=== PATIENT | male | born 1955 | race Caucasian/White ===

== ENCOUNTER 2020-12-17 09:50 | Outpatient (CLI) | payer OTHER, SELFPAY ==
--- NOTE | 2020-12-17 10:00 | CT_ITS ---
WS: [id number] LDCT LUNG CANCER SCREENING TECHNIQUE: Noncontrast CT of the chest with coronal and sagittal reformatted images. CLINICAL INFORMATION: lung screening COMPARISON: CT chest 8 DLP: 57.75 mGy.cm DIvol: 1.[address] scans at [facility] use at least one of these dose optimization techniques: automat ed exposure control; mA and/or kV adjustment per patient size (includes targeted exams where dose is matched to clinical indication); or iterative reconstruction. FINDINGS: Advanced chronic emphysematous changes. Calcified granulomatous disease. Bilateral perihilar and lowe r lobe bronchiectasis. Nodular fibrotic infiltrates within the lingula and left lower lobe similar to 2018 with subsegmental atelectasis.. Enlarged central pulmonary arteries can be seen with pulmonary arterial hypertension. Aortic calcification. No mediastinal or hilar lymphadenopathy. Chronic appeari ng anterior wedging in the lower thoracic spine. Mild thoracic kyphosis. CT/CT lung screening [id number] IMPRESSION: LUNG-RADS: 2-Benign Appearance or Behavior FOLLOW UP: 12 Month: Continue annual screening with LDCT
== END 2020-12-17 09:51 | disposition home or self-care (01) ==
PROVIDERS: Visit Provider Internal Medicine Pulmonary Disease
DX: Z12.2 Encounter for screening for malignant neoplasm of respiratory organs (principal); Z87.891 Personal history of nicotine dependence
CPT/HCPCS: 71271

== ENCOUNTER 2021-01-20 12:53 | Outpatient (CLI) | payer OTHER, SELFPAY ==
--- NOTE | 2021-01-20 13:00 | XR_ITS ---
WS: [id number] HAND LEFT TECHNIQUE: 3 views of the left hand CLINICAL INFORMATION: rule out inflammatory arthritis,STIFFNESS JOINT OF BOTH HAND COMPARISON: None. FINDINGS: Normal metacarpals. Normal MCP joint. Metacarpal heads are normal in appearance. Moderate PIP and DIP joint space narrowing. No evidence of acute fracture or dislocation. Degenerative arthritis first CM C and STT. Hypertrophic spurring at the DRUJ. Radiocarpal joint: Normal. Carpal bones: Normal. XR/XR hand LT min 3V* [id number] IMPRESSION: No significant erosive changes.
--- NOTE | 2021-01-20 13:30 | XR_ITS ---
WS: [id number] HAND RIGHT TECHNIQUE: 3 views of the right hand CLINICAL INFORMATION: rule out inflammatory arthritis,STIFFNESS JOINT OF BOTH HAND COMPARISON: None. FINDINGS: Normal metacarpals. Normal MCP joint. Metacarpal heads are normal in appearance. Advanced narrowing o f the second and third DIP joints with hypertrophic spurring. No evidence of acute fracture or disloc ation. No significant erosive changes. Chronic well-corticated ulna styloid avulsion. Radiocarpal joint: Moderate narrowing Carpal bones: Normal. XR/XR hand RT min 3V* [id number] IMPRESSION: 1. Advanced narrowing of the second and third DIP joints with hypertrophic spu rring. 2. Moderate narrowing of the radiocarpal joint. 3. No significant erosive changes.
== END 2021-01-20 12:54 | disposition home or self-care (01) ==
PROVIDERS: Visit Provider Internal Medicine Pulmonary Disease
DX: M25.641 Stiffness of right hand, not elsewhere classified; M25.642 Stiffness of left hand, not elsewhere classified
CPT/HCPCS: 73130

== ENCOUNTER 2021-02-12 10:47 | Outpatient (CLI) | payer OTHER, SELFPAY ==
--- NOTE | 2021-02-12 11:00 | XR_ITS ---
WS: [id number] XR lumbar spine 2-3V* [id number] REASON FOR EXAM: VERTEBROGENIC LOW BACK FINDINGS: Mild rotatory scoliosis convex left. No significant compression deformity or other focal vertebral body abnormality. Moderate narrowing of the L4-L5 disc space with moderately severe narrowing of the L5-S1 disc space. Moderately severe degenerative changes in the facet joints at L4-L5 and L5-S1. No spondylolysis identified. No significant spondylolisthesis. XR/XR lumbar spine 2-3V* [id number] IMPRESSION: Degenerative spondylosis most significant at L4-L5 and L5-S1.
--- NOTE | 2021-02-12 11:02 | XR_ITS ---
WS: [email or web address] XR thoracic spine 3V* [id number] REASON FOR EXAM: PAIN IN TSPINE FINDINGS: Normal alignment of the thoracic spine. No significant vertebral body abnormality. Mild narrowing of the intervertebral disc spaces in the mid and lower thoracic spine with small anter ior osteophytes. XR/XR thoracic spine 3V* [id number] IMPRESSION: Minimal change of degenerative spondylosis in the thoracic spine. No acute abno rmality.
== END 2021-02-12 10:48 | disposition home or self-care (01) ==
LOC: RAD 10:51
PROVIDERS: Visit Provider Anesthesiology Pain Medicine
DX: M54.6 Pain in thoracic spine (principal); M47.816 Spondylosis without myelopathy or radiculopathy, lumbar region; M47.817 Spondylosis without myelopathy or radiculopathy, lumbosacral region
CPT/HCPCS: 72072; 72100

== ENCOUNTER 2021-04-23 11:38 | Outpatient (CLI) | payer OTHER, SELFPAY ==
--- NOTE | 2021-04-23 11:48 | XR_ITS ---
WS: [id number] Exam: XR chest 2V* [id number] Date/Time of Exam: 04/23/2021 11:50 AM Reason For Exam: RIB FRACTURE - S/P TRAUMA Comparison 09/30/2017. There are chronic pulmonary changes of the fibrosis and scarring in both lower lung zones. The appear ance is stable. The lungs are markedly hyperinflated. Advanced changes of the emphysema seen in the u pper lung zones with hyperlucency. Heart size is top limits normal. Mediastinal contour is within nor mal limits. Bony structures appear to be intact. No pneumothorax. Prominent main pulmonary arteries. XR/XR chest 2V* [id number] IMPRESSION: 1. Extensive chronic changes of fibrosis and scarring in both lower lung zones. 2. Pulmonary hyperinflation and advanced emphysematous changes particularly in the upper lung zones. 3. No acute rib fracture or pneumothorax. 4. Prominent main pulmonary arteries which may indicate pulmonary hypertension.
== END 2021-04-23 11:39 | disposition home or self-care (01) ==
LOC: RAD 11:41
PROVIDERS: Visit Provider Internal Medicine Pulmonary Disease
DX: S22.39XA Fracture of one rib, unspecified side, initial encounter for closed fracture (principal); X58.XXXA Exposure to other specified factors, initial encounter
CPT/HCPCS: 71046

== ENCOUNTER → 2021-10-20 09:04 | Outpatient (BNVA) | payer OTHER, SELFPAY | PROVIDERS: Visit Provider Internal Medicine Pulmonary Disease | DX: R06.09 Other forms of dyspnea (principal); J44.9 Chronic obstructive pulmonary disease, unspecified; G47.33 Obstructive sleep apnea (adult) (pediatric); M25.641 Stiffness of right hand, not elsewhere classified; M25.642 Stiffness of left hand, not elsewhere classified; Z87.891 Personal history of nicotine dependence; J22 Unspecified acute lower respiratory infection; G82.20 Paraplegia, unspecified; Z99.3 Dependence on wheelchair; Z99.81 Dependence on supplemental oxygen | CPT/HCPCS: 99214 ==

== ENCOUNTER 2021-12-18 08:02 | Outpatient (CLI) | payer OTHER, SELFPAY ==
--- NOTE | 2021-12-18 08:24 | CT_ITS ---
WS: [email or web address] LDCT LUNG CANCER SCREENING TECHNIQUE: Noncontrast CT of the chest with coronal and sagittal reformatted images. CLINICAL INFORMATION: lung screening COMPARISON: CT December 17, 2020. DLP: 83.67 mGy.cm DIvol: Mean CTDIvol: 1.60 (mGy) All CT scans at [facility] use at least one of these dose optimization techniques: automat ed exposure control; mA and/or kV adjustment per patient size (includes targeted exams where dose is matched to clinical indication); or iterative reconstruction. FINDINGS: Aortic and coronary calcification. Small esophageal hiatal hernia. Advanced chronic emphysematous yenny nges. Calcified granulomatous disease. Bilateral perihilar and lower lobe bronchiectasis unchanged fr om previous. Nodular fibrotic infiltrates within the lingula and left lower lobe improved compared to 2020 with subsegmental atelectasis Enlarged central pulmonary arteries can be seen with pulmonary arterial hypertension unchanged. No me diastinal or hilar lymphadenopathy. Chronic appearing anterior wedging in the lower thoracic spine T1 1 is stable. Mild thoracic kyphosis. CT/CT lung screening [id number] IMPRESSION: LUNG-RADS: 2-Benign Appearance or Behavior FOLLOW UP: 12 Month: Continue annual screening with LDCT
== END 2021-12-18 08:03 | disposition home or self-care (01) ==
LOC: RAD 08:03
PROVIDERS: Visit Provider Internal Medicine Pulmonary Disease
DX: Z12.2 Encounter for screening for malignant neoplasm of respiratory organs (principal); Z87.891 Personal history of nicotine dependence
CPT/HCPCS: 71271

== ENCOUNTER → 2022-04-22 10:21 | Outpatient (BNVA) | payer OTHER, SELFPAY | PROVIDERS: Visit Provider Internal Medicine Pulmonary Disease | DX: R06.09 Other forms of dyspnea (principal); Z87.891 Personal history of nicotine dependence; R07.9 Chest pain, unspecified; J44.9 Chronic obstructive pulmonary disease, unspecified; M25.641 Stiffness of right hand, not elsewhere classified; M25.642 Stiffness of left hand, not elsewhere classified; G47.33 Obstructive sleep apnea (adult) (pediatric); Z99.81 Dependence on supplemental oxygen; Z77.22 Contact with and (suspected) exposure to environmental tobacco smoke (acute) (chronic) | CPT/HCPCS: 99214 ==

== ENCOUNTER 2022-09-11 07:34 | Outpatient (CLI) | payer OTHER, SELFPAY ==
--- NOTE | 2022-09-11 07:42 | ECG_ITS ---
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 Interpretive Statements NAME OF STUDY: LEXISCAN SESTAMIBI STRESS TEST INDICATION: Dyspnea on exertion PROCEDURE: At the baseline, the blood pressure was 117/54 mmHg with a heart rate of 50 bpm. The electrocardiogram showed sinus bradycardia, left axis deviation. Possible old anteroseptal infarct. Deep T wave inversion in lead II, III, aVF, V5 and V6. The Lexiscan was infused over a period of 20 seconds. A total of 0.4 milligrams of Lexiscan was infused. The stress phase was continued for a total of 5 minutes. Heart rate at the end of the stress phase was 60 bpm with a blood pressure 127/58 mm Hg. The EKG at the peak infusion revealed no significant ST-T wave changes. Sestamibi was injected 20 seconds after the Lexiscan infusion. Blood pressure at the end of the recovery phase was 107/64 mmHg with a heart rate of 66 beats per minute. CONCLUSION: 1. Non diagnostic EKG changes with the LexiScan infusion [address]-T wave changes. 2. No LexiScan induced chest pain or cardiac arrhythmia. 3. Normal blood pressure and heart rate response. 4. Sestamibi/sestamibi perfusion scan pending; see separate report. Electronically Signed On 09-20-2022 13:28:39 CDT by Asia Saha M.D. [id number]
--- NOTE | 2022-09-11 07:43 | NMCV_ITS ---
NM dillon perf SPECT r/s* [id number] Suraj Sandy Age: 67 Gender: M : 1955 Exam Date: 09/11/2022 08:00 Ordering Phys: Michael Chavez MD Technologist: MINDI Don Exam Location: [facility] Indications: SHORTNESS OF BREATH, CHEST PAIN STRESS TEST Please see separate stress test report in [facility] for full findings IMAGE PROTOCOL Rest/Stress 1 Lexiscan Day Radiopharmaceutical Dose (mCi) Administration Site Administered by Rest: Tc-99m 11.0 IV Jim Larry, ORACLE WMS CONSULTANT Sestamibi Stress:Tc-99m 30.2 IV Jim Larry, ORACLE WMS CONSULTANT Sestamibi Rest: 11-Sep-2022 60 Discovery 630 Stress: 11-Sep-2022 30 Discovery 630 0.4mg Lexiscan. Images obtained in supine and prone position. SPECT RESULTS Technical Quality: Excellent Raw Data Analysis: Normal Image Corrections: No attenuation or motion correction applied Summed Stress Score: 10 Summed Rest Score: 8 Summed Difference Score: 5 PERFUSION FINDINGS Medium sized perfusion abnormality of moderate severity of mid inferior, mid inferoseptal and apical septal long on rest images with reversibility noted in mid to apical inferior and basal to mid inferolateral , apical septal and apical lateral long on stress images. There is improved tracer uptake in prone stress images. FUNCTIONAL RESULTS (calculated via Gated SPECT) Stress Image LV EF (%): 65 Stress EDV (mL):125 TID: 0.81 Stress ESV (mL):44 FUNCTIONAL FINDINGS: The left ventricle is normal in size. Transient Ischemia Dilatation of 0.81. The left ventricular ejection fraction is normal with a value of 65%. There is normal left ventricular wall thickening. Normal end diastolic and end systolic volumes. IMPRESSIONS 1. Medium sized partially reversible perfusion abnormality of moderate severity of mid to apical inferior, basal to mid inferolateral , apical septal, apical anterior and apical lateral long. There is improved tracer uptake in prone stress images. 2. This may represent old myocardial infarction with moderate per-infarct ischemia in right coronary artery and left anterior descending artery territory. However, specifity of this finding is low given findings on prone images. 3. Overall left ventricular systolic function is normal without regional wall motion abnormalities, LVEF=65%. 4. EKG portion of the study will be reported separately. Asia Saha MD (Electronically Signed) Final Date: 18 September 2022 20:15 S
[2022-09-11 08:01] VITALS: BMI 18.6
[2022-09-11] MEDS: regadenoson 0.4 Mg/5 ml Syringe IVP (09:14)
[2022-09-11 09:35] VITALS: BP 127/58; PULSE 72
== END 2022-09-11 07:35 | disposition home or self-care (01) ==
PROVIDERS: Visit Provider Internal Medicine Pulmonary Disease
DX: R06.09 Other forms of dyspnea (principal); R07.9 Chest pain, unspecified; R94.39 Abnormal result of other cardiovascular function study
CPT/HCPCS: 36415; 78452; 93017; 96374; A9500; J2785

== ENCOUNTER → 2022-12-21 13:07 | Outpatient (BNVA) | payer OTHER, SELFPAY | PROVIDERS: Visit Provider Internal Medicine Pulmonary Disease | DX: J44.9 Chronic obstructive pulmonary disease, unspecified (principal); M25.641 Stiffness of right hand, not elsewhere classified; M25.642 Stiffness of left hand, not elsewhere classified; Z87.891 Personal history of nicotine dependence; G47.33 Obstructive sleep apnea (adult) (pediatric); Z12.2 Encounter for screening for malignant neoplasm of respiratory organs; Z99.81 Dependence on supplemental oxygen; Z99.89 Dependence on other enabling machines and devices; Z77.22 Contact with and (suspected) exposure to environmental tobacco smoke (acute) (chronic) | CPT/HCPCS: 71046; 99214 ==

== ENCOUNTER 2023-01-05 12:19 | Outpatient (CLI) | payer OTHER, SELFPAY ==
--- NOTE | 2023-01-05 12:23 | CT_ITS ---
WS: [id number] LDCT LUNG CANCER SCREENING HISTORY: Cancer Screening TECHNIQUE: Axial imaging performed from the apices to 1 cm below the costophrenic angles. Coronal and sagittal reformats are submitted with axial MIP series. All CT scans at [facility] use at least one of these dose optimization techniques: automated exposure control; mA and/or kV adjustment per patient size (includes targeted exams where dose is matched to clinical indication); or iterativ e reconstruction. DLP: 49.31 mGy.cm DIvol: Mean CTDIvol: 0.80 (mGy) COMPARISON: 12/18/2021 Diagnostic quality: Satisfactory Lungs: Marked pulmonary hyperexpansion with bullous disease in the upper lung meredith. Crowding of the lung markings in the lower lung meredith. Partial atelectasis superior segment LEFT lower lobe. There is mild bronchiectasis in the lower lung meredith. No mass or interval change. No pulmonary nodules are identified within the fibrosis and atelectasis. Heart: Normal size heart with no pericardial effusion.. Other findings: Moderate atherosclerosis aorta. Pulmonary arteries large. No adenopathy. No adrenal m ass. Mild anterior wedging of T11 is stable. IMPRESSION: CT/CT lung screening [id number] LUNG-RADS: 2-Benign Appearance or Behavior FOLLOW UP: 12 Month: Continue annual screening with LDCT OTHER FINDINGS (S MODIFIER): None.
== END 2023-01-05 12:20 | disposition home or self-care (01) ==
LOC: RAD 12:20
PROVIDERS: Visit Provider Internal Medicine Pulmonary Disease
DX: Z12.2 Encounter for screening for malignant neoplasm of respiratory organs (principal); Z87.891 Personal history of nicotine dependence
CPT/HCPCS: 71271

== ENCOUNTER → 2023-06-21 09:34 | Outpatient (BNVA) | payer OTHER, SELFPAY | PROVIDERS: Visit Provider Internal Medicine Pulmonary Disease | DX: J44.9 Chronic obstructive pulmonary disease, unspecified (principal); M25.641 Stiffness of right hand, not elsewhere classified; M25.642 Stiffness of left hand, not elsewhere classified; Z87.891 Personal history of nicotine dependence; R06.00 Dyspnea, unspecified; G47.33 Obstructive sleep apnea (adult) (pediatric) | CPT/HCPCS: 99214 ==

== ENCOUNTER → 2023-09-16 08:23 | Outpatient (BNVA) | payer OTHER, SELFPAY | DX: G56.03 Carpal tunnel syndrome, bilateral upper limbs (principal); G56.20 Lesion of ulnar nerve, unspecified upper limb | CPT/HCPCS: 95910 ==

== ENCOUNTER → 2023-09-27 11:21 | Outpatient (BNVA) | payer OTHER, SELFPAY | PROVIDERS: Visit Provider Internal Medicine Cardiovascular Disease | DX: R06.02 Shortness of breath (principal); R07.9 Chest pain, unspecified | CPT/HCPCS: 93005; 99205 ==

== ENCOUNTER 2023-11-03 08:54 | Outpatient (CLI) | payer OTHER, SELFPAY ==
--- NOTE | 2023-11-03 09:15 | USCV_ITS ---
Du Suraj Age: 68 Gender: M : 1955 Exam Date: 11/03/2023 09:23 Ordering Phys: Justus Abdul MD ([email or web address]) Technologist: Exam Location: [facility] [place] Indication: cp BP: 125 / 75 HR: 231 Rhythm: Sinus Technical Quality: Adequate MEASUREMENTS (Male / Female) Normal Values 2D ECHO LV Diastolic Diameter PLAX 4.0 cm 4.2 - 5.9 / 3.9 - 5.3 cm IVS Diastolic Thickness 1.7 cm 0.6 - 1.0 / 0.6 - 0.9 cm IVS Systolic Thickness 1.8 cm LVPW Diastolic Thickness 1.1 cm 0.6 - 1.0 / 0.6 - 0.9 cm LVPW Systolic Thickness 2.0 cm LVOT Diameter 2.0 cm LV Ejection Fraction 2D Teich 52.7 % LA Diameter 3.4 cm Aorta at Sinotubular Diameter 2.9 cm M-MODE LA Ao Ratio MM 1.1 AV Cusp Separation MM 2.4 cm DOPPLER AV Peak Velocity 113.0 cm/s TR Peak Velocity 252.0 cm/s TR Peak Gradient 25.4 mmHg TV Peak E Velocity 65.0 cm/s Right Atrial Pressure 3.0 mmHg Pulmonary Artery Systolic Pressu 28.4 mmHg PV Peak Velocity 94.3 cm/s FINDINGS Left Ventricle Normal LV size with borderline low ejection fraction of 50 to 55%.abnormal septal motion consistent with conduction abnormality. Right Ventricle The right ventricle is normal in size and function. Right Atrium The right atrium is normal in size. Left Atrium The left atrium is normal in size. Mitral Valve No gross abnormalities noted Aortic Valve Trace aortic valve regurgitation. Tricuspid Valve Trace to mild tricuspid valve regurgitation. Pulmonic Valve No gross abnormality noted Pericardium No pericardial effusion. Aorta Normal aortic annulus size. IVC Inferior vena cava not visualized. CONCLUSIONS Normal LV size with borderline low ejection fraction of 50 to 55%.abnormal septal motion consistent with conduction abnormality. Trace aortic valve regurgitation. Trace to mild tricuspid valve regurgitation. Estimated pulmonary artery peak systolic pressure 28 mmHg There is no pericardial effusion. There are no intracardiac masses. No similar previous studies are available for comparison Dr Justus Abdul MD [facility] (Electronically Signed) Final Date: 04 November 2023 09:03 S
== END 2023-11-03 08:55 | disposition home or self-care (01) ==
PROVIDERS: Visit Provider Internal Medicine Cardiovascular Disease
DX: R93.1 Abnormal findings on diagnostic imaging of heart and coronary circulation (principal); R06.09 Other forms of dyspnea
CPT/HCPCS: 36415; 80048; 83880; 93306

== ENCOUNTER 2024-03-13 18:03 | Inpatient (IN) | payer OTHER, SELFPAY ==
[2024-03-13 18:07] VITALS: BP 137/89; PULSE 89; RESP 18; TEMP 37.1; O2SAT 96
--- NOTE | 2024-03-13 18:17 | ECG_ITS ---
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 Measurements Intervals [place] Rate: 90 P: 113 OK: 168 QRS: -88 QRSD: 116 T: 90 QT: 342 QTc: 420 Interpretive Statements SINUS RHYTHM PATTERN CONSISTENT WITH PULMONARY DISEASE LEFT ANTERIOR FASCICULAR BLOCK [QRS AXIS <= -45, QR IN I, RS IN II] MODERATE ST DEPRESSION [0.05+ mV ST DEPRESSION] Compared to ECG 09/27/2023 11:24:59 ST (T wave) deviation now present Electronically Signed On 03-14-2024 23:50:46 PAD MACHINE FEEDER by Justus Abdul M.D. [id number]
--- NOTE | 2024-03-13 18:18 | XRR_ITS ---
PROCEDURE INFORMATION: Exam: XR Chest Exam date and time: 03/13/2024 6:32 PM Age: 68 years old Clinical indication: Dyspnea TECHNIQUE: Imaging protocol: Radiologic exam of the chest. Views: 1 view. COMPARISON: CT lung screening [id number] 01/05/2023 1:00 PM FINDINGS: Lungs: Curvilinear atelectasis or scarring in the left lung base. There appears to be increased interstitial lung markings at the lung bases. No consolidation. Pleural spaces: Unremarkable. No pleural effusion. No pneumothorax. Heart/Mediastinum: Cardiomegaly with pulmonary vascular congestion. Bones/joints: Unremarkable. XR/XR chest 1V portable [id number] IMPRESSION: Cardiomegaly with pulmonary vascular congestion. Findings suggestive of interstitial pulmonary edema.
[2024-03-13 18:24] VITALS: BP 135/87; PULSE 84; RESP 16; O2SAT 96
--- NOTE | 2024-03-13 18:39 | ED_ITS ---
HPI - SOB/Dyspnea 2 General: Chief Complaint: Shortness of Breath/Dyspnea Stated Complaint: edema/sob Time Seen by Provider: 03/13/24 18:17 History of Present Illness: HPI Narrative: Patient presents to the ER with complaints of shortness of breath and bilateral lower extremity edema with these been going on for the past 4 to 5 days. EMS reports he was 81% on room air and at their time of arrival. Per patient he usually wears 2 L during the daytime and 4 L at night. Also reports some intermittent chest pain. Does have a history of COPD denies CHF or any diuretics. Related Data Home Medications Medication Instructions Recorded Confirmed loratadine 10 mg tablet (Allergy 10 mg PO DAILY 11/13/20 09/27/23 Relief (loratadine)) trazodone 100 mg tablet 100 mg PO DAILY 11/13/20 09/27/23 ipratropium 20 mcg-albuterol 100 1 puff inhalation Q6H PRN 06/21/23 09/27/23 mcg/actuation mist for inhalation (Combivent Respimat) Previous Rx's Medication Instructions Recorded nebulizer accessories #1 ea 11/13/20 budesonide 160 mcg-glycopyr 9 2 inh inhalation BID #10.7 grams 04/23/21 mcg-formot 4.8 mcg/actuation HFA inhaler (Breztri Aerosphere) ipratropium 0.5 mg-albuterol 3 mg 3 ml inhalation Q6H PRN shortness 04/22/22 (2.5 mg base)/3 mL nebulization of breath or wheezing #180 mL soln Portable Oxygen #1 ea 12/21/22 aspirin 81 mg tablet,delayed 81 mg PO DAILY #30 tabs 09/27/23 release (Adult Low Dose Aspirin) Allergies Allergy/AdvReac Type Severity Reaction Status Date / Time adhesive tape Allergy Unknown Unknown Verified 09/27/23 10:29 meperidine Allergy Unknown Unknown Verified 09/27/23 10:29 Review of Systems 2 General: Reports: 10 or more systems reviewed and unremarkable except in HPI and below PFSH ED 2 PFSH: Family History Mother CAD (coronary artery disease) Father Hypertension Denies family history of Diabetes Social History Smoking and tobacco/nicotine status: former use of tobacco/nicotine Quit status (tobacco/nicotine): has quit using Year quit tobacco: does not remember Former quit date comment: 1ppd x 11 years Second hand smoke exposure: Yes Physical Exam 2 Const: COMMON NORMALS: no acute distress, average body habitus, patient oriented x3, no limitations, healthy appearing, alert and well nourished HENMT: COMMON NORMALS: normocephalic, atraumatic, hearing grossly normal bilaterally, external ears normal, Normal external nose present and moist oral mucous membranes HEAD & SCALP: normocephalic and atraumatic NOSE: Normal external nose present EXTERNAL EAR: Yes external ears normal Neck/C-Spine: COMMON NORMALS: no JVD Chest: COMMONS NORMALS: normal inspection of the chest and normal palpation of entire chest wall Resp: COMMON NORMALS: normal respiratory effort, No retractions and No use of accessory muscles; negative for clear to auscultation bilaterally (Decreased breath sounds bilaterally worse at the bases) AUSCULTATION: not clear to auscultation bilaterally (Decreased breath sounds bilaterally worse at the bases) Cardio: COMMON NORMALS: no JVD, regular rate, regular rhythm, S1 normal heart sound present, S2 normal heart sound present, No gallops present (Cardio), No clicks present (Cardio) and No murmurs present (Cardio) RATE: regular rate RHYTHM: regular rhythm HEART SOUNDS: S1 normal heart sound present and S2 normal heart sound present GI: COMMON NORMALS: Normal to inspection, nondistended, normoactive bowel sounds present, Soft to palpation, non-tender, No hepatosplenomegaly present and no masses PALPATION: Yes Soft to palpation and Yes No hepatosplenomegaly present Extremity: NARRATIVE EXTREMITY EXAM: 2+ pitting edema bilateral lower extremi ties Neuro: COMMON NORMALS: patient oriented x3 SENSORIUM/ORIENTATION: Yes alert Course 2 Vital Signs: Vital signs: Vital Signs Temperature 98.8 F 03/13/24 18:07 Pulse Rate 94 03/13/24 19:31 Respiratory Rate 26 H 03/13/24 19:31 Blood Pressure 138/99 03/13/24 19:31 Pulse Oximetry 95 03/13/24 19:31 Oxygen Delivery Me thod Nasal Cannula 03/13/24 19:31 Oxygen Flow Rate 5 03/13/24 19:31 MDM - SOB/Dyspnea Medical Decision Making Discussed the results with the patient and with Dr. Hager we will place patient observation. Patient appears to be in hypoxic respiratory failure with CHF. We did give the patient 40 of IV Lasix. Patient's BNP was elevated as well as his troponin slightly elevated 37 Medical Records I reviewed the patient's medical records. Lab Data I reviewed the patient's lab results. 03/13/24 18:30 03/13/24 18:30 Labs/Radiology: Radiology Impressions Chest X-Ray 03/13/24 18:18 IMPRESSION: Cardiomegaly with pulmonary vascular congestion. Findings suggestive of interstitial pulmonary edema. Laboratory Results WBC 9.43 10^3/uL (3.29-11.43) 03/13/24 18:30 RBC 5.43 10^6/uL (3.85-5.65) 03/13/24 18:30 Hgb 16.00 g/dL (11.27-16.99) 03/13/24 18:30 Hct 50.7 % (37-53) 03/13/24 18:30 MCV 93.4 fl (82-101) 03/13/24 18:30 MCH 29.5 pg (27-33) 03/13/24 18:30 MCHC 31.6 g/dL (30-55) 03/13/24 18:30 RDW 15.4 % (12.1-15.1) H 03/13/24 18:30 Plt Count 318 10^3/cmm (157-399) 03/13/24 18:30 MPV 10.3 fL (7.4-10.4) 03/13/24 18:30 Neut % (Auto) 79.5 % 03/13/24 18:30 Lymph % (Auto) 9.9 % 03/13/24 18:30 [place] % (Auto) 8.8 % 03/13/24 18:30 Eos % (Auto) 0.8 % 03/13/24 18: Baso % (Auto) 0.8 % 03/13/24 18:30 Neut # (Auto) 7.49 10^3/uL (1.8-7.7) 03/13/24 18:30 Lymph # (Auto) 0.9 10^3/uL (0.8-4.8) 03/13/24 18:30 [place] # (Auto) 0.8 10^3/uL (0.2-0.9) 03/13/24 18:30 Eos # (Auto) 0.1 10^3/uL (0.0-0.8) 03/13/24 18:30 Baso # (Auto) 0.1 10^3/uL (0.0-0.1) 03/13/24 18:30 Nucleated RBC % (auto) 0 % 03/13/24 18: Nucleated RBCs # 0.0 /100WBC 03/13/24 18:30 Specimen Type Arterial 03/13/24 18:37 Sample Site Brachial, left 03/13/24 18:37 ABG pH 7.36 (7.35-7.45) 03/13/24 18:37 ABG pCO2 63.4 mmHg (35-45) H* 03/13/24 18:37 ABG pO2 70.5 mmHg (80.0-100.0) L 03/13/24 18:37 ABG HCO3 35.6 mmol/L (22-26) H 03/13/24 18:37 ABG O2 Saturation 93.9 03/13/24 18:37 ABG Base Excess 7.4 mmol/L (-2.0-2.0) H 03/13/24 18:37 Isaiah Test N/a 03/13/24 18:37 A-a O2 Gradient 0.5 mmHg (5-10) L 03/13/24 18:37 Hematocrit 48.3 % (42-52) 03/13/24 18:37 Hgb O2 Saturation 89.2 % (95-100) L 03/13/24 18:37 Carboxyhemoglobin 4.1 %THgb (0.4-20.1) 03/13/24 18:37 Methemoglobin 0.9 % (0.4-1.5) 03/13/24 18:37 Total Hemoglobin 15.8 g/dL (14-18) 03/13/24 18:37 Sodium 139.0 mmol/L (131-143) 03/13/24 18:37 Potassium 4.2 mmol/L (3.5-5.0) 03/13/24 18:37 Glucose 81.0 mg/dL (70-115) 03/13/24 18:37 Ionized Calcium 1.2 mmol/L (1.1-1.4) 03/13/24 18:37 O2 Delivery Device Nc 03/13/24 18:37 O2 Liters/Min 6.0 % 03/13/24 18:37 Field Organizer ID [email or web address] 03/13/24 18:37 Sodium 141 mmol/L (136-145) 03/13/24 18:30 Potassium 5.1 mmol/L (3.5-5.1) 03/13/24 18:30 Chloride 99 mmol/L (98-107) 03/13/24 18:30 Carbon Dioxide 31 mmol/L (22-29) H 03/13/24 18:30 Anion Gap 16.1 (5-19) 03/13/24 18:30 BUN 20 mg/dL (8-23) 03/13/24 18:30 Creatinine 0.7 mg/dL (0.7-1.2) 03/13/24 18:30 GFR Calculation 111.8 mL/min (90-130) 03/13/24 18:30 Glucose 78 mg/dL (65-115) 03/13/24 18:30 Calculated Osmolality 293 mOsm/kg (285-295) 03/13/24 18:30 Calcium 8.6 mg/dL (8.5-10.5) 03/13/24 18:30 Total Bilirubin 0.5 mg/dL (0.15-1.2) 03/13/24 18:30 AST 26 U/L (0-40) 03/13/24 18:30 ALT 33 U/L (0-41) 03/13/24 18:30 Alkaline Phosphatase 110 U/L (40-130) 03/13/24 18:30 Troponin T Baseline 37 ng/L (0-15) H 03/13/24 18:30 NT-Pro-B Natriuret Pep 5361 pg/mL (0-125) H 03/13/24 18:30 Total Protein 6.2 g/dL (6.6-8.7) L 03/13/24 18:30 Albumin 3.5 g/dL (3.5-5.2) 03/13/24 18:30 Globulin 2.7 g/dL (1.3-4.6) 03/13/24 18:30 Coronavirus (PCR) Negative (Negative) 03/13/24 18:22 Influenza A (PCR) Negative (Negative) 03/13/24 18:22 Influenza Type B (PCR) Negative (Negative) 03/13/24 18:22 RSV (PCR) Negative (Negative) 03/13/24 18:22 All radiology interpretation(s) finalized by discharge Discharge Plan Discharge Patient Disposition: Placed in Observation Clinical Impression: Congestive heart failure, Acute exacerbation of chronic obstructive airways disease Coding Level of Care Code ED Armature And Rotor Winder for Nilesh Martin
[2024-03-13 18:49] LABS: ABG PH Result 7.36 (7.35-7.45); Alveolar-Arterial Oxygen Gradi 0.5 mmHg (5-10); Arterial Blood Gas Hematocrit 48.3 % (42-52); Base Excess ABG 7.4 mmol/L (-2.0-2.0); Blood Gas Operator Identificat AMH; Blood Gas Sample Site Brachial, left; Blood Gas Sample Type Arterial; Carboxyhemoglobin 4.1 %THgb (0.4-20.1); HCO3 ABG 35.6 mmol/L (22-26); HGB O2 Sat 89.2 % (95-100); Ionized Calcium Level - ABG 1.2 mmol/L (1.1-1.4); Methemoglobin 0.9 % (0.4-1.5); Oxygen Device NC; Oxygen Saturation ABG 93.9; PO2 ABG 70.5 mmHg (80.0-100.0); Potassium Level - ABG 4.2 mmol/L (3.5-5.0); Total Hemoglobin 15.8 g/dL (14-18)
[2024-03-13 18:50] LABS: ABG PCO2 63.4 mmHg (35-45)
[2024-03-13 18:51] LABS: Basophils # 0.1 10^3/uL (0.0-0.1); Basophils % 0.8 %; Eosinophils # 0.1 10^3/uL (0.0-0.8); Eosinophils % 0.8 %; Hematocrit 50.7 % (37-53); Lymphocytes # 0.9 10^3/uL (0.8-4.8); Lymphocytes % 9.9 %; Mean Corpuscular HGB Conc 31.6 g/dL (30-55); Mean Corpuscular Hemoglobin 29.5 pg (27-33); Mean Corpuscular Volume 93.4 fl (82-101); Mean Platelet Volume 10.3 fL (7.4-10.4); Monocytes # 0.8 10^3/uL (0.2-0.9); Monocytes % 8.8 %; Neutrophils # 7.49 10^3/uL (1.8-7.7); Neutrophils % 79.5 %; Nucleated Red Blood Cells % 0 %; Platelet Count 318 10^3/cmm (157-399); Red Blood Count 5.43 10^6/uL (3.85-5.65); Red Cell Distribution Width 15.4 % (12.1-15.1); White Blood Count 9.43 10^3/uL (3.29-11.43)
[2024-03-13 19:09] LABS: Alanine Aminotransferase 33 U/L (0-41); Alkaline Phosphatase 110 U/L (40-130); Aspartate Amino Transferase 26 U/L (0-40); Blood Urea Nitrogen 20 mg/dL (8-23); Calcium 8.6 mg/dL (8.5-10.5); Creatinine Clr Calc Pharmacy 86.4183; Glucose 78 mg/dL (65-115); Total Bilirubin 0.5 mg/dL (0.15-1.2)
[2024-03-13 19:13] LABS: Troponin(5th) Baseline 37 ng/L (0-15)
[2024-03-13 19:13] LABS: Covid PCR NEGATIVE (Negative); Influenza A NEGATIVE (Negative); Influenza B NEGATIVE (Negative); Respiratory Syncytial Virus Ce NEGATIVE (Negative)
[2024-03-13 19:31] VITALS: BP 138/99; PULSE 94; RESP 26; O2SAT 95
[2024-03-13 19:35] LABS: Chloride 99 mmol/L (98-107); Osmolality Calculated 293 mOsm/kg (285-295); Potassium 5.1 mmol/L (3.5-5.1); Sodium 141 mmol/L (136-145)
[2024-03-13] MEDS: FUROsemide 10 mg/mL SDV 4mL 40 MG IVP (19:56)
[2024-03-13 19:59] LABS: Albumin Level 3.5 g/dL (3.5-5.2); Anion Gap 16.1 (5-19); Carbon Dioxide 31 mmol/L (22-29); Globulin 2.7 g/dL (1.3-4.6); Glomerular Filtration Rate 111.8 mL/min (90-130); Total Protein 6.2 g/dL (6.6-8.7)
[2024-03-13 20:00] LABS: NT Pro B Type Natriuretic Pept 5361 pg/mL (0-125)
--- NOTE | 2024-03-13 20:18 | ECG_ITS ---
[facility] Date: 2024-03-13 Pat Name: Suraj Sandy Department: Room: Gender: Male Area Development Consultant: : 1955 Requested By: Suraj Escobedo Order Number: [id number] Reading MD: JUAN FRANCISCO PETTY Measurements Intervals [place] Rate: 89 P: 104 TN: 181 QRS: 264 QRSD: 110 T: 86 QT: 341 QTc: 417 Interpretive Statements SINUS RHYTHM WITH OCCASIONAL VENTRICULAR PREMATURE COMPLEXES ARM LEADS REVERSED [INVERTED P AND QRS IN I] Compared to ECG 03/13/2024 18:17:20 Ventricular premature complex(es) now present Left anterior fascicular block no longer present ST (T wave) deviation no longer present Electronically Signed On 03-20-2024 23:30:09 AIR AND WATER TESTER by JUAN FRANCISCO PETTY [id number]
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
[2024-03-13 20:50] LABS: Troponin 5 2HR 40.51 ng/L (0-15); Troponin 5 2HR Delta 3.51 ABS# (0-10)
--- NOTE | 2024-03-13 21:03 | USCV_ITS ---
Sandy Suraj Age: 68 Gender: M : 1955 Exam Date: 03/13/2024 21:25 Ordering Phys: Lavon Hager MD Technologist: ROSY Exam Location: [facility] [place] Indication: Evaluate for new CHF O2-dependent 4L, BLE, SOB BP: 138 / 99 HR: 82 Rhythm: Sinus Technical Quality: Adequate MEASUREMENTS (Male / Female) Normal Values 2D ECHO LV Diastolic Diameter PLAX 4.4 cm 4.2 - 5.9 / 3.9 - 5.3 cm IVS Diastolic Thickness 1.2 cm 0.6 - 1.0 / 0.6 - 0.9 cm IVS Systolic Thickness 1.5 cm LVPW Diastolic Thickness 1.0 cm 0.6 - 1.0 / 0.6 - 0.9 cm LVPW Systolic Thickness 2.0 cm LVOT Diameter 2.2 cm LV Ejection Fraction 2D Teich 60.5 % LV Ejection Fraction MOD 4C 67.4 % LV Ejection Fraction MOD 2C 43.5 % LV Ejection Fraction 2C AL 46.6 % LA Diameter 3.9 cm Aorta at Sinotubular Diameter 4.2 cm IVC Diameter 2.0 cm M-MODE LA Ao Ratio MM 1.0 AV Cusp Separation MM 2.4 cm DOPPLER AV Peak Velocity 119.0 cm/s LVOT Peak Velocity 52.0 cm/s AV Area Cont Eq vti 2.3 cm squared AV Area Cont Eq pk 1.7 cm squared MV Peak Velocity 99.0 cm/s MV Area PHT 4.5 cm squared Mitral E to A Ratio 0.8 TV Peak Velocity 268.3 cm/s TR Peak Velocity 297.0 cm/s TR Peak Gradient 35.3 mmHg PV Peak Velocity 82.0 cm/s FINDINGS Left Ventricle Mild concentric left ventricular hypertrophy. Mild diffuse hypokinesia with an ejection fraction of 44%. Flattening of the interventricular septum during systole Right Ventricle Paradoxical septal motion Dilated right ventricle with diffuse hypokinesia and moderately depressed ejection fraction Right Atrium Mildly dilated Left Atrium Mildly dilated Mitral Valve No gross abnormalities noted Aortic Valve Trace aortic valve regurgitation. Tricuspid Valve Mild tricuspid valve regurgitation. Pulmonic Valve Mild pulmonary valve regurgitation. Pericardium No pericardial effusion. Aorta Normal ascending aorta dimension. IVC The inferior vena cava appears normal. CONCLUSIONS Mild concentric left ventricular hypertrophy. Mild diffuse hypokinesia with an ejection fraction of 44%. Dilated right ventricle with diffuse hypokinesia and moderately depressed ejection fraction Trace aortic valve regurgitation. Mild tricuspid valve regurgitation. Mild pulmonary valve regurgitation. Estimated pulmonary artery peak systolic pressure 38 mmHg. There are some features of There is no pericardial effusion. There are no intracardiac masses. Compared to the study from 11/03/2023, there is drop in the ejection fraction of both right and left ventricle Dr Justus Abdul MD [facility] (Electronically Signed) Final Date: 14 March 2024 23:43 S
[2024-03-13 22:57] VITALS: O2SAT 97
[2024-03-13 23:00] VITALS: BP 109/73; PULSE 85; RESP 17; O2SAT 96
[2024-03-13] MEDS: ipratropium-albuterol 3 mL Neb INHALATION (23:06)
[2024-03-13 23:07] VITALS: PULSE 88
[2024-03-13] MEDS: enoxaparin 40 mg/0.4 mL Syringe SUBCUT (23:17)
[2024-03-13] MEDS: trazodone 100 mg Tablet PO (23:17)
[2024-03-13] MEDS: LORazepam 2 mg/mL INJ 1 mL 0.5 MG IVP (23:17)
[2024-03-13 23:27] LABS: Procalcitonin 0.04 ng/mL (0-0.5)
[2024-03-14] VITALS (14 sets, daily range): BP systolic 92–139; BP diastolic 59–78; PULSE 80–103; RESP 14–25; TEMP 36.7; O2SAT 87–97; BMI 20.7
--- NOTE | 2024-03-14 00:18 | ECG_ITS ---
[facility] Test Date: 2024-03-13 Pat Name: Suraj Sandy Department: Room: EDIP Gender: Male Program Management Intern: : 1955 Requested By: Suraj Escobedo Order Number: [id number] Chanelle MD: JUAN FRANCISCO PETTY Measurements Intervals [place] Rate: 90 P: 113 DC: 168 QRS: -88 QRSD: 116 T: 90 QT: 342 QTc: 420 Interpretive Statements SINUS RHYTHM PATTERN CONSISTENT WITH PULMONARY DISEASE LEFT ANTERIOR FASCICULAR BLOCK [QRS AXIS <= -45, QR IN I, RS IN II] MODERATE ST DEPRESSION [0.05+ mV ST DEPRESSION] Compared to ECG 09/27/2023 11:24:59 ST (T wave) deviation now present Electronically Signed On 03-20-2024 23:30:11 LATEX CASTER by JUAN FRANCISCO PETTY [email or web address]
[2024-03-14 01:08] LABS: Troponin 5 6HR 31.26 ng/L (0-15)
[2024-03-14 01:10] LABS: Troponin 5 6HR Delta -5.74 ng/L (0-12)
[2024-03-14] MEDS: ipratropium-albuterol 3 mL Neb INHALATION ×4 (03:25→21:15)
[2024-03-14 05:07] LABS: Anion Gap 5.9 (5-19); Blood Urea Nitrogen 17 mg/dL (8-23); Calcium 8.5 mg/dL (8.5-10.5); Chloride 99 mmol/L (98-107); Creatinine Clr Calc Pharmacy 86.4183; Glomerular Filtration Rate 111.8 mL/min (90-130); Glucose 79 mg/dL (65-115); Magnesium 1.8 mg/dL (1.7-2.3); Osmolality Calculated 294 mOsm/kg (285-295); Phosphorus 3.3 mg/dL (2.5-4.5); Potassium 4.9 mmol/L (3.5-5.1); Sodium 142 mmol/L (136-145)
[2024-03-14 05:15] LABS: Carbon Dioxide 42 mmol/L (22-29)
[2024-03-14] MEDS: budesonide 0.5 mg/2 mL Neb INHALATION (08:29)
--- NOTE | 2024-03-14 09:18 | PC.CHAP ---
Pastoral Care Encounter/Spiritual Assessment Type of Contact [] Declined guinea pig breeder visit [] Patient/Family/Request visit [] Outpatient visit [] Follow-up visit [] Physician referral [] Code/Alert [] Routine visit [] Staff referral [] Actively dying [x] Patient sleeping [] Family support [] [] Out of room [] Palliative care [] [] Receiving care in room [] Pre-surgical visit [] Trauma [] Long length of stay [] ICU visit [] Other: Relational/Emotional Strength [] Patient feels connected with others/family/visitors/staff [] Distress [] Loneliness/isolation [] Abandonment Spirituality of Patient [] Person of [place] [] Attends Spiritism of their [place] [] Believes in Prayer [] Reads Bible or Taoist materials [] There are Spiritual issues to be addressed Disintegrator Feeder Interventions [] Prayer [] Active listening [] Non-anxious presence [] Spiritual/emotional support [] Crisis/trauma care [] Spiritual counseling [] Bereavement support [] Provided bereavement packet [] Provided Bible/devotional materials [] Provided toy/stuffed animal, coloring book to patient or family member [] Provided Communion [] Anointing/[place] [] Salvation [] Completed spiritual assessment [] Other: Impact on Illness or Injury [] Angry [] Fearful [] Anxious [] Often cries [] Exhaustion [] Unable to work [] Unable to attend rastafarian [] Unable to walk/stand [] Unable to read [] Unable to drive [] Unable to eat/drink [] Unable to sleep [] Unable to be with family [] Patient intubated [] Other: Summary Time spent with patient
[2024-03-14] MEDS: aspirin 81 mg EC Tablet PO (09:26)
[2024-03-14] MEDS: baclofen 10 mg Tablet 20 MG PO ×2 (09:26→14:30)
[2024-03-14] MEDS: potassium chloride ER 20 mEq Tablet PO ×2 (09:27→21:01)
[2024-03-14] MEDS: metOLazone 5 MG Tablet PO ×2 (09:27)
[2024-03-14] MEDS: loratadine 10 mg Tablet PO (09:27)
[2024-03-14] MEDS: FUROsemide 10 mg/mL SDV 4mL 40 MG IVP ×2 (09:27→21:01)
--- NOTE | 2024-03-14 09:27 | CT_ITS ---
WS: [id number] CT CHEST TECHNIQUE: Noncontrast CT of the chest with coronal and sagittal reformatted images. CLINICAL INFORMATION: sob COMPARISON: CT 01/05/23 DLP: 250.[address] scans at [facility] use at least one of these dose optimization techniques: automated e xposure control; mA and/or kV adjustment per patient size (includes targeted exams where dose is matc hed to clinical indication); or iterative reconstruction. FINDINGS: Hyperinflation. Advanced chronic emphysematous changes. Small LEFT pleural effusion. Subtotal consoli dation LEFT lower lobe with air bronchograms. Recommend correlation for pneumonia. Patchy infiltrates in the LEFT lower lobe and lingula. Trace RIGHT pleural fluid with RIGHT basilar atelectasis. Cardiomegaly. Aortic calcification. Normal caliber thoracic aorta. Prominent main pulmonary arteries can be seen with pulmonary arterial hypertension. No mediastinal or hilar lymphadenopathy. No axillar y lymphadenopathy. Tiny esophageal hiatal hernia. Mild thoracic curve. Moderate thoracic kyphosis. CT/CT chest wo con [id number] IMPRESSION: 1. Hyperinflation with chronic emphysematous changes and bulla formation in th e upper lungs. 2. Small LEFT pleural effusion with subtotal consolidation LEFT lower lobe wit h air bronchograms. Recommend correlation for pneumonia. 3. Trace RIGHT pleural fluid with RIGHT basilar atelectasis. 4. A few patchy infiltrates in the LEFT lower lobe and lingula. 5. Enlarged main pulmonary arteries can be seen with pulmonary arterial hypert ension similar to previous. 6. Cardiomegaly.
[2024-03-14 11:54] LABS: C Reactive Protein 18.5 mg/L (0.0-4.9)
[2024-03-14 11:59] LABS: Procalcitonin 0.05 ng/mL (0-0.5)
--- NOTE | 2024-03-14 14:43 | P.PN_ITS ---
Subjective 2 Subjective: Patient was seen this morning, he is alert to person, not place, to time he tells me he lives at home with his , has been experiencing increased shortness of breath, shortness of breath with minimal exertion, increased lower extremity edema, no nausea, no vomiting, no abdominal pain does have a cough, no chest pain, no palpitations Vitals/I&O/Wt Last Vital Signs Temp 98.0 F 03/14/24 08:00 Pulse 100 03/14/24 12:00 Resp 25 H 03/14/24 12:00 BP 130/71 03/14/24 12:00 Pulse Ox 91 03/14/24 12:00 O2 Del Method Room Air 03/14/24 12:00 O2 Flow Rate 4 03/14/24 08:00 03/13/24 03/14/24 03/14/24 22:59 06:59 14:59 Output Total 200 / 200 300 / 500 2650 / 2650 Balance -200 / -200 -300 / -500 -2650 / -2650 Weight last 48 hrs Weight 65.771 kg Weight 65.771 kg Weight 65.771 kg Physical Exam 2 Const: COMMON NORMALS: no acute distress ORIENTATION/CONSCIOUSNESS: Yes awake, Yes oriented to person and Yes oriented to place; not oriented to time Resp: OTHER: Crackles and wheezing in all lung meredith nasal flaring, intercostal retractions, suprasternal retractions tachypnea, mild respiratory failure Cardio: COMMON NORMALS: regular rate, regular rhythm, S1 normal heart sound present and S2 normal heart sound present RATE: regular rate RHYTHM: r egular rhythm HEART SOUNDS: S1 normal heart sound present and S2 normal heart sound present GI: COMMON NORMALS: Normal to inspection, nondistended, normoactive bowel sounds present and non-tender Extremity: NARRATIVE EXTREMITY EXAM: 2+ pitting edema Neuro: SENSORIUM/ORIENTATION: Yes oriented to person, Yes oriented to place and No oriented to time Psych: COMMON NORMALS: mental status grossly normal Urinary Catheter Management: Coude: Cath Placed During This Visit: yes Urinary Catheter Date of Insertion: 03/14/24 Urinary Catheter Time of Insertion: 08:30 Data 03/13/24 18:30 03/14/24 04:39 A&P Assessment and plan (1) Congestive heart failure: Acute CHF exacerbation ? Anasarca, lower extreme edema, crackles on lung meredith ? Monitor I's and O's, fluid restrictions 1200 cc ? Lasix 40 IV twice daily 1 dose of metolazone this morning ? Repeat cardiac echo ? Monitor creatinine, monitor potassium (2) Old [place] (myocardial infarction): Patient reports history of 2 prior MIs, although the details are unclear from patient's reported history Patient had a stress test IMPRESSIONS 1. Medium sized partially reversible perfusion abnormality of moderate severity of mid to apical inferior, basal to mid inferolateral , apical septal, apical anterior and apical lateral long. There is improved tracer uptake in prone stress images. 2. This may represent old myocardial infarction with moderate per-infarct ischemia in right coronary artery and left anterior descending artery territory. However, specifity of this finding is low given findings on prone images. 3. Overall left ventricular systolic function is normal without regional wall motion abnormalities, LVEF=65%. 4. EKG portion of the study will be reported separately. Plan -No active chest pain complaints -Continue aspirin, statin -Serial EKGs, serial troponins, telemetry monitoring (3) Weakness: PT OT (4) Chronic obstructive pulmonary disease: COPD with chronic hypoxic respiratory failure (5) Obstructive sleep apnea: CPAP ordered (6) Pneumonia: CT of his chest shows patchy infiltrates in the left lower lobe and lingula, subtotal consolidation of left lower lobe ? Plan ? Rocephin ? Azithromycin - Monitor respiratory status closely (7) Acute hypoxic respiratory failure: Acute hypoxic respiratory failure, with mild respiratory failure -Likely secondary to CHF exacerbation, pneumonia -Will consider BiPAP patient clinical progress -DuoNeb, budesonide Plan DVT prophylaxis: Heparin Metabolic alkalosis, will consider acetazolamide Fall about a week ago has multiple bruises on his nasal bridge, above the right brow Attestations 2 Medical Necessity Statement*: Patient requires hospitalization for systolic CHF exacerbation requiring IV diuresis, pneumonia requiring IV antibiotics Diagnoses Congestive heart failure I50.9 Old [place] (myocardial infarction) I25.2 Weakness R53.1 Chronic obstructive pulmonary disease J44.9 Obstructive sleep apnea G47.33 Pneumonia J18.9 Acute hypoxic respiratory failure J96.01
[2024-03-14] MEDS: cefTRIAXone 1,000 mg SDV 1000 MG IVP (15:17)
[2024-03-14] MEDS: gabapentin 300 mg Capsule 600 MG PO ×2 (15:20→21:01)
[2024-03-14] MEDS: AZITHROMYCIN ADD-Vantage 500 MG in 0.9% NaCl ADD-Vantage 250 ML 250 MG IV (15:21)
[2024-03-14] MEDS: hydrocortisone 10 mg Tablet PO (16:56)
[2024-03-14] MEDS: atorvastatin 40 mg Tablet PO (21:01)
[2024-03-14] MEDS: trazodone 100 mg Tablet PO (21:01)
[2024-03-14] MEDS: sennosides 8.6 mg Tablet 17.2 MG PO (21:01)
[2024-03-15] VITALS (14 sets, daily range): BP systolic 101–133; BP diastolic 61–79; PULSE 67–120; RESP 14–28; TEMP 36.6–36.7; O2SAT 85–94
[2024-03-15] MEDS: enoxaparin 40 mg/0.4 mL Syringe SUBCUT ×2 (00:12→22:24)
[2024-03-15 03:52] LABS: Basophils # 0.1 10^3/uL (0.0-0.1); Basophils % 0.7 %; Eosinophils # 0.1 10^3/uL (0.0-0.8); Eosinophils % 0.9 %; Hematocrit 50.6 % (37-53); Lymphocytes # 1.7 10^3/uL (0.8-4.8); Lymphocytes % 16.5 %; Mean Corpuscular HGB Conc 31.4 g/dL (30-55); Mean Corpuscular Hemoglobin 29.5 pg (27-33); Mean Corpuscular Volume 93.9 fl (82-101); Monocytes # 1.1 10^3/uL (0.2-0.9); Monocytes % 10.6 %; Neutrophils # 7.19 10^3/uL (1.8-7.7); Neutrophils % 70.8 %; Nucleated Red Blood Cells % 0 %; Platelet Count 289 10^3/cmm (157-399); Red Blood Count 5.39 10^6/uL (3.85-5.65); White Blood Count 10.15 10^3/uL (3.29-11.43)
[2024-03-15] MEDS: ipratropium-albuterol 3 mL Neb INHALATION ×4 (04:10→20:45)
[2024-03-15 04:17] LABS: Alanine Aminotransferase 22 U/L (0-41); Alkaline Phosphatase 92 U/L (40-130); Anion Gap 4.4 (5-19); Aspartate Amino Transferase 18 U/L (0-40); Blood Urea Nitrogen 19 mg/dL (8-23); Calcium 8.9 mg/dL (8.5-10.5); Chloride 94 mmol/L (98-107); Creatinine Clr Calc Pharmacy 86.4183; Globulin 2.3 g/dL (1.3-4.6); Glomerular Filtration Rate 95.8 mL/min (90-130); Glucose 94 mg/dL (65-115); Magnesium 1.9 mg/dL (1.7-2.3); Osmolality Calculated 298 mOsm/kg (285-295); Phosphorus 4.3 mg/dL (2.5-4.5); Potassium 4.4 mmol/L (3.5-5.1); Sodium 143 mmol/L (136-145); Total Bilirubin 0.4 mg/dL (0.15-1.2); Total Protein 5.3 g/dL (6.6-8.7)
[2024-03-15 04:19] LABS: NT Pro B Type Natriuretic Pept 3906 pg/mL (0-125)
[2024-03-15 04:29] LABS: Carbon Dioxide 49 mmol/L (22-29)
--- NOTE | 2024-03-15 07:00 | XR_ITS ---
WS: [id number] XR chest 1V portable [id number] REASON FOR EXAM: sob FINDINGS: Mild tortuosity of the thoracic aorta and significant cardiomegaly. Compared to the previous examination of 03/13/2024, there is now obscuration of the left hemidiaphragm atic contour with blunting of the left costophrenic angle. The course reticular interstitial and groundglass opacities in the right lower and right mid lung fie lds have not improved. Severe changes of central lobar emphysema and bullous disease in the upper lungs. XR/XR chest 1V portable [id number] IMPRESSION: Lung consolidation and pleural effusion have developed in the left lower hemith orax compared to the previous examination.
[2024-03-15] MEDS: sertraline 100 mg Tablet 150 MG PO (08:15)
[2024-03-15] MEDS: aspirin 81 mg EC Tablet PO (08:15)
[2024-03-15] MEDS: FUROsemide 10 mg/mL SDV 4mL 40 MG IVP (08:15)
[2024-03-15] MEDS: potassium chloride ER 20 mEq Tablet PO ×2 (08:15→21:23)
[2024-03-15] MEDS: gabapentin 300 mg Capsule 600 MG PO ×3 (08:15→21:23)
[2024-03-15] MEDS: loratadine 10 mg Tablet PO (08:15)
[2024-03-15] MEDS: hydrocortisone 10 mg Tablet PO ×2 (08:16→17:22)
[2024-03-15] MEDS: budesonide 0.5 mg/2 mL Neb INHALATION ×2 (08:28→20:45)
--- NOTE | 2024-03-15 09:11 | PC.CHAP ---
Pastoral Care Encounter/Spiritual Assessment Type of Contact [] Declined hogshead dumper visit [] Patient/Family/Request visit [] Outpatient visit [] Follow-up visit [] Physician referral [] Code/Alert [] Routine visit [] Staff referral [] Actively dying [x] Patient sleeping [] Family support [] [] Out of room [] Palliative care [] [] Receiving care in room [] Pre-surgical visit [] Trauma [] Long length of stay [] ICU visit [] Other: Relational/Emotional Strength [] Patient feels connected with others/family/visitors/staff [] Distress [] Loneliness/isolation [] Abandonment Spirituality of Patient [] Person of [place] [] Attends Sikh of their [place] [] Believes in Prayer [] Reads Bible or Muslim materials [] There are Spiritual issues to be addressed Manager Estate Interventions [] Prayer [] Active listening [] Non-anxious presence [] Spiritual/emotional support [] Crisis/trauma care [] Spiritual counseling [] Bereavement support [] Provided bereavement packet [] Provided Bible/devotional materials [] Provided toy/stuffed animal, coloring book to patient or family member [] Provided Communion [] Anointing/[place] [] Salvation [] Completed spiritual assessment [] Other: Impact on Illness or Injury [] Angry [] Fearful [] Anxious [] Often cries [] Exhaustion [] Unable to work [] Unable to attend tenriism [] Unable to walk/stand [] Unable to read [] Unable to drive [] Unable to eat/drink [] Unable to sleep [] Unable to be with family [] Patient intubated [] Other: Summary Time spent with patient
[2024-03-15] MEDS: acetaZOLAMIDE 250 mg Tablet PO ×2 (10:20→21:23)
--- NOTE | 2024-03-15 13:33 | P.PN_ITS ---
Subjective 2 Subjective: Patient was seen this morning, he is alert oriented x 3, following all commands does report generalized weakness, no fevers, chills and shortness of breath is improving Vitals/I&O/Wt Last Vital Signs Temp 98.1 F 03/15/24 08:00 Pulse 105 H 03/15/24 13:28 Resp 20 H 03/15/24 13:28 BP 104/61 03/15/24 12:00 Pulse Ox 90 03/15/24 13:28 O2 Del Method Nasal Cannula 03/15/24 13:28 O2 Flow Rate 4 03/15/24 13:28 03/14/24 03/15/24 03/15/24 22:59 06:59 14:59 Intake Total 490 / 490 240 / 240 Output Total 3000 / 5650 2250 / 2250 Balance 490 / -2160 -3000 / -5160 -2009 / Weight last 48 hrs Weight 65.771 kg Weight 65.771 kg Weight 65.771 kg Weight 65.771 kg Physical Exam 2 Const: COMMON NORMALS: no acute distress and patient oriented x3 Resp: COMMON NORMALS: normal respiratory effort, No retractions and No use of accessory muscles AUSCULTATION: crackles Cardio: COMMON NORMALS: regular rate, regular rhythm, S1 normal heart sound present and S2 normal heart sound present RATE: regular rate RHYTHM: r egular rhythm HEART SOUNDS: S1 normal heart sound present and S2 normal heart sound present GI: COMMON NORMALS: Normal to inspection, nondistended, normoactive bowel sounds present and non-tender Extremity: COMMON NORMALS: no pedal edema Neuro: COMMON NORMALS: patient oriented x3 Psych: COMMON NORMALS: mental status grossly normal Urinary Catheter Management: Coude: Cath Placed During This Visit: yes Reason for Continuing Indwelling Catheter: Accurate Measurement of Urinary Output in Critically Ill Patients Urinary Catheter Date of Insertion: 03/14/24 Urinary Catheter Time of Insertion: 08:30 Data 03/15/24 03:35 03/15/24 03:35 A&P Assessment and plan (1) Congestive heart failure: Acute CHF exacerbation, systolic CHF ? Anasarca, lower extreme edema, crackles on lung meredith ? Monitor I's and O's, fluid restrictions 1200 cc ? -7 L so far ? Lasix 40 IV twice daily -Due to metabolic alkalosis from diuresis, start Diamox ? cardiac echo CONCLUSIONS Mild concentric left ventricular hypertrophy. Mild diffuse hypokinesia with an ejection fraction of 44%. Dilated right ventricle with diffuse hypokinesia and moderately depressed ejection fraction Trace aortic valve regurgitation. Mild tricuspid valve regurgitation. Mild pulmonary valve regurgitation. Estimated pulmonary artery peak systolic pressure 38 mmHg. There are some features of There is no pericardial effusion. There are no intracardiac masses. Compared to the study from 11/03/2023, there is drop in the ejection fraction of both right and left ventricle ? Monitor creatinine, monitor potassium (2) Old CT (myocardial infarction): Patient reports history of 2 prior MIs, although the details are unclear from patient's reported history Patient had a stress test IMPRESSIONS 1. Medium sized partially reversible perfusion abnormality of moderate severity of mid to apical inferior, basal to mid inferolateral , apical septal, apical anterior and apical lateral long. There is improved tracer uptake in prone stress images. 2. This may represent old myocardial infarction with moderate per-infarct ischemia in right coronary artery and left anterior descending artery territory. However, specifity of this finding is low given findings on prone images. 3. Overall left ventricular systolic function is normal without regional wall motion abnormalities, LVEF=65%. 4. EKG portion of the study will be reported separately. Plan -No active chest pain complaints -Continue aspirin, statin -Serial EKGs, serial troponins, telemetry monitoring ? Cardiology consulted for consideration of cardiac cath (3) Weakness: PT OT (4) Chronic obstructive pulmonary disease: COPD with chronic hypoxic respiratory failure (5) Obstructive sleep apnea: CPAP ordered (6) Pneumonia: CT of his chest shows patchy infiltrates in the left lower lobe and lingula, subtotal consolidation of left lower lobe ? Plan ? Rocephin ? Azithromycin - Monitor respiratory status closely (7) Acute hypoxic respiratory failure: Acute hypoxic respiratory failure, with mild respiratory failure -Likely secondary to CHF exacerbation, pneumonia -Will consider BiPAP patient clinical progress -DuoNeb, budesonide Plan DVT prophylaxis: Heparin Metabolic alkalosis, will consider acetazolamide Fall about a week ago has multiple bruises on his nasal bridge, above the right brow Plan for today spoke to cardiology, consulted for EF down to 44%, CHF exacerbation, shortness of breath, continue to diurese, Attestations 2 Medical Necessity Statement*: Patient requires hospitalization for acute systolic CHF exacerbation requiring IV diuresis, pneumonia, EF down to 44% Diagnoses Congestive heart failure I50.[address] (myocardial infarction) I25.2 Weakness R53.1 Chronic obstructive pulmonary disease J44.9 Obstructive sleep apnea G47.33 Pneumonia J18.9 Acute hypoxic respiratory failure J96.01
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
[2024-03-15] MEDS: cefTRIAXone 1,000 mg SDV 1000 MG IVP (14:54)
[2024-03-15] MEDS: AZITHROMYCIN ADD-Vantage 500 MG in 0.9% NaCl ADD-Vantage 250 ML 250 MG IV (14:55)
--- NOTE | 2024-03-15 21:11 | ECG_ITS ---
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1955 Requested By: Chapin Henriquez Order Number: [id number] Reading MD: JUAN FRANCISCO PETTY Measurements Intervals [place] Rate: 103 P: 53 VT: 178 QRS: 268 QRSD: 97 T: 71 QT: 326 QTc: 428 Interpretive Statements SINUS TACHYCARDIA WITH OCCASIONAL SUPRAVENTRICULAR PREMATURE COMPLEXES RIGHT AXIS DEVIATION [QRS AXIS > 100] PATTERN CONSISTENT WITH PULMONARY DISEASE INCOMPLETE RIGHT BUNDLE BRANCH BLOCK [90+ ms QRS DURATION, TERMINAL R IN V1/V2, 40+ ms S IN I/aVL/V4/V5/V6] INFERIOR MYOCARDIAL INFARCTION , PROBABLY OLD [40+ ms Q WAVE AND/OR ST/T ABNORMALITY IN II/aVF] Compared to ECG 03/13/2024 19:49:20 Right-axis deviation now present Incomplete right bundle-branch block now present Electronically Signed On 03-17-2024 23:34:05 BRICK CARRIER by JUAN FRANCISCO PETTY [email or web address]
[2024-03-15] MEDS: atorvastatin 40 mg Tablet PO (21:23)
[2024-03-15] MEDS: sennosides 8.6 mg Tablet 17.2 MG PO (21:23)
[2024-03-15] MEDS: trazodone 100 mg Tablet PO (21:24)
--- NOTE | 2024-03-15 21:30 | PC.NURSE ---
Spoke wtih regarding patient with complaints of chest pain after getting OOB to commode. The patient had removed his oxygen and felt SOB and started having 10/10 chest pain. Nursing obtained EKG. The patient was placed back on oxygen and as o2 SAT improved pain started to resolve. looked at EKG which was similar to previous EKG and said it looked like more respiratory related but did order medication for pain prn.
[2024-03-16] VITALS (17 sets, daily range): BP systolic 93–112; BP diastolic 57–67; PULSE 93–115; RESP 12–28; TEMP 36.9–37.1; O2SAT 89–96
[2024-03-16] MEDS: ipratropium-albuterol 3 mL Neb INHALATION ×4 (02:30→20:15)
[2024-03-16 04:53] LABS: Basophils # 0.1 10^3/uL (0.0-0.1); Basophils % 0.6 %; Eosinophils % 0.4 %; Hematocrit 47.4 % (37-53); Lymphocytes # 1.2 10^3/uL (0.8-4.8); Lymphocytes % 11.9 %; Mean Corpuscular Hemoglobin 28.9 pg (27-33); Mean Corpuscular Volume 93.3 fl (82-101); Monocytes % 9.6 %; Neutrophils # 7.74 10^3/uL (1.8-7.7); Neutrophils % 77.1 %; Nucleated Red Blood Cells % 0 %; Platelet Count 288 10^3/cmm (157-399); Red Blood Count 5.08 10^6/uL (3.85-5.65); Red Cell Distribution Width 14.9 % (12.1-15.1); White Blood Count 10.03 10^3/uL (3.29-11.43)
[2024-03-16 05:26] LABS: Alanine Aminotransferase 18 U/L (0-41); Alkaline Phosphatase 83 U/L (40-130); Anion Gap 9.1 (5-19); Aspartate Amino Transferase 14 U/L (0-40); Blood Urea Nitrogen 15 mg/dL (8-23); Calcium 8.7 mg/dL (8.5-10.5); Carbon Dioxide 39 mmol/L (22-29); Chloride 94 mmol/L (98-107); Creatinine Clr Calc Pharmacy 86.4183; Globulin 2.5 g/dL (1.3-4.6); Glomerular Filtration Rate 111.8 mL/min (90-130); Glucose 92 mg/dL (65-115); Magnesium 1.7 mg/dL (1.7-2.3); Osmolality Calculated 286 mOsm/kg (285-295); Potassium 4.1 mmol/L (3.5-5.1); Sodium 138 mmol/L (136-145); Total Bilirubin 0.3 mg/dL (0.15-1.2); Total Protein 5.5 g/dL (6.6-8.7)
[2024-03-16 05:27] LABS: NT Pro B Type Natriuretic Pept 2500 pg/mL (0-125)
[2024-03-16] MEDS: gabapentin 300 mg Capsule 600 MG PO ×3 (08:04→19:22)
[2024-03-16] MEDS: acetaZOLAMIDE 250 mg Tablet PO (08:04)
[2024-03-16] MEDS: potassium chloride ER 20 mEq Tablet PO ×2 (08:04→15:44)
[2024-03-16] MEDS: sertraline 100 mg Tablet 150 MG PO (08:04)
[2024-03-16] MEDS: hydrocortisone 10 mg Tablet PO ×2 (08:04→15:44)
[2024-03-16] MEDS: loratadine 10 mg Tablet PO (08:04)
[2024-03-16] MEDS: aspirin 81 mg EC Tablet PO (08:04)
[2024-03-16] MEDS: budesonide 0.5 mg/2 mL Neb INHALATION ×2 (08:57→20:15)
--- NOTE | 2024-03-16 11:06 | P.PN_ITS ---
<Statement entered by María Mendosa MD - 03/16/24 23:21> Patient was evaluated and cared for in conjunction with an advanced practice practitioner. I personally examined the patient and reviewed the chart and all pertinent data including imaging, telemetry, and laboratory results. I discussed the patient in detail with the advanced practice practitioner. Please see their note for complete H&P testing result and agreed upon plan of care for the patient. Patient appeared to be confused GENERAL: Confused and fatigued HEART: Regular S1 and S2. 1/6 murmur, rub or gallop. LUNGS: Decreased breath sound but no crepitation bilaterally. CENTRAL NERVOUS SYSTEM: Grossly nonfocal. EXTREMITIES: Lower extremities with out edema bilaterally. Confusion with mental status change Acute on chronic respiratory failure now hypercapnia Acute decompensated systolic heart failure Chest pain Moderately depressed left ventricular ejection fraction 45% Will back off on IV Lasix Continue to monitor closely Treatment of hypercapnic respiratory failure by medicine Subjective 2 Subjective: He is feeling much better this morning, over 5 L negative BNP 2500 today (decreased from 3906 yesterday) BUN 15 creatinine 0.7 CBC unremarkable. Plan for left heart cath in 1 to 2 days to further assess cardiomyopathy. No chest pain today. Vitals/I&O/Wt Last Vital Signs Temp 98.4 F 03/16/24 07:49 Pulse 99 03/16/24 08:58 Resp 18 03/16/24 08:58 BP 111/67 03/16/24 07:49 Pulse Ox 89 L 03/16/24 08:58 O2 Del Method Nasal Cannula 03/16/24 08:58 O2 Flow Rate 5 03/16/24 08:58 FiO2 50 03/16/24 02:42 03/15/24 03/16/24 03/16/24 22:59 06:59 14:59 Intake Total 570 / 810 240 / 240 Output Total 1950 / 6600 2400 / 6600 Balance -1380 / -5790 -2400 / -5790 240 / 240 Weight last 48 hrs Weight 145 lb Weight 145 lb Physical Exam 2 Const: COMMON NORMALS: no acute distress and patient oriented x3 GENERAL APPEARANCE: cooperative and comfortable ORIENTATION/CONSCIOUSNESS: Yes awake, Yes oriented to person, Yes oriented to place and Yes oriented to time Chest: COMMONS NORMALS: normal inspection of the chest and normal palpation of entire chest wall CHEST: Yes Symmetrical chest wall rise Resp: COMMON NORMALS: normal respiratory effort, No retractions, No use of accessory muscles and clear to auscultation bilaterally EFFORT & INSPECTION: Yes symmetric chest movement AUSCULTATION: clear to auscultation bilaterally Cardio: COMMON NORMALS: regular rate, regular rhythm, S1 normal heart sound present, S2 normal heart sound present, No gallops present (Cardio), No clicks present (Cardio), No murmurs present (Cardio) and No rub (Cardio) RATE: r egular rate RHYTHM: regular rhythm HEART SOUNDS: S1 normal heart sound present and S2 normal heart sound present PERIPHERAL PULSES: radial pulses present Extremity: COMMON NORMALS: no pedal edema Neuro: COMMON NORMALS: patient oriented x3 and moves all extremities S ENSORIUM/ORIENTATION: Yes oriented to person, Yes oriented to place and Yes oriented to time Urinary Catheter Management: Coude: Cath Placed During This Visit: yes Reason for Continuing Indwelling Catheter: Acute Urinary Retention or Obstruction Urinary Catheter Date of Insertion: 03/14/24 Urinary Catheter Time of Insertion: 08:30 Data 03/16/24 04:31 03/16/24 04:31 A&P Assessment and plan (1) Congestive heart failure: He is over 5 L negative, BNP still elevated. Continue IV diuresis, he may need 1-2 more days before he can safely undergo coronary angiogram to evaluate for ischemic cardiomyopathy. He is on acetazolamide 250 mg twice daily, Lasix currently on hold. Qualifiers: Heart failure type: biventricular Qualified Code(s): I50.82 - Biventricular heart failure (2) Abnormal cardiovascular stress test: (3) Paraplegia: Attestations 2 Medical Necessity Statement*: Needing continued IV diuresis, plan for coronary angiogram due to heart failure Coding Level of Care Code Acute Code for [facility] Fwd Diagnoses Biventricular congestive heart failure I50.82 Heart failure type: biventricular Abnormal cardiovascular stress test R94.39 Paraplegia G82.20
--- NOTE | 2024-03-16 13:28 | P.PN_ITS ---
Vitals/I&O/Wt Last Vital Signs Temp 98.6 F 03/16/24 12:00 Pulse 99 03/16/24 12:00 Resp 24 H 03/16/24 12:00 BP 111/57 03/16/24 12:00 Pulse Ox 89 L 03/16/24 12:00 O2 Del Method Nasal Cannula 03/16/24 12:00 O2 Flow Rate 5 03/16/24 12:00 FiO2 50 03/16/24 02:42 03/15/24 03/16/24 03/16/24 22:59 06:59 14:59 Intake Total 570 / 810 600 / 600 Output Total 1950 / 4200 2400 / 6600 950 / 950 Balance -1380 / -3390 -2400 / -5790 -350 / -350 Weight last 48 hrs Weight 65.771 kg Weight 65.771 kg Physical Exam 2 Const: COMMON NORMALS: no acute distress and patient oriented x3 Resp: COMMON NORMALS: normal respiratory effort, No retractions, No use of accessory muscles and clear to auscultation bilaterally AUSCULTATION: clear to auscultation bilaterally Cardio: COMMON NORMALS: regular rate, regular rhythm, S1 normal heart sound present and S2 normal heart sound present RATE: regular rate RHYTHM: r egular rhythm HEART SOUNDS: S1 normal heart sound present and S2 normal heart sound present GI: COMMON NORMALS: Normal to inspection, nondistended, normoactive bowel sounds present Extremity: COMMON NORMALS: no pedal edema Neuro: COMMON NORMALS: patient oriented x3 Psych: COMMON NORMALS: mental status grossly normal Urinary Catheter Management: Coude: Cath Placed During This Visit: yes Reason for Continuing Indwelling Catheter: Acute Urinary Retention or Obstruction Urinary Catheter Date of Insertion: 03/14/24 Urinary Catheter Time of Insertion: 08:30 Data 03/16/24 04:31 03/16/24 04:31 A&P Assessment and plan (1) Congestive heart failure: Acute CHF exacerbation, systolic CHF ? Anasarca, lower extreme edema, crackles on lung meredith ? Monitor I's and O's, fluid restrictions 1200 cc ? -11.8 L so far ? Lasix 40 IV daily on hold -Due to metabolic alkalosis from diuresis, start Diamox for today ? cardiac echo CONCLUSIONS Mild concentric left ventricular hypertrophy. Mild diffuse hypokinesia with an ejection fraction of 44%. Dilated right ventricle with diffuse hypokinesia and moderately depressed ejection fraction Trace aortic valve regurgitation. Mild tricuspid valve regurgitation. Mild pulmonary valve regurgitation. Estimated pulmonary artery peak systolic pressure 38 mmHg. There are some features of There is no pericardial effusion. There are no intracardiac masses. Compared to the study from 11/03/2023, there is drop in the ejection fraction of both right and left ventricle ? 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 Medium sized partially reversible perfusion abnormality of moderate severity of mid to apical inferior, basal to mid inferolateral , apical septal, apical anterior and apical lateral long. There is improved tracer uptake in prone stress images. 2. This may represent old myocardial infarction with moderate per-infarct ischemia in right coronary artery and left anterior descending artery territory. However, specifity of this finding is low given findings on prone images. 3. Overall left ventricular systolic function is normal without regional wall motion abnormalities, LVEF=65%. 4. EKG portion of the study will be reported separately. Plan -No active chest pain complaints -Continue aspirin, statin -Serial EKGs, serial troponins, telemetry monitoring ? Cardiology consulted for consideration of cardiac cath (3) Weakness: PT OT (4) Chronic obstructive pulmonary disease: COPD with chronic hypoxic respiratory failure (5) Obstructive sleep apnea: CPAP ordered (6) Pneumonia: CT of his chest shows patchy infiltrates in the left lower lobe and lingula, subtotal consolidation of left lower lobe ? Plan ? Rocephin ? Azithromycin - Monitor respiratory status closely (7) Acute hypoxic respiratory failure: Acute hypoxic respiratory failure, with mild respiratory failure -Likely secondary to CHF exacerbation, pneumonia -Will consider BiPAP patient clinical progress -DuoNeb, budesonide Plan DVT prophylaxis: Heparin Metabolic alkalosis, will consider acetazolamide Fall about a week ago has multiple bruises on his nasal bridge, above the right brow Plan for today IV diuresis, monitor heart rate continue IV antibiotics, plans for possible cardiac cath Attestations 2 Medical Necessity Statement*: Patient requires hospitalization for CHF exacerbation, pneumonia, NSTEMI Diagnoses Biventricular congestive heart failure I50.82 Heart failure type: biventricular Old ME (myocardial infarction) I25.2 Weakness R53.1 Chronic obstructive pulmonary disease J44.9 Obstructive sleep apnea G47.33 Pneumonia J18.9 Acute hypoxic respiratory failure J96.01
[2024-03-16] MEDS: cefTRIAXone 1,000 mg SDV 1000 MG IVP (15:44)
[2024-03-16] MEDS: azithromycin 250 mg Tablet PO (15:44)
[2024-03-16] MEDS: FUROsemide 10 mg/mL SDV 4mL 40 MG IVP (15:45)
--- NOTE | 2024-03-16 16:37 | PC.NURSE ---
This patient is becoming more confused. Has been getting out of bed and walking to the bathroom. He walk just fine short distances however he is very shaky/tremors. Informed Dr Henriquez and received order for ABG stat
[2024-03-16] MEDS: haloperidol inj 5 mg/mL INJ 1 mL 1 MG IM (17:09)
[2024-03-16 17:12] LABS: ABG PH Result 7.31 (7.35-7.45); Arterial Blood Gas Hematocrit 50.6 % (42-52); Base Excess ABG 9.4 mmol/L (-2.0-2.0); Blood Gas Operator Identificat AMH; Blood Gas Sample Site Brachial, left; Blood Gas Sample Type Arterial; Carboxyhemoglobin 1.5 %THgb (0.4-20.1); HCO3 ABG 39.9 mmol/L (22-26); HGB O2 Sat 91.5 % (95-100); Ionized Calcium Level - ABG 1.2 mmol/L (1.1-1.4); Methemoglobin 0.8 % (0.4-1.5); Oxygen Device NC; Oxygen Saturation ABG 93.7; PO2 ABG 70.9 mmHg (80.0-100.0); Potassium Level - ABG 3.8 mmol/L (3.5-5.0); Total Hemoglobin 16.5 g/dL (14-18)
[2024-03-16 17:14] LABS: ABG PCO2 80.2 mmHg (35-45)
--- NOTE | 2024-03-16 17:22 | PC.NURSE ---
Patient becoming more confused. He is up/down from the bed, has pulled his strickland catheter apart and is becoming more shaky. Informed Dr Henriquez. Dr Henriquez placed order for Haldol 1mg IM every 4 hours. First dose have been given. Also placed order for ABG which has been drawn. Will continue to monitor.
[2024-03-16] MEDS: LORazepam 2 mg/mL INJ 1 mL 1 MG IVP (17:44)
--- NOTE | 2024-03-16 17:55 | PC.NURSE ---
Received order from Dr Henriquez for Ativan 1mg IVP onetime. Will attempt to get patient to wear bipap this evening.
--- NOTE | 2024-03-16 18:25 | ECG_ITS ---
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[id number] Requested By: María Mendosa Order Number: [id number] Reading MD: MARÍA MENDOSA Measurements Intervals [place] Rate: 103 P: 55 AL: 175 QRS: 268 QRSD: 106 T: 83 QT: 330 QTc: 434 Interpretive Statements SINUS TACHYCARDIA RIGHT AXIS DEVIATION [QRS AXIS > 100] PATTERN CONSISTENT WITH PULMONARY DISEASE INCOMPLETE RIGHT BUNDLE BRANCH BLOCK [90+ ms QRS DURATION, TERMINAL R IN V1/V2, 40+ ms S IN I/aVL/V4/V5/V6] ST DEVIATION AND MODERATE T-WAVE ABNORMALITY, CONSIDER LATERAL ISCHEMIA [-0.1+ mV T-WAVE IN I/aVL/V5/V6] Compared to ECG 03/15/2024 21:16:39 T-wave abnormality now present Possible ischemia now present Myocardial infarct finding no longer present Electronically Signed On 03-17-2024 23:23:00 ACCOUNT UNDERWRITER by MARÍA MENDOSA [email or web address]
[2024-03-16] MEDS: trazodone 100 mg Tablet PO (19:22)
[2024-03-16] MEDS: atorvastatin 40 mg Tablet PO (19:22)
[2024-03-16] MEDS: sennosides 8.6 mg Tablet 17.2 MG PO (19:22)
[2024-03-16] MEDS: enoxaparin 40 mg/0.4 mL Syringe SUBCUT (23:10)
[2024-03-17] VITALS (18 sets, daily range): BP systolic 91–125; BP diastolic 57–66; PULSE 89–120; RESP 14–24; TEMP 36.2–37.1; O2SAT 90–95
[2024-03-17] MEDS: ipratropium-albuterol 3 mL Neb INHALATION ×4 (03:44→19:18)
[2024-03-17 06:07] LABS: Basophils # 0.1 10^3/uL (0.0-0.1); Basophils % 0.9 %; Eosinophils # 0.1 10^3/uL (0.0-0.8); Lymphocytes # 1.4 10^3/uL (0.8-4.8); Lymphocytes % 17.1 %; Mean Corpuscular HGB Conc 31.1 g/dL (30-55); Mean Corpuscular Hemoglobin 29.6 pg (27-33); Mean Corpuscular Volume 95.2 fl (82-101); Mean Platelet Volume 10.1 fL (7.4-10.4); Monocytes # 0.8 10^3/uL (0.2-0.9); Monocytes % 10.3 %; Neutrophils # 5.75 10^3/uL (1.8-7.7); Neutrophils % 70.3 %; Nucleated Red Blood Cells % 0 %; Platelet Count 269 10^3/cmm (157-399); Red Blood Count 4.83 10^6/uL (3.85-5.65); Red Cell Distribution Width 14.9 % (12.1-15.1); White Blood Count 8.17 10^3/uL (3.29-11.43)
[2024-03-17 06:23] LABS: Alanine Aminotransferase 16 U/L (0-41); Albumin Level 2.9 g/dL (3.5-5.2); Alkaline Phosphatase 73 U/L (40-130); Anion Gap 8.9 (5-19); Aspartate Amino Transferase 15 U/L (0-40); Blood Urea Nitrogen 19 mg/dL (8-23); Calcium 8.9 mg/dL (8.5-10.5); Carbon Dioxide 38 mmol/L (22-29); Chloride 96 mmol/L (98-107); Creatinine Clr Calc Pharmacy 68.8269; Globulin 2.4 g/dL (1.3-4.6); Glomerular Filtration Rate 133.6 mL/min (90-130); Glucose 89 mg/dL (65-115); Magnesium 1.8 mg/dL (1.7-2.3); Osmolality Calculated 290 mOsm/kg (285-295); Phosphorus 3.1 mg/dL (2.5-4.5); Potassium 3.9 mmol/L (3.5-5.1); Sodium 139 mmol/L (136-145); Total Bilirubin 0.2 mg/dL (0.15-1.2); Total Protein 5.3 g/dL (6.6-8.7)
[2024-03-17 06:33] LABS: NT Pro B Type Natriuretic Pept 1676 pg/mL (0-125)
[2024-03-17] MEDS: budesonide 0.5 mg/2 mL Neb INHALATION ×2 (07:51→19:18)
[2024-03-17 08:42] LABS: ABG PH Result 7.34 (7.35-7.45); Arterial Blood Gas Hematocrit 47.2 % (42-52); Base Excess ABG 10.8 mmol/L (-2.0-2.0); Blood Gas Allen Test Pos; Blood Gas Operator Identificat MONRO; Blood Gas Sample Site Brachial, right; Blood Gas Sample Type Arterial; HCO3 ABG 40.4 mmol/L (22-26); Oxygen Device BIPAP; PO2 ABG 59.9 mmHg (80.0-100.0); PO2 FiO2 Ratio Arterial Blood 119
[2024-03-17] MEDS: aspirin 81 mg EC Tablet PO (08:47)
[2024-03-17] MEDS: hydrocortisone 10 mg Tablet PO ×2 (08:48→17:21)
[2024-03-17] MEDS: loratadine 10 mg Tablet PO (08:48)
[2024-03-17] MEDS: gabapentin 300 mg Capsule 600 MG PO ×3 (08:48→20:23)
[2024-03-17] MEDS: sertraline 100 mg Tablet 150 MG PO (08:48)
[2024-03-17] MEDS: potassium chloride ER 20 mEq Tablet 40 MEQ PO (08:48)
[2024-03-17] MEDS: FUROsemide 10 mg/mL SDV 4mL 40 MG IVP (08:48)
--- NOTE | 2024-03-17 11:03 | PC.SOCIAL ---
IMM Updated Updated pt on IMM. No questions voiced. Provided pt a copy. Initialed, dated, & timed a copy & placed in chart.
--- NOTE | 2024-03-17 13:04 | PC.NURSE ---
BIPAP applied back on. Educated pt and family about the benefits of using his bipap. pt agreed to apply it.
[2024-03-17] MEDS: cefTRIAXone 1,000 mg SDV 1000 MG IVP (13:48)
--- NOTE | 2024-03-17 13:53 | P.PN_ITS ---
Subjective 2 Subjective: Patient seen this morning. He is more alert while on BiPAP. He denies any chest pain or pressure currently. Blood pressure has been soft in the 90-110 systolic range. He is 950 negative today, has Lasix ordered by the hospitalist, [facility] this morning 1676, down from 2500 yesterday. He still requires some diuresis before left heart cath can be performed to evaluate decreased LVE, however close to euvolemia. Vitals/I&O/Wt Last Vital Signs Temp 98.0 F 03/17/24 11:52 Pulse 101 H 03/17/24 13:31 Resp 15 03/17/24 13:30 BP 103/59 03/17/24 11:52 Pulse Ox 95 03/17/24 13:31 O2 Del Method BiPAP 03/17/24 13:30 O2 Flow Rate 6 03/16/24 20:15 FiO2 50 03/17/24 13:31 03/16/24 03/17/24 03/17/24 22:59 06:59 14:59 Intake Total 400 / 1200 200 / 1200 60 / 60 Output Total 800 / 2150 400 / 2150 1500 / 1500 Balance -400 / -950 -200 / -950 -1440 / -1440 Weight last 48 hrs Weight 123 lb 1.6 oz Weight 145 lb Physical Exam 2 Const: COMMON NORMALS: no acute distress and patient oriented x3 GENERAL APPEARANCE: cooperative and comfortable ORIENTATION/CONSCIOUSNESS: Yes awake, Yes oriented to person, Yes oriented to place and Yes oriented to time Chest: COMMONS NORMALS: normal inspection of the chest and normal palpation of entire chest wall CHEST: Yes Symmetrical chest wall rise Resp: COMMON NORMALS: normal respiratory effort, No retractions and No use of accessory muscles EFFORT & INSPECTION: Yes symmetric chest movement A USCULTATION: crackles Laterality: bilateral and posterior Cardio: COMMON NORMALS: regular rate, regular rhythm, S1 normal heart sound present, S2 normal heart sound present, No gallops present (Cardio), No clicks present (Cardio), No murmurs present (Cardio) and No rub (Cardio) RATE: r egular rate RHYTHM: regular rhythm HEART SOUNDS: S1 normal heart sound present and S2 normal heart sound present PERIPHERAL PULSES: radial pulses present Extremity: COMMON NORMALS: no pedal edema Neuro: COMMON NORMALS: patient oriented x3 and moves all extremities S ENSORIUM/ORIENTATION: Yes oriented to person, Yes oriented to place and Yes oriented to time Urinary Catheter Management: Coude: Cath Placed During This Visit: yes Reason for Continuing Indwelling Catheter: Accurate Measurement of Urinary Output in Critically Ill Patients Urinary Catheter Date of Insertion: 03/14/24 Urinary Catheter Time of Insertion: 08:30 Data 03/17/24 05:31 03/17/24 05:31 A&P Assessment and plan (1) Congestive heart failure: He has had significant diuresis, 13 L negative now. He appears close to euvolemia. There is concern if he will be able to tolerate lying supine for the coronary angiogram. His mental status is much better than yesterday. In discussion with nursing staff he has been on and off BiPAP through the day, only requiring about 30 minutes at a time. This is a significant improvement from overnight. Will reevaluate later today to determine if he will have heart cath tomorrow. Qualifiers: Heart failure type: biventricular Qualified Code(s): I50.82 - Biventricular heart failure (2) Abnormal cardiovascular stress test: (3) Chronic obstructive pulmonary disease: (4) Hypercapnic respiratory failure: Attestations 2 Medical Necessity Statement*: Requires further diuresis for new onset heart failure, ischemic workup for LV dysfunction Coding Level of Care Code Acute Code for [facility] Fwd Diagnoses Biventricular congestive heart failure I50.82 Heart failure type: biventricular Abnormal cardiovascular stress test R94.39 Chronic obstructive pulmonary disease J44.9 Hypercapnic respiratory failure J96.92
--- NOTE | 2024-03-17 13:56 | P.PN_ITS ---
Subjective 2 Subjective: Patient was seen this morning, overnight he had episodes of confusion, agitation likely hypercarbic respiratory failure, as pCO2 was elevated 80.2, was given Ativan, Haldol to help with his confusion, to let him rest comfortably on the BiPAP he did use a BiPAP throughout the night he is on BiPAP this morning he is alert to person, to place not to time he will follows all commands. I discussed his hypercarbic respiratory failure likely secondary underlying COPD, given his persistent hypercarbia currently 75 he will likely require BiPAP as outpatient will try an overnight pulse ox, but he likely has chronic hypercarbic respiratory failure from COPD. He reports fatigue, malaise, episodes of confusion this is likely from the chronic hypercarbia. Discussed compliance with BiPAP machine, we can try benzodiazepines to help with the agitation and anxiety, he voiced understanding, all questions answered. Advised to continue diuresis -Also spoke to patient's over the p elli, discussed patient's acute hypoxic hypercarbic respiratory failure secondary CHF diuresed over 16 L negative, pneumonia, now with hypercarbic respiratory failure likely sec to COPD likely require BiPAP, with his elevated troponins, decision will be made about when and if to proceed with coronary angiography with his diminished ejection fraction Vitals/I&O/Wt Last Vital Signs Temp 98.0 F 03/17/24 11:52 Pulse 101 H 03/17/24 13:31 Resp 15 03/17/24 13:30 BP 103/59 03/17/24 11:52 Pulse Ox 95 03/17/24 13:31 O2 Del Method BiPAP 03/17/24 13:30 O2 Flow Rate 6 03/16/24 20:15 FiO2 50 03/17/24 13:31 03/16/24 03/17/24 03/17/24 22:59 06:59 14:59 Intake Total 400 / 1000 200 / 1200 60 / 60 Output Total 800 / 1750 400 / 2150 1500 / 1500 Balance -400 / -750 -200 / -950 -1440 / -1440 Weight last 48 hrs Weight 55.837 kg Weight 65.771 kg Physical Exam 2 Const: COMMON NORMALS: no acute distress and patient oriented x3 Resp: COMMON NORMALS: normal respiratory effort, No retractions and No use of accessory muscles AUSCULTATION: crackles and wheezes Cardio: COMMON NORMALS: regular rate, regular rhythm, S1 normal heart sound present and S2 normal heart sound present RATE: regular rate RHYTHM: r egular rhythm HEART SOUNDS: S1 normal heart sound present and S2 normal heart sound present GI: COMMON NORMALS: Normal to inspection, nondistended, normoactive bowel sounds present and non-tender Extremity: COMMON NORMALS: no pedal edema Neuro: COMMON NORMALS: patient oriented x3 Psych: COMMON NORMALS: mental status grossly normal Urinary Catheter Management: Coude: Cath Placed During This Visit: yes Reason for Continuing Indwelling Catheter: Accurate Measurement of Urinary Output in Critically Ill Patients Urinary Catheter Date of Insertion: 03/14/24 Urinary Catheter Time of Insertion: 08:30 Data 03/17/24 05:31 03/17/24 05:31 A&P Assessment and plan (1) Congestive heart failure: Acute CHF exacerbation, systolic CHF ? Anasarca, lower extreme edema, crackles on lung meredith ? Monitor I's and O's, fluid restrictions 1200 cc ? -16 L so far ? Lasix 40 IV daily -Due to metabolic alkalosis from diuresis, start Diamox for today ? cardiac echo CONCLUSIONS Mild concentric left ventricular hypertrophy. Mild diffuse hypokinesia with an ejection fraction of 44%. Dilated right ventricle with diffuse hypokinesia and moderately depressed ejection fraction Trace aortic valve regurgitation. Mild tricuspid valve regurgitation. Mild pulmonary valve regurgitation. Estimated pulmonary artery peak systolic pressure 38 mmHg. There are some features of There is no pericardial effusion. There are no intracardiac masses. Compared to the study from 11/03/2023, there is drop in the ejection fraction of both right and left ventricle ? 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 Medium sized partially reversible perfusion abnormality of moderate severity of mid to apical inferior, basal to mid inferolateral , apical septal, apical anterior and apical lateral long. There is improved tracer uptake in prone stress images. 2. This may represent old myocardial infarction with moderate per-infarct ischemia in right coronary artery and left anterior descending artery territory. However, specifity of this finding is low given findings on prone images. 3. Overall left ventricular systolic function is normal without regional wall motion abnormalities, LVEF=65%. 4. EKG portion of the study will be reported separately. Plan -No active chest pain complaints -Continue aspirin, statin -Serial EKGs, serial troponins, telemetry monitoring ? Cardiology consulted for consideration of cardiac cath (3) Weakness: PT OT (4) Chronic obstructive pulmonary disease: COPD with chronic hypoxic respiratory failure (5) Obstructive sleep apnea: CPAP ordered (6) Pneumonia: CT of his chest shows patchy infiltrates in the left lower lobe and lingula, subtotal consolidation of left lower lobe ? Plan ? Rocephin ? Azithromycin - Monitor respiratory status closely (7) Acute hypoxic respiratory failure: Acute hypoxic hypercarbic respiratory failure -Likely secondary to CHF exacerbation, pneumonia, COPD -He is to be compliant with BiPAP, as needed during the day scheduled during the night -Patient would clinically benefit from BiPAP at home at home, will order an overnight pulse ox -DuoNeb, budesonide (8) Hypercapnic respiratory failure: Plan DVT prophylaxis: Heparin Metabolic alkalosis, will consider acetazolamide Fall about a week ago has multiple bruises on his nasal bridge, above the right brow Plan for today IV diuresis, monitor heart rate continue IV antibiotics, plans for possible cardiac cath Attestations 2 Medical Necessity Statement*: Patient requires hospitalization for CHF exacerbation, acute on chronic hypercarbic respiratory failure, NSTEMI, pneumonia Diagnoses Biventricular congestive heart failure I50.82 Heart failure type: biventricular Old [place] (myocardial infarction) I25.2 Weakness R53.1 Chronic obstructive pulmonary disease J44.9 Obstructive sleep apnea G47.33 Pneumonia J18.9 Acute hypoxic respiratory failure J96.01 Hypercapnic respiratory failure J96.92
[2024-03-17] MEDS: azithromycin 250 mg Tablet PO (17:21)
--- NOTE | 2024-03-17 18:00 | PC.NURSE ---
pt started to get anxious,restless Notified Dr Henriquez and received telephone order to give ativan 1 mg ivp now. Bed alarm set.
[2024-03-17] MEDS: LORazepam 2 mg/mL INJ 1 mL 1 MG IVP (18:32)
[2024-03-17] MEDS: atorvastatin 40 mg Tablet PO (20:23)
[2024-03-17] MEDS: trazodone 100 mg Tablet PO (20:23)
[2024-03-17] MEDS: sennosides 8.6 mg Tablet 17.2 MG PO (20:23)
[2024-03-17] MEDS: haloperidol inj 5 mg/mL INJ 1 mL 1 MG IM (20:49)
--- NOTE | 2024-03-17 21:15 | PC.RESP ---
overnight pulse ox stated on patient at 2106. Patient stated overnight on bipap due to sats 85% on 6lpm NC.
--- NOTE | 2024-03-17 21:56 | PC.RESP ---
patient off bipap and up to bedside commode @ [id number]. Sats dropped to 81%, changed patient to 10lpm HFNC sats increased to 90%.
[2024-03-17] MEDS: enoxaparin 40 mg/0.4 mL Syringe SUBCUT (22:26)
[2024-03-18] VITALS (16 sets, daily range): BP systolic 91–116; BP diastolic 49–66; PULSE 91–113; RESP 14–28; TEMP 36.4–36.8; O2SAT 89–95
[2024-03-18] MEDS: ipratropium-albuterol 3 mL Neb INHALATION ×4 (02:50→19:31)
[2024-03-18 05:20] LABS: Basophils # 0.1 10^3/uL (0.0-0.1); Basophils % 1.2 %; Eosinophils # 0.1 10^3/uL (0.0-0.8); Hematocrit 47.7 % (37-53); Lymphocytes # 1.5 10^3/uL (0.8-4.8); Lymphocytes % 18.2 %; Mean Corpuscular HGB Conc 30.8 g/dL (30-55); Mean Corpuscular Hemoglobin 29.5 pg (27-33); Mean Corpuscular Volume 95.8 fl (82-101); Mean Platelet Volume 9.6 fL (7.4-10.4); Monocytes # 0.7 10^3/uL (0.2-0.9); Monocytes % 8.6 %; Neutrophils # 5.86 10^3/uL (1.8-7.7); Neutrophils % 70.9 %; Nucleated Red Blood Cells % 0 %; Platelet Count 257 10^3/cmm (157-399); Red Blood Count 4.98 10^6/uL (3.85-5.65); Red Cell Distribution Width 14.7 % (12.1-15.1); White Blood Count 8.26 10^3/uL (3.29-11.43)
[2024-03-18 05:41] LABS: Magnesium 1.7 mg/dL (1.7-2.3)
[2024-03-18 05:50] LABS: Blood Urea Nitrogen 15 mg/dL (8-23); Calcium 8.6 mg/dL (8.5-10.5); Carbon Dioxide 35 mmol/L (22-29); Chloride 98 mmol/L (98-107); Creatinine Clr Calc Pharmacy 67.3736; Glomerular Filtration Rate 164.9 mL/min (90-130); Glucose 80 mg/dL (65-115); NT Pro B Type Natriuretic Pept 1038 pg/mL (0-125); Osmolality Calculated 288 mOsm/kg (285-295); Sodium 139 mmol/L (136-145)
[2024-03-18 05:52] LABS: Anion Gap 10.5 (5-19); Potassium 4.5 mmol/L (3.5-5.1)
[2024-03-18] MEDS: budesonide 0.5 mg/2 mL Neb INHALATION ×2 (07:29→19:31)
[2024-03-18] MEDS: potassium chloride ER 20 mEq Tablet 40 MEQ PO (09:48)
[2024-03-18] MEDS: aspirin 81 mg EC Tablet PO (09:48)
[2024-03-18] MEDS: FUROsemide 10 mg/mL SDV 4mL 40 MG IVP (09:48)
[2024-03-18] MEDS: hydrocortisone 10 mg Tablet PO ×2 (09:48→18:23)
[2024-03-18] MEDS: gabapentin 300 mg Capsule 600 MG PO ×3 (09:49→21:00)
[2024-03-18] MEDS: loratadine 10 mg Tablet PO (09:49)
[2024-03-18] MEDS: sertraline 100 mg Tablet 150 MG PO (09:49)
--- NOTE | 2024-03-18 10:53 | PC.CHAP ---
Pastoral Care Encounter/Spiritual Assessment Type of Contact [] Declined thermodynamics teacher visit [] Patient/Family/Request visit [] Outpatient visit [] Follow-up visit [] Physician referral [] Code/Alert [] Routine visit [] Staff referral [] Actively dying [] Patient sleeping [] Family support [] [] Out of room [x] Palliative care [] [] Receiving care in room [] Pre-surgical visit [] Trauma [] Long length of stay [] ICU visit [] Other: Relational/Emotional Strength [] Patient feels connected with others/family/visitors/staff [] Distress [] Loneliness/isolation [] Abandonment Spirituality of Patient [] Person of [place] [] Attends Religion of their [place] [] Believes in Prayer [] Reads Bible or Sikhism materials [] There are Spiritual issues to be addressed Resident Director Interventions [] Prayer [] Active listening [] Non-anxious presence [] Spiritual/emotional support [] Crisis/trauma care [] Spiritual counseling [] Bereavement support [] Provided bereavement packet [] Provided Bible/devotional materials [] Provided toy/stuffed animal, coloring book to patient or family member [] Provided Communion [] Anointing/Banning [] Salvation [] Completed spiritual assessment [] Other: Impact on Illness or Injury [] Angry [] Fearful [] Anxious [] Often cries [] Exhaustion [] Unable to work [] Unable to attend synagogue [] Unable to walk/stand [] Unable to read [] Unable to drive [] Unable to eat/drink [] Unable to sleep [] Unable to be with family [] Patient intubated [] Other: Summary Time spent with patient
--- NOTE | 2024-03-18 14:55 | P.PN_ITS ---
Subjective 2 Subjective: Patient was seen this morning, is alert to person, to place, not to time, he follows commands, he is resting comfortably on 5 L, does have complaints of shortness of breath no nasal flaring no intercostal retractions, we discussed the compliance of BiPAP during the night to help with his breathing, his risk of hypercarbic respiratory failure without BiPAP, risk of intubation, he voiced understanding, all questions answered, discussed plans to continue to diurese him and optimizing him for hopefully coronary angiography, Vitals/I&O/Wt Last Vital Signs Temp 98.3 F 03/18/24 11:45 Pulse 113 H 03/18/24 13:35 Resp 18 03/18/24 13:24 BP 112/49 03/18/24 11:45 Pulse Ox 93 03/18/24 13:24 O2 Del Method High Flow Nasal Cannula 03/18/24 13:24 O2 Flow Rate 8 03/18/24 13:24 FiO2 50 03/18/24 11:38 03/17/24 03/18/24 03/18/24 22:59 06:59 14:59 Intake Total 240 / 300 120 / 420 600 / 600 Output Total 1150 / 2650 1300 / 1300 Balance -910 / -2350 120 / -2230 -700 / -700 Weight last 48 hrs Weight 54.658 kg Weight 54.658 kg Weight 55.837 kg Physical Exam 2 Const: COMMON NORMALS: no acute distress ORIENTATION/CONSCIOUSNESS: Yes awake, Yes oriented to person and Yes oriented to place; not oriented to time Resp: COMMON NORMALS: No retractions and No use of accessory muscles A USCULTATION: crackles and wheezes Cardio: COMMON NORMALS: regular rate, regular rhythm, S1 normal heart sound present and S2 normal heart sound present RATE: regular rate RHYTHM: r egular rhythm HEART SOUNDS: S1 normal heart sound present and S2 normal heart sound present GI: COMMON NORMALS: Normal to inspection, nondistended, normoactive bowel sounds present and non-tender Extremity: COMMON NORMALS: no pedal edema Neuro: SENSORIUM/ORIENTATION: Yes oriented to person, Yes oriented to place and No oriented to time Psych: COMMON NORMALS: mental status grossly normal Urinary Catheter Management: Coude: Cath Placed During This Visit: yes Reason for Continuing Indwelling Catheter: Other Urinary Catheter Date of Insertion: 03/14/24 Urinary Catheter Time of Insertion: 08:30 Data 03/18/24 05:03 03/18/24 05:03 A&P Assessment and plan (1) Congestive heart failure: Acute CHF exacerbation, systolic CHF ? Anasarca, lower extreme edema, crackles on lung meredith ? Monitor I's and O's, fluid restrictions 1200 cc ? -15 L so far ? Lasix 40 IV daily -Due to metabolic alkalosis from diuresis, resolved, Diamox stopped ? cardiac echo CONCLUSIONS Mild concentric left ventricular hypertrophy. Mild diffuse hypokinesia with an ejection fraction of 44%. Dilated right ventricle with diffuse hypokinesia and moderately depressed ejection fraction Trace aortic valve regurgitation. Mild tricuspid valve regurgitation. Mild pulmonary valve regurgitation. Estimated pulmonary artery peak systolic pressure 38 mmHg. There are some features of There is no pericardial effusion. There are no intracardiac masses. Compared to the study from 11/03/2023, there is drop in the ejection fraction of both right and left ventricle ? Monitor creatinine, monitor potassium Qualifiers: Heart failure type: biventricular Qualified Code(s): I50.82 - Biventricular heart failure (2) Old [place] (myocardial infarction): Patient reports history of 2 prior MIs, although the details are unclear from patient's reported history Patient had a stress test IMPRESSIONS 1. Medium sized partially reversible perfusion abnormality of moderate severity of mid to apical inferior, basal to mid inferolateral , apical septal, apical anterior and apical lateral long. There is improved tracer uptake in prone stress images. 2. This may represent old myocardial infarction with moderate per-infarct ischemia in right coronary artery and left anterior descending artery territory. However, specifity of this finding is low given findings on prone images. 3. Overall left ventricular systolic function is normal without regional wall motion abnormalities, LVEF=65%. 4. EKG portion of the study will be reported separately. Plan -No active chest pain complaints -Continue aspirin, statin -Serial EKGs, serial troponins, telemetry monitoring ? Cardiology consulted for consideration of cardiac cath (3) Weakness: PT OT (4) Chronic obstructive pulmonary disease: COPD with chronic hypoxic respiratory failure (5) Obstructive sleep apnea: CPAP ordered (6) Pneumonia: CT of his chest shows patchy infiltrates in the left lower lobe and lingula, subtotal consolidation of left lower lobe ? Plan ? Rocephin ? Azithromycin - Monitor respiratory status closely (7) Acute hypoxic respiratory failure: Acute hypoxic hypercarbic respiratory failure -Likely secondary to CHF exacerbation, pneumonia, COPD -He is to be compliant with BiPAP, as needed during the day scheduled during the night -Patient would clinically benefit from BiPAP at home at home, will order an overnight pulse ox -DuoNeb, budesonide (8) Hypercapnic respiratory failure: Plan DVT prophylaxis: Heparin Metabolic alkalosis, will consider acetazolamide Fall about a week ago has multiple bruises on his nasal bridge, above the right brow Plan for today IV diuresis, monitor heart rate continue IV antibiotics, plans for possible cardiac cath Attestations 2 Medical Necessity Statement*: Patient requires hospitalization for acute hypoxic respiratory failure, requiring IV diuresis, hypercarbic respiratory failure requiring BiPAP Diagnoses Biventricular congestive heart failure I50.82 Heart failure type: biventricular Old [place] (myocardial infarction) I25.2 Weakness R53.1 Chronic obstructive pulmonary disease J44.9 Obstructive sleep apnea G47.33 Pneumonia J18.9 Acute hypoxic respiratory failure J96.01 Hypercapnic respiratory failure J96.92
[2024-03-18] MEDS: cefTRIAXone 1,000 mg SDV 1000 MG IVP (16:45)
[2024-03-18] MEDS: azithromycin 250 mg Tablet PO (16:46)
--- NOTE | 2024-03-18 20:22 | PM.PN ---
Subjective Subjective: Today patient appeared to be more alert lungs appeared more clear Vitals/I&O/Wt Last Vital Signs Temp 97.9 F 03/18/24 19:38 Pulse 102 H 03/18/24 19:40 Resp 28 H 03/18/24 19:38 BP 107/66 03/18/24 19:38 Pulse Ox 95 03/18/24 19:40 O2 Del Method High Flow Nasal Cannula 03/18/24 19:40 O2 Flow Rate 6 03/18/24 19:40 FiO2 50 03/18/24 11:38 03/18/24 03/18/24 03/18/24 06:59 14:59 22:59 Intake Total 120 / 420 600 / 600 240 / 840 Output Total 1300 / 1300 550 / 1850 Balance 120 / -2230 -700 / -700 -310 / -1010 Weight last 48 hrs Weight 120 lb 8 oz Weight 120 lb 8 oz Weight 123 lb 1.6 oz Physical Exam Const: OTHER: GENERAL: Patient is awake and somewhat oriented HEART: Regular S1 and S2. No murmur, rub or gallop. LUNGS: Decreased breath sounds with slightly prolonged expiration better than yesterday. CENTRAL NERVOUS SYSTEM: Grossly nonfocal. EXTREMITIES: Lower extremities with out edema bilaterally. Urinary Catheter Management: Coude: Cath Placed During This Visit: yes Reason for Continuing Indwelling Catheter: Accurate Measurement of Urinary Output in Critically Ill Patients Urinary Catheter Date of Insertion: 03/14/24 Urinary Catheter Time of Insertion: 08:30 Data 03/18/24 05:03 03/18/24 05:03 A&P Assessment and plan (1) Congestive heart failure: Patient appeared to be euvolemic reduced diuretics and use at visit based Qualifiers: Heart failure type: biventricular Qualified Code(s): I50.82 - Biventricular heart failure (2) Abnormal cardiovascular stress test: Patient is being nodding good candidate at the moment for left heart cath given his underlying mental status changes generalized weakness and lungs comorbidities, continue to treated medically continue aspirin statin beta-sean isosorbide mononitrate and diuretics 40 mg as needed basis 20 mg once a day (3) Paraplegia: (4) Chronic obstructive pulmonary disease: As per medicine service Attestations Medical Necessity Statement*: Require continuation hospitalization for above defined care Coding Level of Care Code Acute Code for [facility] Fwd Diagnoses Biventricular congestive heart failure I50.82 Heart failure type: biventricular Abnormal cardiovascular stress test R94.39 Paraplegia G82.20 Chronic obstructive pulmonary disease J44.9
[2024-03-18] MEDS: trazodone 100 mg Tablet PO (21:00)
[2024-03-18] MEDS: CLONazepam 0.5 mg Tablet PO (21:00)
[2024-03-18] MEDS: atorvastatin 40 mg Tablet PO (21:00)
[2024-03-18] MEDS: enoxaparin 40 mg/0.4 mL Syringe SUBCUT (22:43)
[2024-03-19] VITALS (28 sets, daily range): BP systolic 94–113; BP diastolic 52–68; PULSE 88–124; RESP 15–28; TEMP 36.9–37.2; O2SAT 87–95
[2024-03-19] MEDS: ipratropium-albuterol 3 mL Neb INHALATION ×4 (02:36→21:34)
[2024-03-19 06:03] LABS: Basophils # 0.1 10^3/uL (0.0-0.1); Basophils % 1.4 %; Eosinophils # 0.1 10^3/uL (0.0-0.8); Eosinophils % 1.4 %; Hematocrit 50.2 % (37-53); Lymphocytes % 22.4 %; Mean Corpuscular HGB Conc 30.3 g/dL (30-55); Mean Corpuscular Hemoglobin 28.6 pg (27-33); Mean Corpuscular Volume 94.4 fl (82-101); Mean Platelet Volume 10.1 fL (7.4-10.4); Monocytes # 0.8 10^3/uL (0.2-0.9); Monocytes % 9.3 %; Neutrophils # 5.75 10^3/uL (1.8-7.7); Neutrophils % 65.2 %; Nucleated Red Blood Cells % 0 %; Platelet Count 269 10^3/cmm (157-399); Red Blood Count 5.32 10^6/uL (3.85-5.65); Red Cell Distribution Width 14.6 % (12.1-15.1); White Blood Count 8.81 10^3/uL (3.29-11.43)
[2024-03-19 06:20] LABS: Magnesium 1.9 mg/dL (1.7-2.3)
[2024-03-19 06:31] LABS: Anion Gap 8.2 (5-19); Blood Urea Nitrogen 20 mg/dL (8-23); Calcium 8.5 mg/dL (8.5-10.5); Carbon Dioxide 40 mmol/L (22-29); Chloride 97 mmol/L (98-107); Glomerular Filtration Rate 133.6 mL/min (90-130); Glucose 80 mg/dL (65-115); NT Pro B Type Natriuretic Pept 941 pg/mL (0-125); Osmolality Calculated 294 mOsm/kg (285-295); Potassium 4.2 mmol/L (3.5-5.1); Sodium 141 mmol/L (136-145)
[2024-03-19 06:33] LABS: Creatinine Clr Calc Pharmacy 64.6334
[2024-03-19] MEDS: budesonide 0.5 mg/2 mL Neb INHALATION ×2 (08:36→21:34)
[2024-03-19] MEDS: gabapentin 300 mg Capsule 600 MG PO ×3 (09:24→20:51)
[2024-03-19] MEDS: sertraline 100 mg Tablet 150 MG PO (09:24)
[2024-03-19] MEDS: aspirin 81 mg EC Tablet PO (09:25)
[2024-03-19] MEDS: loratadine 10 mg Tablet PO (09:25)
[2024-03-19] MEDS: hydrocortisone 10 mg Tablet PO ×2 (09:25→18:06)
[2024-03-19] MEDS: potassium chloride ER 20 mEq Tablet PO (09:26)
[2024-03-19] MEDS: FUROsemide 40 mg Tablet PO (09:27)
--- NOTE | 2024-03-19 14:51 | P.PN_ITS ---
Subjective 2 Subjective: Patient was seen this morning, denies any fevers, no chills, no cough, continues to have weakness and fatigue, discussed compliance with BiPAP Vitals/I&O/Wt Last Vital Signs Temp 97.9 F 03/18/24 19:38 Pulse 109 H 03/19/24 13:48 Resp 18 03/19/24 13:47 BP 107/65 03/19/24 13:00 Pulse Ox 93 03/19/24 13:47 O2 Del Method High Flow Nasal Cannula 03/19/24 13:47 O2 Flow Rate 5 03/19/24 13:47 FiO2 50 03/18/24 11:38 03/18/24 03/19/24 03/19/24 22:59 06:59 14:59 Intake Total 340 / 940 100 / 1040 600 / 600 Output Total 550 / 1850 1500 / 3350 Balance -210 / -910 -1400 / -2310 600 / 600 Weight last 48 hrs Weight 52.435 kg Weight 54.658 kg Weight 54.658 kg Physical Exam 2 Const: COMMON NORMALS: no acute distress and patient oriented x3 Resp: COMMON NORMALS: normal respiratory effort, No retractions and No use of accessory muscles AUSCULTATION: crackles and wheezes Cardio: COMMON NORMALS: regular rate, regular rhythm, S1 normal heart sound present and S2 normal heart sound present RATE: regular rate RHYTHM: r egular rhythm HEART SOUNDS: S1 normal heart sound present and S2 normal heart sound present GI: COMMON NORMALS: Normal to inspection, nondistended, normoactive bowel sounds present and non-tender Extremity: COMMON NORMALS: capillary refill normal and no pedal edema Neuro: COMMON NORMALS: patient oriented x3 Psych: COMMON NORMALS: mental status grossly normal Urinary Catheter Management: Coude: Cath Placed During This Visit: yes Reason for Continuing Indwelling Catheter: Accurate Measurement of Urinary Output in Critically Ill Patients Urinary Catheter Date of Insertion: 03/14/24 Urinary Catheter Time of Insertion: 08:30 Data 03/19/24 05:49 03/19/24 05:49 A&P Assessment and plan (1) Congestive heart failure: Acute CHF exacerbation, systolic CHF ? Anasarca, lower extreme edema, crackles on lung meredith ? Monitor I's and O's, fluid restrictions 1200 cc ? -16 L so far ? Lasix 40 IV daily -Due to metabolic alkalosis from diuresis, resolved, Diamox stopped ? cardiac echo CONCLUSIONS Mild concentric left ventricular hypertrophy. Mild diffuse hypokinesia with an ejection fraction of 44%. Dilated right ventricle with diffuse hypokinesia and moderately depressed ejection fraction Trace aortic valve regurgitation. Mild tricuspid valve regurgitation. Mild pulmonary valve regurgitation. Estimated pulmonary artery peak systolic pressure 38 mmHg. There are some features of There is no pericardial effusion. There are no intracardiac masses. Compared to the study from 11/03/2023, there is drop in the ejection fraction of both right and left ventricle ? 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 Medium sized partially reversible perfusion abnormality of moderate severity of mid to apical inferior, basal to mid inferolateral , apical septal, apical anterior and apical lateral long. There is improved tracer uptake in prone stress images. 2. This may represent old myocardial infarction with moderate per-infarct ischemia in right coronary artery and left anterior descending artery territory. However, specifity of this finding is low given findings on prone images. 3. Overall left ventricular systolic function is normal without regional wall motion abnormalities, LVEF=65%. 4. EKG portion of the study will be reported separately. Plan -No active chest pain complaints -Continue aspirin, statin -Serial EKGs, serial troponins, telemetry monitoring ? Cardiology consulted for consideration of cardiac cath (3) Weakness: PT OT (4) Chronic obstructive pulmonary disease: COPD with chronic hypoxic respiratory failure (5) Obstructive sleep apnea: CPAP ordered (6) Pneumonia: CT of his chest shows patchy infiltrates in the left lower lobe and lingula, subtotal consolidation of left lower lobe ? Plan ? Rocephin ? Azithromycin - Monitor respiratory status closely (7) Acute hypoxic respiratory failure: Acute hypoxic hypercarbic respiratory failure -Likely secondary to CHF exacerbation, pneumonia, COPD -He is to be compliant with BiPAP, as needed during the day scheduled during the night -Patient would clinically benefit from BiPAP at home at home, will order an overnight pulse ox -DuoNeb, budesonide (8) Hypercapnic respiratory failure: Plan DVT prophylaxis: Heparin Metabolic alkalosis, will consider acetazolamide Fall about a week ago has multiple bruises on his nasal bridge, above the right brow Plan for today IV diuresis, monitor heart rate continue IV antibiotics, plans for possible cardiac cath Attestations 2 Medical Necessity Statement*: Patient requires hospitalization for acute CHF exacerbation requiring IV diuresis Diagnoses Biventricular congestive heart failure I50.82 Heart failure type: biventricular [place] (myocardial infarction) I25.2 Weakness R53.1 Chronic obstructive pulmonary disease J44.9 Obstructive sleep apnea G47.33 Pneumonia J18.9 Acute hypoxic respiratory failure J96.01 Hypercapnic respiratory failure J96.92
[2024-03-19] MEDS: azithromycin 250 mg Tablet PO (15:31)
[2024-03-19] MEDS: cefTRIAXone 1,000 mg SDV 1000 MG IVP (15:32)
--- NOTE | 2024-03-19 20:23 | P.PN_ITS ---
Subjective 2 Subjective: Feeling better today Vitals/I&O/Wt Last Vital Signs Temp 99 F 03/19/24 16:00 Pulse 103 H 03/19/24 19:00 Resp 26 H 03/19/24 19:00 BP 104/52 03/19/24 19:00 Pulse Ox 91 03/19/24 19:00 O2 Del Method High Flow Nasal Cannula 03/19/24 13:47 O2 Flow Rate 5 03/19/24 13:47 FiO2 50 03/18/24 11:38 03/19/24 03/19/24 03/19/24 06:59 14:59 22:59 Intake Total 100 / 1040 600 / 600 Output Total 1500 / 3350 1600 / 1600 Balance -1400 / -2310 600 / 600 -1600 / -1000 Weight last 48 hrs Weight 115 lb 9.6 oz Weight 120 lb 8 oz Weight 120 lb 8 oz Physical Exam 2 Const: OTHER: GENERAL: Patient is awake he is oriented as HEART: Regular S1 and S2. No murmur, rub or gallop. LUNGS: Decreased breath sounds but overall clear. CENTRAL NERVOUS SYSTEM: Grossly nonfocal. EXTREMITIES: Lower extremities with out edema bilaterally. Urinary Catheter Management: Coude: Cath Placed During This Visit: yes Reason for Continuing Indwelling Catheter: Accurate Measurement of Urinary Output in Critically Ill Patients Urinary Catheter Date of Insertion: 03/14/24 Urinary Catheter Time of Insertion: 08:30 Data 03/19/24 05:49 03/19/24 05:49 A&P Assessment and plan (1) Congestive heart failure: Patient appeared to be euvolemic reduced diuretics and use at visit based Qualifiers: Heart failure type: biventricular Qualified Code(s): I50.82 - Biventricular heart failure (2) Abnormal cardiovascular stress test: Patient is being not a good candidate at the moment for left heart cath given his underlying mental status changes generalized weakness and comorbidities, continue to treated medically continue aspirin statin beta-sean isosorbide mononitrate and diuretics 40 mg as needed basis 20 mg once a day On today's visit dated 03/19/2024, doing fine from a cardiovascular perspective continue current regimen (3) Chronic obstructive pulmonary disease: As per medicine service Attestations 2 Medical Necessity Statement*: Require continuation hospitalization for above defined care Coding Level of Care Code Acute Code for [facility] Diagnoses Biventricular congestive heart failure I50.82 Heart failure type: biventricular Abnormal cardiovascular stress test R94.39 Chronic obstructive pulmonary disease J44.9
[2024-03-19] MEDS: sennosides 8.6 mg Tablet 17.2 MG PO (20:50)
[2024-03-19] MEDS: atorvastatin 40 mg Tablet PO (20:50)
[2024-03-19] MEDS: trazodone 100 mg Tablet PO (20:50)
[2024-03-19] MEDS: enoxaparin 40 mg/0.4 mL Syringe SUBCUT (21:48)
[2024-03-20] VITALS (13 sets, daily range): BP systolic 100–125; BP diastolic 52–81; PULSE 86–105; RESP 15–24; TEMP 36.4–36.8; O2SAT 88–96
[2024-03-20] MEDS: ipratropium-albuterol 3 mL Neb INHALATION ×4 (03:02→21:25)
[2024-03-20] MEDS: budesonide 0.5 mg/2 mL Neb INHALATION ×2 (07:34→21:25)
[2024-03-20 07:50] LABS: Basophils # 0.1 10^3/uL (0.0-0.1); Basophils % 1.5 %; Eosinophils # 0.1 10^3/uL (0.0-0.8); Hematocrit 51.5 % (37-53); Lymphocytes # 1.3 10^3/uL (0.8-4.8); Lymphocytes % 16.5 %; Mean Corpuscular HGB Conc 30.9 g/dL (30-55); Mean Corpuscular Hemoglobin 29.3 pg (27-33); Mean Corpuscular Volume 94.8 fl (82-101); Monocytes # 0.6 10^3/uL (0.2-0.9); Monocytes % 7.2 %; Neutrophils # 5.82 10^3/uL (1.8-7.7); Neutrophils % 73.4 %; Nucleated Red Blood Cells % 0 %; Platelet Count 312 10^3/cmm (157-399); Red Blood Count 5.43 10^6/uL (3.85-5.65); Red Cell Distribution Width 14.8 % (12.1-15.1); White Blood Count 7.93 10^3/uL (3.29-11.43)
[2024-03-20 08:18] LABS: Anion Gap 8.3 (5-19); Blood Urea Nitrogen 17 mg/dL (8-23); Calcium 9.1 mg/dL (8.5-10.5); Chloride 98 mmol/L (98-107); Creatinine Clr Calc Pharmacy 67.6534; Glomerular Filtration Rate 164.9 mL/min (90-130); Glucose 77 mg/dL (65-115); NT Pro B Type Natriuretic Pept 727 pg/mL (0-125); Osmolality Calculated 298 mOsm/kg (285-295); Potassium 5.3 mmol/L (3.5-5.1); Sodium 144 mmol/L (136-145)
[2024-03-20 08:25] LABS: Carbon Dioxide 43 mmol/L (22-29)
[2024-03-20] MEDS: aspirin 81 mg EC Tablet PO (08:32)
[2024-03-20] MEDS: hydrocortisone 10 mg Tablet PO ×2 (08:33→17:25)
[2024-03-20] MEDS: sertraline 100 mg Tablet 150 MG PO (08:33)
[2024-03-20] MEDS: gabapentin 300 mg Capsule 600 MG PO ×3 (08:33→20:23)
[2024-03-20] MEDS: potassium chloride ER 20 mEq Tablet PO (08:34)
[2024-03-20] MEDS: FUROsemide 40 mg Tablet PO (08:34)
[2024-03-20] MEDS: loratadine 10 mg Tablet PO (08:34)
[2024-03-20] MEDS: acetaZOLAMIDE 250 mg Tablet PO (09:11)
--- NOTE | 2024-03-20 12:25 | PC.SOCIAL ---
IMM Update pg 2 of IMM updated and reviewed w/ patient. Copy provided and copy dated, initialed and placed in chart.
[2024-03-20 13:21] LABS: Blood Urea Nitrogen 18 mg/dL (8-23); Calcium 8.8 mg/dL (8.5-10.5); Chloride 95 mmol/L (98-107); Creatinine Clr Calc Pharmacy 67.6534; Glomerular Filtration Rate 164.9 mL/min (90-130); Glucose 78 mg/dL (65-115); Osmolality Calculated 293 mOsm/kg (285-295); Sodium 141 mmol/L (136-145)
[2024-03-20 13:30] LABS: Carbon Dioxide 43 mmol/L (22-29)
[2024-03-20 13:31] LABS: Anion Gap 7.5 (5-19); Potassium 4.5 mmol/L (3.5-5.1)
--- NOTE | 2024-03-20 16:16 | P.PN_ITS ---
Subjective 2 Subjective: Patient was seen this morning, no fevers or chills overnight, shortness of breath is improving, he is -19 L so far, we discussed him not being compliant with BiPAP, discussed morbidity and mortality associate with hypercarbic respiratory failure, he voiced understanding, all questions answered, Vitals/I&O/Wt Last Vital Signs Temp 98.2 F 03/20/24 12:00 Pulse 105 H 03/20/24 14:00 Resp 18 03/20/24 14:00 BP 117/81 03/20/24 12:00 Pulse Ox 92 03/20/24 14:00 O2 Del Method Nasal Cannula 03/20/24 14:00 O2 Flow Rate 5 03/20/24 14:00 FiO2 50 03/18/24 11:38 03/20/24 03/20/24 03/20/24 06:59 14:59 22:59 Intake Total 360 / 360 Output Total 450 / 3250 Balance -450 / -2650 360 / 360 Weight last 48 hrs Weight 54.885 kg Weight 52.435 kg Physical Exam 2 Const: COMMON NORMALS: no acute distress and patient oriented x3 Resp: COMMON NORMALS: normal respiratory effort, No retractions and No use of accessory muscles AUSCULTATION: crackles and wheezes Cardio: COMMON NORMALS: regular rate, regular rhythm, S1 normal heart sound present and S2 normal heart sound present RATE: regular rate RHYTHM: r egular rhythm HEART SOUNDS: S1 normal heart sound present and S2 normal heart sound present GI: COMMON NORMALS: Normal to inspection, nondistended, normoactive bowel sounds present and non-tender Extremity: COMMON NORMALS: no pedal edema Neuro: COMMON NORMALS: patient oriented x3 Psych: COMMON NORMALS: mental status grossly normal Urinary Catheter Management: Coude: Cath Placed During This Visit: yes Reason for Continuing Indwelling Catheter: Accurate Measurement of Urinary Output in Critically Ill Patients Urinary Catheter Date of Insertion: 03/14/24 Urinary Catheter Time of Insertion: 08:30 Data 03/20/24 07:20 03/20/24 12:10 A&P Assessment and plan (1) Congestive heart failure: Acute CHF exacerbation, systolic CHF ? Anasarca, lower extreme edema, crackles on lung meredith ? Monitor I's and O's, fluid restrictions 1200 cc ? - 19 L so far ? Lasix 40 daily -Due to metabolic alkalosis from diuresis, resolved, Diamox stopped ? cardiac echo CONCLUSIONS Mild concentric left ventricular hypertrophy. Mild diffuse hypokinesia with an ejection fraction of 44%. Dilated right ventricle with diffuse hypokinesia and moderately depressed ejection fraction Trace aortic valve regurgitation. Mild tricuspid valve regurgitation. Mild pulmonary valve regurgitation. Estimated pulmonary artery peak systolic pressure 38 mmHg. There are some features of There is no pericardial effusion. There are no intracardiac masses. Compared to the study from 11/03/2023, there is drop in the ejection fraction of both right and left ventricle ? 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 Medium sized partially reversible perfusion abnormality of moderate severity of mid to apical inferior, basal to mid inferolateral , apical septal, apical anterior and apical lateral long. There is improved tracer uptake in prone stress images. 2. This may represent old myocardial infarction with moderate per-infarct ischemia in right coronary artery and left anterior descending artery territory. However, specifity of this finding is low given findings on prone images. 3. Overall left ventricular systolic function is normal without regional wall motion abnormalities, LVEF=65%. 4. EKG portion of the study will be reported separately. Plan -No active chest pain complaints -Continue aspirin, statin -Serial EKGs, serial troponins, telemetry monitoring ? Cardiology consulted for consideration of cardiac cath (3) Weakness: PT OT (4) Chronic obstructive pulmonary disease: COPD with chronic hypoxic respiratory failure (5) Obstructive sleep apnea: CPAP ordered (6) Pneumonia: CT of his chest shows patchy infiltrates in the left lower lobe and lingula, subtotal consolidation of left lower lobe ? Plan ? Rocephin ? Azithromycin - Monitor respiratory status closely (7) Acute hypoxic respiratory failure: Acute hypoxic hypercarbic respiratory failure -Likely secondary to CHF exacerbation, pneumonia, COPD -He is to be compliant with BiPAP, as needed during the day scheduled during the night -Patient would clinically benefit from BiPAP at home at home, will order an overnight pulse ox -DuoNeb, budesonide (8) Hypercapnic respiratory failure: Plan DVT prophylaxis: Heparin Metabolic alkalosis, acetazolamide today Fall about a week ago has multiple bruises on his nasal bridge, above the right brow Plan for today IV diuresis, monitor heart rate continue IV antibiotics, monitor respiratory status closely Attestations 2 Medical Necessity Statement*: Patient requires hospitalization for acute hypoxic hypercarbic respiratory failure Diagnoses Biventricular congestive heart failure I50.82 Heart failure type: biventricular [place] (myocardial infarction) I25.2 Weakness R53.1 Chronic obstructive pulmonary disease J44.9 Obstructive sleep apnea G47.33 Pneumonia J18.9 Acute hypoxic respiratory failure J96.01 Hypercapnic respiratory failure J96.92
[2024-03-20] MEDS: baclofen 10 mg Tablet 20 MG PO (17:25)
[2024-03-20] MEDS: atorvastatin 40 mg Tablet PO (20:23)
[2024-03-20] MEDS: trazodone 100 mg Tablet PO (20:23)
--- NOTE | 2024-03-20 21:07 | PM.PN ---
Subjective Subjective: Overall feeling better Vitals/I&O/Wt Last Vital Signs Temp 97.9 F 03/20/24 20:00 Pulse 93 03/20/24 20:00 Resp 15 03/20/24 20:00 BP 121/58 03/20/24 20:00 Pulse Ox 94 03/20/24 20:00 O2 Del Method Nasal Cannula 03/20/24 20:00 O2 Flow Rate 5 03/20/24 16:00 FiO2 50 03/18/24 11:38 03/20/24 03/20/24 03/20/24 06:59 14:59 22:59 Intake Total 360 / 360 240 / 600 Output Total 450 / 3250 Balance -450 / -2650 360 / 360 240 / 600 Weight last 48 hrs Weight 121 lb Weight 115 lb 9.6 oz Physical Exam Const: OTHER: GENERAL: Patient is awake he is oriented as HEART: Regular S1 and S2. No murmur, rub or gallop. LUNGS: Decreased breath sounds but overall clear. CENTRAL NERVOUS SYSTEM: Grossly nonfocal. EXTREMITIES: Lower extremities with out edema bilaterally. Urinary Catheter Management: Coude: Cath Placed During This Visit: yes Reason for Continuing Indwelling Catheter: Accurate Measurement of Urinary Output in Critically Ill Patients Urinary Catheter Date of Insertion: 03/14/24 Urinary Catheter Time of Insertion: 08:30 Data 03/20/24 07:20 03/20/24 12:10 A&P Assessment and plan (1) Congestive heart failure: Euvolemic continue current management Qualifiers: Heart failure type: biventricular Qualified Code(s): I50.82 - Biventricular heart failure (2) Abnormal cardiovascular stress test: Patient is being not a good candidate at the moment for left heart cath given his underlying mental status changes generalized weakness and comorbidities, continue to treated medically continue aspirin statin beta-sean isosorbide mononitrate and diuretics 40 mg as needed basis 20 mg once a day On today's visit patient continues to do fine from a cardiovascular perspective continue medical management not a candidate for invasive strategy due to underlying comorbidities and frailty and not being able to tolerate antiplatelet with question of compliance (3) Chronic obstructive pulmonary disease: As per medicine service Plan We will sign off of the Attestations Medical Necessity Statement*: As per medicine Coding Level of Care Code Acute Code for [facility] Diagnoses Biventricular congestive heart failure I50.82 Heart failure type: biventricular Abnormal cardiovascular stress test R94.39 Chronic obstructive pulmonary disease J44.9
[2024-03-20] MEDS: enoxaparin 40 mg/0.4 mL Syringe SUBCUT (22:13)
[2024-03-21] VITALS (9 sets, daily range): BP systolic 91–110; BP diastolic 49–72; PULSE 82–96; RESP 16–22; TEMP 36.6–37.1; O2SAT 80–94
[2024-03-21] MEDS: ipratropium-albuterol 3 mL Neb INHALATION ×2 (02:35→08:16)
[2024-03-21 04:51] LABS: Basophils # 0.1 10^3/uL (0.0-0.1); Basophils % 1.6 %; Eosinophils # 0.1 10^3/uL (0.0-0.8); Eosinophils % 1.4 %; Hematocrit 48.6 % (37-53); Lymphocytes # 1.5 10^3/uL (0.8-4.8); Lymphocytes % 20.5 %; Mean Corpuscular HGB Conc 30.9 g/dL (30-55); Mean Corpuscular Hemoglobin 29.4 pg (27-33); Mean Corpuscular Volume 95.1 fl (82-101); Mean Platelet Volume 10.3 fL (7.4-10.4); Monocytes # 0.5 10^3/uL (0.2-0.9); Monocytes % 7.4 %; Neutrophils # 5.02 10^3/uL (1.8-7.7); Neutrophils % 68.7 %; Nucleated Red Blood Cells % 0 %; Platelet Count 318 10^3/cmm (157-399); Red Blood Count 5.11 10^6/uL (3.85-5.65); Red Cell Distribution Width 14.6 % (12.1-15.1); White Blood Count 7.31 10^3/uL (3.29-11.43)
[2024-03-21 05:16] LABS: Alanine Aminotransferase 22 U/L (0-41); Albumin Level 3.2 g/dL (3.5-5.2); Alkaline Phosphatase 68 U/L (40-130); Anion Gap 10.1 (5-19); Aspartate Amino Transferase 25 U/L (0-40); Blood Urea Nitrogen 16 mg/dL (8-23); Calcium 8.6 mg/dL (8.5-10.5); Carbon Dioxide 36 mmol/L (22-29); Chloride 101 mmol/L (98-107); Creatinine Clr Calc Pharmacy 67.6534; Globulin 2.3 g/dL (1.3-4.6); Glomerular Filtration Rate 164.9 mL/min (90-130); Glucose 99 mg/dL (65-115); Osmolality Calculated 297 mOsm/kg (285-295); Potassium 4.1 mmol/L (3.5-5.1); Sodium 143 mmol/L (136-145); Total Bilirubin 0.3 mg/dL (0.15-1.2); Total Protein 5.5 g/dL (6.6-8.7)
[2024-03-21 05:18] LABS: NT Pro B Type Natriuretic Pept 677 pg/mL (0-125)
[2024-03-21] MEDS: budesonide 0.5 mg/2 mL Neb INHALATION (08:16)
[2024-03-21] MEDS: aspirin 81 mg EC Tablet PO (08:38)
[2024-03-21] MEDS: gabapentin 300 mg Capsule 600 MG PO (08:38)
[2024-03-21] MEDS: loratadine 10 mg Tablet PO (08:38)
[2024-03-21] MEDS: sertraline 100 mg Tablet 150 MG PO (08:38)
[2024-03-21] MEDS: hydrocortisone 10 mg Tablet PO (08:38)
[2024-03-21] MEDS: acetaZOLAMIDE 250 mg Tablet PO (08:38)
[2024-03-21] MEDS: FUROsemide 40 mg Tablet PO (08:38)
[2024-03-21] MEDS: baclofen 10 mg Tablet 20 MG PO (08:38)
--- NOTE | 2024-03-21 11:47 | P.DS_ITS ---
Discharge Providers Date of Admission: 03/14/24 09:50 Date of Discharge: March 21, 2024 Attending Provider at Admission: Lavon Hager MD Attending Provider at Discharge: Chapin Henriquez MD Diagnoses at Discharge Discharge Diagnosis (1) Congestive heart failure: Status: Acute Qualifiers: Heart failure type: biventricular Qualified Code(s): I50.82 - Biventricular heart failure (2) Abnormal cardiovascular stress test: Status: Acute (3) Chronic obstructive pulmonary disease: Status: Acute Reason for Visit Reason for Visit: edema/sob Hospital Course Hospital Course Suraj Sandy, 68-year-old male, this is a 68-year-old male with a past medical history of COPD, chronic hypoxic respiratory failure, history of smoking, quit smoking four months ago, sleep apnea on CPAP, GERD, Raynaud's disease, who presents to [facility] for shortness of breath. this is a 68-year-old male who presented to [facility] for acute or chronic hypoxic hypercarbic respiratory failure, multifactorial from COPD, CHF. for CHF exacerbation, acute CHF exacerbation, systolic CHF. Patient was diuresed over 21 liters as inpatient, overall is euvolemic on discharge. Hospitalization was complicated by metabolic alkalosis, second to o diureses, which has resolved, did receive Diamox as inpatient. On discharge for his CHF exacerbation, I'm discharging him on Lasix 20 mg daily, 10 mg of potassium daily, fluid restrictions 1,000 cc, follow-up with cardiology in one week. there was con cerns for NSTEMI during his hospitalization, his echocardiogram showed EF 44%, mild diffuse hypokinesia. He did have a stress test in the last August 2022, which showed medium-sized partially reversible perfusion abnormality of moderate severity of mid to apical inferior, basal to mid-inferior lateral, apical septal, apical anterior and apical lateral long.Cardiology was consulted, patient was medically managed, plan on outpatient follow-up with cardiology for consideration of coronary angiography, will be discharged on aspirin,statin, patient was advised, if he were to have any chest pain, to go to the emergency room. his hospitalization was also complicated by concerns for pneumonia,received broad-spectrum antibiotic therapy as inpatient, will be discharged with PO antibiotics on discharge. his hospitalization was complicated by hypercarbic respiratory failure, second to COPD, received steroid as inpatient, will be discharged on a steroid burst as outpatient. , for patient's chronic hypercarbic respiratory failure, he does use a CPAP machine at home He quit smoking four months ago, period. During his hospitalization, he did require BiPAP therapy. However, patient was noncompliant with his BiPAP therapy, did do an overnight pulse oximeter test, did have evidence of chronic hypercarbic respiratory failure on his ABG,. During his hospitalization, I had multiple discussions with him about compliance with BiPAP therapy, and that BiPAP therapy would help with his hypercarbic respiratory failure, decrease his risk of hospitalization, decrease his morbidity and mortality. However, patient was recurrently noncompliant with BiPAP therapy throughout his hospitalization. Thus, on discharge, as patient is not compliant with BiPAP, its difficult to get him to qualify for a machine at home. He should continue his CPAP, follow-up with pulmonary, as outpatient. on discharge, patient is quite deconditioned. His BMI is 17.4, I have strongly recommended for him to go to [facility] facility, discussed hospice option, discuss morbidity and mortality assocoiated with his underlying conditions, and with him going home in his current condition. However, during my multiple discussions with him, he refuses to go to a [place] [facility] [place], decline hospice He wants to go home. Thus, will discharge him home. I've had multiple discussions with him, He has a high risk of recurrent ho spitalizations, morbidity and mortality associated. He has voiced his understanding , all questions answered on discharge, He declines [place] [facility] stay. He wants to go home, Physical Exam Const: COMMON NORMALS: no acute distress and patient oriented x3 Resp: COMMON NORMALS: normal respiratory effort, No retractions, No use of accessory muscles and clear to auscultation bilaterally AUSCULTATION: clear to auscultation bilaterally Cardio: COMMON NORMALS: regular rate, regular rhythm, S1 normal heart sound present and S2 normal heart sound present RATE: regular rate RHYTHM: regular rhythm HEART SOUNDS: S1 normal heart sound present and S2 normal heart sound present GI: COMMON NORMALS: Normal to inspection, nondistended, normoactive bowel sounds present and non-tender Extremity: COMMON NORMALS: no pedal edema Neuro: COMMON NORMALS: patient oriented x3 Psych: COMMON NORMALS: mental status grossly normal Urinary Catheter Management: Coude: Cath Placed During This Visit: yes Reason for Continuing Indwelling Catheter: Accurate Measurement of Urinary Output in Critically Ill Patients Urinary Catheter Date of Insertion: 03/14/24 Urinary Catheter Time of Insertion: 08:30 Discharge Data Studies Completed and Pending Completed Studies During Hospitalization Category Date Time Status CT chest wo con [id number] Routine Cat Scan 03/14/24 09:27 Completed XR chest 1V portable [id number] Routine Exams 03/15/24 07:00 Completed XR chest 1V portable [id number] Stat Exams 03/13/24 18:18 Completed CV. echo limited [id number] Stat Ultrasound 03/13/24 21:03 Completed Pending at discharge Category Date Time Status Complete Blood Count w/Auto AM LABS Lab 03/22/24 04:00 Ordered Complete Blood Count w/Auto AM LABS Lab 03/23/24 04:00 Ordered Comprehensive Metabolic Panel AM LABS Lab 03/22/24 04:00 Ordered Comprehensive Metabolic Panel AM LABS Lab 03/23/24 04:00 Ordered Magnesium AM LABS Lab 03/22/24 04:00 Ordered Magnesium AM LABS Lab 03/23/24 04:00 Ordered NT Pro B Type Natriuretic Pept QAM Lab 03/22/24 06:00 Ordered NT Pro B Type Natriuretic Pept QAM Lab 03/23/24 06:00 Ordered Phosphorus AM LABS Lab 03/22/24 04:00 Ordered Phosphorus AM LABS Lab 03/23/24 04:00 Ordered Radiology Impressions Chest CT 03/14/24 09:27 IMPRESSION: 1. Hyperinflation with chronic emphysematous changes and bulla formation in the upper lungs. 2. Small LEFT pleural effusion with subtotal consolidation LEFT lower lobe with air bronchograms. Recommend correlation for pneumonia. 3. Trace RIGHT pleural fluid with RIGHT basilar atelectasis. 4. A few patchy infiltrates in the LEFT lower lobe and lingula. 5. Enlarged main pulmonary arteries can be seen with pulmonary arterial hypertension similar to previous. 6. Cardiomegaly. Chest X-Ray 03/15/24 07:00 IMPRESSION: Lung consolidation and pleural effusion have developed in the left lower hemithorax compared to the previous examination. Laboratory Results WBC 7.31 10^3/uL (3.29-11.43) 03/21/24 04:19 RBC 5.11 10^6/uL (3.85-5.65) 03/21/24 04:19 Hgb 15.00 g/dL (11.27-16.99) 03/21/24 04:19 Hct 48.6 % (37-53) 03/21/24 04:19 MCV 95.1 fl (82-101) 03/21/24 04:19 MCH 29.4 pg (27-33) 03/21/24 04:19 MCHC 30.9 g/dL (30-55) 03/21/24 04:19 RDW 14.6 % (12.1-15.1) 03/21/24 04:19 Plt Count 318 10^3/cmm (157-399) 03/21/24 04:19 MPV 10.3 fL (7.4-10.4) 03/21/24 04:19 Neut % (Auto) 68.7 % 03/21/24 04:19 Lymph % (Auto) 20.5 % 03/21/24 04:19 [place] % (Auto) 7.4 % 03/21/24 04:19 Eos % (Auto) 1.4 % 03/21/24 04:19 Baso % (Auto) 1.6 % 03/21/24 04:19 Neut # (Auto) 5.02 10^3/uL (1.8-7.7) 03/21/24 04:19 Lymph # (Auto) 1.5 10^3/uL (0.8-4.8) 03/21/24 04:19 [place] # (Auto) 0.5 10^3/uL (0.2-0.9) 03/21/24 04:19 Eos # (Auto) 0.1 10^3/uL (0.0-0.8) 03/21/24 04:19 Baso # (Auto) 0.1 10^3/uL (0.0-0.1) 03/21/24 04:19 Nucleated RBC % (auto) 0 % 03/21/24 04:19 Nucleated RBCs # 0.0 /100WBC 03/21/24 04:19 Specimen Type Arterial 03/17/24 08:28 Sample Site Brachial, right 03/17/24 08:28 ABG pH 7.34 (7.35-7.45) L 03/17/24 08:28 ABG pCO2 75.0 mmHg (35-45) H* 03/17/24 08:28 ABG pO2 59.9 mmHg (80.0-100.0) L 03/17/24 08:28 ABG PO2/FiO2 Ratio 119 03/17/24 08:28 ABG HCO3 40.4 mmol/L (22-26) H 03/17/24 08:28 ABG O2 Saturation 93.7 03/16/24 17:01 ABG Base Excess 10.8 mmol/L (-2.0-2.0) H 03/17/24 08:28 Isaiah Test Pos 03/17/24 08:28 A-a O2 Gradient Not Reportable 03/16/24 17:01 Hematocrit 47.2 % (42-52) 03/17/24 08:28 Hgb O2 Saturation 91.5 % (95-100) L 03/16/24 17:01 Carboxyhemoglobin 1.5 %THgb (0.4-20.1) 03/16/24 17:01 Methemoglobin 0.8 % (0.4-1.5) 03/16/24 17:01 Total Hemoglobin 16.5 g/dL (14-18) 03/16/24 17:01 Sodium 138.0 mmol/L (131-143) 03/16/24 17:01 Potassium 3.8 mmol/L (3.5-5.0) 03/16/24 17:01 Glucose 135.0 mg/dL (70-115) H 03/16/24 17:01 Ionized Calcium 1.2 mmol/L (1.1-1.4) 03/16/24 17:01 O2 Delivery Device Bipap 03/17/24 08:28 O2 Liters/Min 6.0 % 03/16/24 17:01 FiO2 50.0 % 03/17/24 08:28 Med Aide ID Monro 03/17/24 08:28 Sodium 143 mmol/L (136-145) 03/21/24 04:19 Potassium 4.1 mmol/L (3.5-5.1) 03/21/24 04:19 Chloride 101 mmol/L (98-107) 03/21/24 04:19 Carbon Dioxide 36 mmol/L (22-29) H 03/21/24 04:19 Anion Gap 10.1 (5-19) 03/21/24 04:19 BUN 16 mg/dL (8-23) 03/21/24 04:19 Creatinine 0.5 mg/dL (0.7-1.2) L 03/21/24 04:19 GFR Calculation 164.9 mL/min (90-130) H 03/21/24 04:19 Glucose 99 mg/dL (65-115) 03/21/24 04:19 Calculated Osmolality 297 mOsm/kg (285-295) H 03/21/24 04:19 Calcium 8.6 mg/dL (8.5-10.5) 03/21/24 04:19 Phosphorus 3.0 mg/dL (2.5-4.5) 03/21/24 04:19 Magnesium 2.0 mg/dL (1.7-2.3) 03/21/24 04:19 Total Bilirubin 0.3 mg/dL (0.15-1.2) 03/21/24 04:19 AST 25 U/L (0-40) 03/21/24 04:19 ALT 22 U/L (0-41) 03/21/24 04:19 Alkaline Phosphatase 68 U/L (40-130) 03/21/24 04:19 Troponin T Baseline 37 ng/L (0-15) H 03/13/24 18:30 Troponin T 120 Minute 40.51 ng/L (0-15) H 03/13/24 20:29 Delta Troponin T 3.51 ABS# (0-10) 03/13/24 20:29 Troponin T Hi Sens 6Hr 31.26 ng/L (0-15) H 03/14/24 00:42 Troponin T Hi Sens 6Hr Delta -5.74 ng/L (0-12) L 03/14/24 00:42 C-Reactive Protein 18.5 mg/L (0.0-4.9) H 03/14/24 04:39 NT-Pro-B Natriuret Pep 677 pg/mL (0-125) H 03/21/24 04:19 Total Protein 5.5 g/dL (6.6-8.7) L 03/21/24 04:19 Albumin 3.2 g/dL (3.5-5.2) L 03/21/24 04:19 Globulin 2.3 g/dL (1.3-4.6) 03/21/24 04:19 Procalcitonin 0.05 ng/mL (0-0.5) 03/14/24 04:39 Coronavirus (PCR) Negative (Negative) 03/13/24 18:22 Influenza A (PCR) Negative (Negative) 03/13/24 18:22 Influenza Type B (PCR) Negative (Negative) 03/13/24 18:22 RSV (PCR) Negative (Negative) 03/13/24 18:22 Vitals Last Vital Signs Temp 98.7 F 03/21/24 11:38 Pulse 93 03/21/24 11:38 Resp 20 H 03/21/24 11:38 BP 101/61 03/21/24 11:38 Pulse Ox 93 03/21/24 11:38 O2 Del Method Nasal Cannula 03/21/24 11:38 O2 Flow Rate 5 03/21/24 10:32 FiO2 50 03/18/24 11:38 Discharge Plan Discharge Patient Disposition: Home Condition: Stable Prescriptions: New furosemide 40 mg Tablet 20 mg PO DAILY@0800 30 Days Qty: 15 0RF atorvastatin 40 mg Tablet 40 mg PO BEDTIME 30 Days Qty: 30 0RF sennosides [senna] 8.6 mg Tablet 17.2 mg PO BEDTIME 30 Days Qty: 30 0RF nitroglycerin 0.4 mg Tablet, Sublingual 0.4 mg sublingual Q5M PRN (Reason: Chest Pain) 30 Days Qty: 30 0RF potassium chloride [Klor-Con M20] 20 mEq tablet,ER particles/crystals 10 meq PO DAILY 30 Days Qty: 15 0RF prednisone 20 mg tablet 20 mg PO BID 5 Days Qty: 10 0RF doxycycline hyclate 100 mg tablet 100 mg PO BID 5 Days Qty: 10 0RF fluticasone propion-salmeterol [Advair Diskus] 250-50 mcg/dose blister with device 1 inh inhalation BID Qty: 60 0RF Incruse Ellipta 62.5 mcg/actuation blister with device 1 inh inhalation DAILY Qty: 30 0RF Continued loratadine [Allergy Relief (loratadine)] 10 mg tablet 10 mg PO DAILY aspirin [Adult Low Dose Aspirin] 81 mg tablet,delayed release (DR/EC) 81 mg PO DAILY Qty: 30 3RF sertraline 100 mg Tablet 150 mg PO DAILY acetaminophen 500 mg Tablet 1,000 mg PO TID PRN (Reason: Pain) gabapentin 300 mg Capsule 600 mg PO TID hydroxyzine HCl 25 mg Tablet 25 mg PO TID PRN (Reason: Anxiety) hydrocortisone 10 mg Tablet 10 mg PO BID fluticasone propionate 50 mcg/actuation [place],Suspension 2 spray INTRANASAL DAILY Rx Instructions: administer into each nostril albuterol sulfate 90 mcg/actuation HFA aerosol inhaler 2 puff INHALATION QID 30 Days Qty: 8.5 0RF Changed trazodone 100 mg tablet 100 mg PO QPM 30 Days Qty: 30 0RF baclofen 20 mg Tablet 20 mg PO QID PRN (Reason: muscle spams) Qty: 1 0RF Discontinued isosorbide dinitrate 10 mg Tablet 10 mg PO TID Rx Instructions: allow nitrate-free interval of 12-14 hrs per 24-hr period No Action (DME) nebulizer accessories Kit See Rx Instructions .Route Qty: 1 0RF Rx Instructions: Please provide 1 nebulizer and supplies (DME) Portable Oxygen 2-4L/NC See Rx Instructions .Route .MEDSUPPLY Qty: 1 0RF Rx Instructions: As directed Discharge Orders: Discharge Order (Routine); Ordered 03/21/24 Ordered By: Chapin Henriquez Other Ambulatory Orders: DME: Oxygen (Order) Location: None Selected Ordered By: Chapin Henriquez Referrals: Maria Eugenia Soares MD [Referring] - 4-7 days María Mendosa MD [Physician] - 2 weeks Jeremy Sanford MD, MBBS, MPH [Referring] - 7-10 days Discharge Diet: Cardiac Discharge Activity: Resume usual activity Patient Instructions: Opioid Safety Activity Restrictions/Additional Instructions: - Please follow-up with your primary care provider this week -Have your primary care provider recheck your kidney function -If you have chest pain or shortness of breath please come back to the hospital -Please take Lasix 20 mg daily with potassium replacement therapy -I have discharged you with steroid therapy doxycycline -Please use Advair, Incruse as prescribed -Albuterol as needed -Please continue to stop smoking -Please use your home CPAP machine Discharge Attestations Time Spent in Discharge Care*: greater than 30 min Quality Metrics Clinical Quality Measures [ No reported AMI, CVA or VTE this stay] Coding Level of Care Code 14101 Total time (in minutes) for Discharge: 45 Diagnoses Biventricular congestive heart failure I50.82 Heart failure type: biventricular Abnormal cardiovascular stress test R94.39 Chronic obstructive pulmonary disease J44.9
[2024-03-21] MEDS: methylPREDNISolone sod succ 125 mg/2 mL INJ IVP (12:41)
--- NOTE | 2024-03-21 15:53 | PC.NURSE ---
This person call [facility] pulmonary clinic to schedule an referral appointment, Casey Caal. Once paperwork is sent clinic will review and call patient. Referral paperwork faxed to [facility] @13:55. Paperwork had to be resent @16:00
== END 2024-03-21 13:53 | disposition home or self-care (01) | DRG 291 ==
LOC: ER 21:10 → ER IP 21:13 → CSU 03-14 05:45
PROVIDERS: Admitting Provider Internal Medicine; Emergency Provider Emergency Medicine; Visit Provider Family Medicine
DX: I50.21 Acute systolic (congestive) heart failure (principal); J18.9 Pneumonia, unspecified organism; J96.22 Acute and chronic respiratory failure with hypercapnia; J96.21 Acute and chronic respiratory failure with hypoxia; J44.0 Chronic obstructive pulmonary disease with (acute) lower respiratory infection; G82.20 Paraplegia, unspecified; E87.3 Alkalosis; J44.1 Chronic obstructive pulmonary disease with (acute) exacerbation; Z87.891 Personal history of nicotine dependence; G47.33 Obstructive sleep apnea (adult) (pediatric); K21.9 Gastro-esophageal reflux disease without esophagitis; I73.00 Raynaud's syndrome without gangrene; Z91.199 Patient's noncompliance with other medical treatment and regimen due to unspecified reason; Z79.82 Long term (current) use of aspirin; Z99.3 Dependence on wheelchair; I25.2 Old myocardial infarction; E87.70 Fluid overload, unspecified; R94.39 Abnormal result of other cardiovascular function study
CPT/HCPCS: 36415; 36600; 51702; 71045; 71250; 80048; 80051; 80053; 82330; 82803; 82805; 83735; 83880; 84100; 84145; 84484; 85025; 86140; 87637; 93005; 93308; 94640; 94660; 94664; 94760; 94762; 96372; 96374; 96375; 96376; 99291; G0378; J0456; J0696; J1630; J1650; J1940; J2060; J2919; J7050; J7626; J8499; Q0144

== ENCOUNTER → 2024-04-03 13:42 | Outpatient (BNVA) | payer OTHER, SELFPAY | PROVIDERS: Visit Provider Nurse Practitioner Family | DX: I50.9 Heart failure, unspecified (principal); J44.9 Chronic obstructive pulmonary disease, unspecified; G47.30 Sleep apnea, unspecified; Z99.89 Dependence on other enabling machines and devices; Z87.891 Personal history of nicotine dependence | CPT/HCPCS: 99214 ==

== ENCOUNTER → 2024-07-07 12:04 | Outpatient (BNVA) | payer OTHER, SELFPAY | PROVIDERS: Visit Provider Internal Medicine Cardiovascular Disease | DX: R94.39 Abnormal result of other cardiovascular function study (principal); R06.00 Dyspnea, unspecified; I50.82 Biventricular heart failure; R58 Hemorrhage, not elsewhere classified | CPT/HCPCS: 36415; 80048; 85025; 85610 ==

== ENCOUNTER 2024-08-18 14:16 | Inpatient (IN) | payer OTHER, MEDICARE, SELFPAY ==
[2024-08-18] VITALS (20 sets, daily range): BP systolic 93–131; BP diastolic 60–87; PULSE 68–94; RESP 15–23; TEMP 36.5–36.8; O2SAT 92–98; BMI 16.9
--- NOTE | 2024-08-18 14:27 | XR_ITS ---
WS: [id number] Portable AP upright chest, 08/18/2024 Clinical Data: SOB Comparison: Portable chest, 03/15/2024 Findings: No nodules or masses are seen. The heart is enlarged. The pulmonary vascularity is not increased. No pneumonia or pneumothorax is seen. The left pleural effusion has almost totally disappeared. There is bilateral basilar opacity unchanged. Upper lobe bullous emphysema remains the same. The aortic arch shows calcification. There are monitor leads on the chest wall. XR/XR chest 1V portable [id number] Impression: 1. Decrease in left pleural effusion. 2. No change in cardiomegaly, bilateral basilar pulmonary opacities and atheros clerosis. 3. Bilateral upper lobe bullous emphysema unchanged.
[2024-08-18 14:36] LABS: Basophils # 0.1 10^3/uL (0.0-0.1); Basophils % 0.8 %; Eosinophils % 0.1 %; Hematocrit 52.8 % (37-53); Lymphocytes # 1.1 10^3/uL (0.8-4.8); Lymphocytes % 12.2 %; Mean Corpuscular HGB Conc 32.2 g/dL (30-55); Mean Corpuscular Hemoglobin 29.8 pg (27-33); Mean Corpuscular Volume 92.5 fl (82-101); Mean Platelet Volume 10.1 fL (7.4-10.4); Monocytes # 0.9 10^3/uL (0.2-0.9); Monocytes % 9.3 %; Neutrophils # 7.22 10^3/uL (1.8-7.7); Neutrophils % 77.4 %; Nucleated Red Blood Cells % 0 %; Platelet Count 340 10^3/cmm (157-399); Red Blood Count 5.71 10^6/uL (3.85-5.65); Red Cell Distribution Width 15.8 % (12.1-15.1); White Blood Count 9.33 10^3/uL (3.29-11.43)
[2024-08-18] MEDS: methylPREDNISolone sod succ 125 mg/2 mL INJ IV (14:39)
[2024-08-18] MEDS: ipratropium-albuterol 3 mL Neb INHALATION ×2 (14:41→21:32)
--- NOTE | 2024-08-18 14:46 | ECG_ITS ---
[facility] Test Date: 2024-08-18 Pat Name: Suraj Sandy Department: Room: 103 Gender: Male Transcription Specialist: : [id number] Requested By: Ike Briggs Order Number: [id number] Chanelle MD: Rachel Amor M.D. Measurements Intervals [place] Rate: 90 P: 82 OR: 175 QRS: 267 QRSD: 121 T: 85 QT: 386 QTc: 475 Interpretive Statements SINUS RHYTHM RIGHT AXIS DEVIATION [QRS AXIS > 100] Compared to ECG 03/16/2024 18:41:17 Sinus tachycardia no longer present Incomplete right bundle-branch block no longer present T-wave abnormality no longer present Electronically Signed On 08-20-2024 19:39:18 CDT by Rachel Amor M.D. [email or web address]
[2024-08-18 14:58] LABS: Alanine Aminotransferase 61 U/L (0-41); Alkaline Phosphatase 119 U/L (40-130); Chloride 93 mmol/L (98-107); Potassium 3.8 mmol/L (3.5-5.1); Sodium 143 mmol/L (136-145)
[2024-08-18 15:09] LABS: ABG PH Result 7.35 (7.35-7.45); Arterial Blood Gas Hematocrit 50.2 % (42-52); Base Excess ABG 11.6 mmol/L (-2.0-2.0); Blood Gas Allen Test Pos; Blood Gas Operator Identificat glc; Blood Gas Sample Site Radial, left; Blood Gas Sample Type Arterial; Carboxyhemoglobin 5.2 %THgb (0.4-20.1); HCO3 ABG 41.4 mmol/L (22-26); Methemoglobin < 0.0 % (0.4-1.5); Oxygen Device NC; PO2 ABG 72.5 mmHg (80.0-100.0); PO2 FiO2 Ratio Arterial Blood 161; Total Hemoglobin 16.4 g/dL (14-18)
[2024-08-18 15:21] LABS: Anion Gap 15.8 (5-19); Aspartate Amino Transferase 85 U/L (0-40); Blood Urea Nitrogen 26 mg/dL (8-23); Calcium 8.9 mg/dL (8.5-10.5); Carbon Dioxide 38 mmol/L (22-29); Creatinine Clr Calc Pharmacy 46.1037; Globulin 2.7 g/dL (1.3-4.6); Glomerular Filtration Rate 66.2 mL/min (90-130); Glucose 111 mg/dL (65-115); NT Pro B Type Natriuretic Pept 22154 pg/mL (0-125); Osmolality Calculated 301 mOsm/kg (285-295); Total Bilirubin 0.8 mg/dL (0.15-1.2); Total Protein 6.7 g/dL (6.6-8.7)
[2024-08-18 15:39] LABS: ABG PCO2 75.3 mmHg (35-45)
[2024-08-18 15:41] LABS: Influenza A NEGATIVE (Negative); Influenza B NEGATIVE (Negative); Respiratory Syncytial Virus Ce NEGATIVE (Negative); SARS-CoV-2 PCR NEGATIVE (Negative)
[2024-08-18] MEDS: FUROsemide 10 mg/mL SDV 4mL 40 MG IVP (16:29)
--- NOTE | 2024-08-18 16:46 | W.ED.SOB ---
HPI - SOB/Dyspnea General: Chief Complaint: Shortness of Breath/Dyspnea Stated Complaint: sob - leg swelling Time Seen by Provider: 08/18/24 14:19 History of Present Illness: HPI Narrative: This patient is a 69-year-old white male who was brought in by EMS for shortness of breath. Patient evidently had shown up at the [facility] clinic and was not wearing his oxygen. They noted his O2 sats to be in the 70s and he was confused. They had him sent to the emergency department by EMS. Patient went to the clinic initially because of back pain and shortness of breath. Patient is normally on 2 to 3 L of oxygen. He does have a history of congestive heart failure, paraplegia, COPD, angina, obstructive sleep apnea and depression. He is not having any chest pain. Related Data Home Medications ?Medication ?Instructions ?Recorded ?Confirmed loratadine 10 mg tablet (Allergy 10 mg PO DAILY 11/13/20 07/07/24 Relief (loratadine)) acetaminophen 500 mg tablet 1,000 mg PO TID PRN Pain 03/14/24 07/07/24 fluticasone propionate 50 2 spray intranasal DAILY 03/14/24 07/07/24 mcg/actuation nasal spray,suspension gabapentin 300 mg capsule 600 mg PO TID 03/14/24 07/07/24 hydrocortisone 10 mg tablet 10 mg PO BID 03/14/24 07/07/24 hydroxyzine HCl 25 mg tablet 25 mg PO TID PRN Anxiety 03/14/24 07/07/24 sertraline 100 mg tablet 150 mg PO DAILY 03/14/24 07/07/24 Previous Rx's ?Medication ?Instructions ?Recorded nebulizer accessories #1 ea 11/13/20 Portable Oxygen #1 ea 12/21/22 aspirin 81 mg tablet,delayed 81 mg PO DAILY #30 tabs 09/27/23 release (Adult Low Dose Aspirin) albuterol sulfate 90 mcg/actuation 2 puff inhalation QID 30 days #8.5 03/21/24 aerosol inhaler grams baclofen 20 mg tablet 20 mg PO QID PRN muscle spams #1 03/21/24 tab fluticasone 250 mcg-salmeterol 50 1 inh inhalation BID #60 ea 03/21/24 mcg/dose blistr powdr for inhalation (Advair Diskus) trazodone 100 mg tablet 100 mg PO QPM 30 days #30 tabs 03/21/24 umeclidinium 62.5 mcg/actuation 1 inh inhalation DAILY #30 ea 03/21/24 blister powder for inhalation (Incruse Ellipta) CPAP mask #1 ea 04/03/24 atorvastatin 40 mg tablet 40 mg PO BEDTIME #90 tabs 04/03/24 furosemide 20 mg tablet 20 mg PO DAILY #90 tabs 04/03/24 Allergies Allergy/AdvReac Type Severity Reaction Status Date / Time adhesive tape Allergy Unknown Unknown Verified 07/07/24 09:59 meperidine Allergy Unknown Unknown Verified 07/07/24 09:59 Review of Systems General: Reports: 10 or more systems reviewed and unremarkable except in HPI and below Resp: Reports: dyspnea PFSH ED PFSH: Medical History Sleep apnea SOB (shortness of breath) Paraplegia Encounter for screening for lung cancer LRTI (lower respiratory tract infection) Chronic obstructive pulmonary disease Ex-smoker Surgical History History of carpal tunnel surgery Family History Mother CAD (coronary artery disease) Father Hypertension Denies family history of Diabetes Social History Smoking and tobacco/nicotine status: former use of tobacco/nicotine Quit status (tobacco/nicotine): has quit using Year quit tobacco: does not remember Former quit date comment: 1ppd x 11 years Second hand smoke exposure: Yes Physical Exam Const: GENERAL APPEARANCE: ill appearing, frail appearing and appears older than stated age ORIENTATION/CONSCIOUSNESS: Yes confused HENMT: COMMON NORMALS: normocephalic, atraumatic, Normal nasal mucous membranes and turbinates present, moist oral mucous membranes and oropharynx normal HEAD & SCALP: normal to inspection, normocephalic and atraumatic FACE & SINUS: normal facial exam NOSE: Normal nasal mucous membranes and turbinates present Eye: COMMON NORMALS: Equal, round and reactive pupils present, EOMs intact bilaterally and conjunctivae normal GENERAL EYE: appearance normal, both eyes and all related structures CONJUNCTIVA: Yes conjunctivae normal PUPIL: Yes Equal, round and reactive pupils present Neck/C-Spine: COMMON NORMALS: supple Chest: COMMONS NORMALS: normal inspection of the chest Resp: EFFORT & INSPECTION: Yes tachypneic AUSCULTATION: diminished lung sounds Cardio: COMMON NORMALS: regular rate and regular rhythm RATE: regular rate RHYTHM: regular rhythm GI: COMMON NORMALS: Normal to inspection, nondistended, normoactive bowel sounds present, Soft to palpation and non-tender AUSCULTATION: Yes normoactive bowel sounds PALPATION: Yes Soft to palpation : COMMON NORMALS: Yes no CVA tenderness BLADDER/KIDNEY EXAM: Yes no CVA tenderness Back/Pelvis: COMMON NORMALS: no CVA tenderness and thoracic and lumbar spine normal to inspection Extremity: NARRATIVE EXTREMITY EXAM: 2+ pitting edema bilateral lower extremities. Neuro: COMMON NORMALS: CN's II-XII intact bilaterally Skin: COMMON NORMALS: no rashes or lesions noted, turgor normal and no jaundice GENERAL SKIN EXAM: no rashes or lesions noted and turgor normal Course Vital Signs: Vital signs: Vital Signs Temperature 98.1 F 08/18/24 14:21 Pulse Rate 87 08/18/24 16:30 Respiratory Rate 19 H 08/18/24 16:30 Blood Pressure 131/79 08/18/24 16:30 Pulse Oximetry 93 08/18/24 16:15 Oxygen Delivery Me thod BiPAP 08/18/24 16:30 Oxygen Flow Rate 5 08/18/24 14:46 Fraction of Inspir ed Oxygen 40 08/18/24 14:24 MDM - SOB/Dyspnea Medical Decision Making EKG revealed sinus rhythm with no ST segment abnormalities. Chest x-ray is consistent with COPD. No infiltrates. CBC was normal. CMP revealed a BUN of 26. BNP was elevated at 22,154. Arterial blood gases on 6 L revealed a pH of 7.35 with a pCO2 of 75 and a pO2 of 72.5. COVID, RSV and influenza negative. Patient was placed on BiPAP due to the elevated pCO2. He was also given a DuoNeb treatment and 125 mg of Solu-Medrol with his history of COPD. After obtaining the BNP he was given 40 mg of Lasix IV. Patient will need to be admitted. I discussed the case with Dr. Kalyn Goodwin. She did accept the patient. Patient will be transferred to the floor shortly. He is stable. Lab Data 08/18/24 14:23 08/18/24 14:23 Labs/Radiology: Radiology Impressions Chest X-Ray 08/18/24 14:27 Impression: 1. Decrease in left pleural effusion. 2. No change in cardiomegaly, bilateral basilar pulmonary opacities and atherosclerosis. 3. Bilateral upper lobe bullous emphysema unchanged. Laboratory Results WBC 9.33 10^3/uL (3.29-11.43) 08/18/24 14:23 RBC 5.71 10^6/uL (3.85-5.65) H 08/18/24 14:23 Hgb 17.00 g/dL (11.27-16.99) H 08/18/24 14:23 Hct 52.8 % (37-53) 08/18/24 14:23 MCV 92.5 fl (82-101) 08/18/24 14:23 MCH 29.8 pg (27-33) 08/18/24 14:23 MCHC 32.2 g/dL (30-55) 08/18/24 14:23 RDW 15.8 % (12.1-15.1) H 08/18/24 14:23 Plt Count 340 10^3/cmm (157-399) 08/18/24 14:23 MPV 10.1 fL (7.4-10.4) 08/18/24 14:23 Neut % (Auto) 77.4 % 08/18/24 14:23 Lymph % (Auto) 12.2 % 08/18/24 14:23 Greenlee % (Auto) 9.3 % 08/18/24 14:23 Eos % (Auto) 0.1 % 08/18/24 14:23 Baso % (Auto) 0.8 % 08/18/24 14:23 Neut # (Auto) 7.22 10^3/uL (1.8-7.7) 08/18/24 14:23 Lymph # (Auto) 1.1 10^3/uL (0.8-4.8) 08/18/24 14:23 Greenlee # (Auto) 0.9 10^3/uL (0.2-0.9) 08/18/24 14:23 Eos # (Auto) 0.0 10^3/uL (0.0-0.8) 08/18/24 14:23 Baso # (Auto) 0.1 10^3/uL (0.0-0.1) 08/18/24 14:23 Nucleated RBC % (auto) 0 % 08/18/24 14:23 Nucleated RBCs # 0.0 /100WBC 08/18/24 14:23 Specimen Type Arterial 08/18/24 14:55 Sample Site Radial, left 08/18/24 14:55 ABG pH 7.35 (7.35-7.45) 08/18/24 14:55 ABG pCO2 75.3 mmHg (35-45) H* 08/18/24 14:55 ABG pO2 72.5 mmHg (80.0-100.0) L 08/18/24 14:55 ABG PO2/FiO2 Ratio 161 08/18/24 14:55 ABG HCO3 41.4 mmol/L (22-26) H 08/18/24 14:55 ABG Base Excess 11.6 mmol/L (-2.0-2.0) H 08/18/24 14:55 Isaiah Test Pos 08/18/24 14:55 Hematocrit 50.2 % (42-52) 08/18/24 14:55 Hgb O2 Saturation 89.0 % (95-100) L 08/18/24 14:55 Carboxyhemoglobin 5.2 %THgb (0.4-20.1) 08/18/24 14:55 Methemoglobin < 0.0 % (0.4-1.5) L 08/18/24 14:55 Total Hemoglobin 16.4 g/dL (14-18) 08/18/24 14:55 O2 Delivery Device Nc 08/18/24 14:55 O2 Liters/Min 5.0 % 08/18/24 14:55 FiO2 45.0 % 08/18/24 14:55 Dry Cell Assembly Machine Tender ID glc 08/18/24 14:55 Sodium 143 mmol/L (136-145) 08/18/24 14:23 Potassium 3.8 mmol/L (3.5-5.1) 08/18/24 14:23 Chloride 93 mmol/L (98-107) L 08/18/24 14:23 Carbon Dioxide 38 mmol/L (22-29) H 08/18/24 14:23 Anion Gap 15.8 (5-19) 08/18/24 14:23 BUN 26 mg/dL (8-23) H 08/18/24 14:23 Creatinine 1.1 mg/dL (0.7-1.2) 08/18/24 14:23 GFR Calculation 66.2 mL/min (90-130) L 08/18/24 14:23 Glucose 111 mg/dL (65-115) 08/18/24 14:23 Calculated Osmolality 301 mOsm/kg (285-295) H 08/18/24 14:23 Calcium 8.9 mg/dL (8.5-10.5) 08/18/24 14:23 Total Bilirubin 0.8 mg/dL (0.15-1.2) 08/18/24 14:23 AST 85 U/L (0-40) H 08/18/24 14:23 ALT 61 U/L (0-41) H 08/18/24 14:23 Alkaline Phosphatase 119 U/L (40-130) 08/18/24 14:23 NT-Pro-B Natriuret Pep 45965 pg/mL (0-125) H 08/18/24 14:23 Total Protein 6.7 g/dL (6.6-8.7) 08/18/24 14:23 Albumin 4.0 g/dL (3.5-5.2) 08/18/24 14:23 Globulin 2.7 g/dL (1.3-4.6) 08/18/24 14:23 Influenza A (PCR) Negative (Negative) 08/18/24 14:45 Influenza Type B (PCR) Negative (Negative) 08/18/24 14:45 RSV (PCR) Negative (Negative) 08/18/24 14:45 SARS-CoV-2 (PCR) Negative (Negative) 08/18/24 14:45 All radiology interpretation(s) finalized by discharge Discharge Plan Discharge Patient Disposition: Admitted As Inpatient Clinical Impression: Chronic obstructive pulmonary disease Qualifiers: COPD type: COPD with acute exacerbation Qualified Code(s): J44.1 - Chronic obstructive pulmonary disease with (acute) exacerbation Congestive heart failure Qualifiers: Heart failure type: biventricular Qualified Code(s): I50.82 - Biventricular heart failure Condition: Stable Coding Level of Care Code ED Division Roadmaster for Nilesh Martin
--- NOTE | 2024-08-18 17:43 | PC.NURSE ---
pt report called to nurse Billy RN CSU.
--- NOTE | 2024-08-18 18:00 | PC.NURSE ---
Admit Note Patient admitted to ROOM 103 from er via wheelchair. Covering service notified. Patient presents with low spo2 and confusion. Orders reviewed & will continue to monitor. Patient and/or employment program representative oriented to environment, equipment, and informed of the following as found in the admission booklet: patient rights & responsibilities, visitor policy, hand and respiratory hygiene practice. Other education includes: oxygen use and diuretic. Patient and/or employment program representative.
--- NOTE | 2024-08-18 18:22 | PM.HP ---
Providers/Chief Complaint Admitting Physician: Kalyn Goodwin MD Chief Complaint: sob - leg swelling History of Present Illness Suraj Sandy is a 69 year old male with chronic HFrEF (44%), COPD, chronic hypoxic respiratory failure (2 to 3 L/min O2), CARMEN on CPAP, CAD, history of NH, hypertension, hyperlipidemia, adrenal insufficiency, GERD, paraplegia, and Raynaud's phenomenon who presented with hypoxia. [facility] He was not wearing his oxygen. He was hypoxic to the 70s on room air. He was also confused. He was transferred to the ED. He was noted to have significantly elevated BNP (greater than 22K). Chest x-ray showed bibasilar opacities. ABG showed hypercarbia and he was placed on BiPAP. He is currently requiring 6 L/min O2. He was given IV Solu-Medrol and Lasix in the ED. Review of Systems General: Reports: 10 or more systems reviewed and unremarkable except in HPI and below Medications/Allergies Home Medications ?Medication ?Instructions ?Recorded ?Confirmed ?Last Taken ?Type loratadine 10 mg tablet (Allergy 10 mg PO DAILY 11/13/20 07/07/24 Unknown History Relief (loratadine)) nebulizer accessories #1 ea 11/13/20 04/03/24 Unknown Rx Portable Oxygen #1 ea 12/21/22 04/03/24 Unknown Rx aspirin 81 mg tablet,delayed 81 mg PO DAILY #30 tabs 09/27/23 07/07/24 Unknown Rx release (Adult Low Dose Aspirin) acetaminophen 500 mg tablet 1,000 mg PO TID PRN Pain 03/14/24 07/07/24 Unknown History fluticasone propionate 50 2 spray intranasal DAILY 03/14/24 07/07/24 Unknown History mcg/actuation nasal spray,suspension gabapentin 300 mg capsule 600 mg PO TID 03/14/24 07/07/24 Unknown History hydrocortisone 10 mg tablet 10 mg PO BID 03/14/24 07/07/24 Unknown History hydroxyzine HCl 25 mg tablet 25 mg PO TID PRN Anxiety 03/14/24 07/07/24 Unknown History sertraline 100 mg tablet 150 mg PO DAILY 03/14/24 07/07/24 Unknown History albuterol sulfate 90 mcg/actuation 2 puff inhalation QID 30 days #8.5 03/21/24 07/07/24 Unknown Rx aerosol inhaler grams baclofen 20 mg tablet 20 mg PO QID PRN muscle spams #1 03/21/24 07/07/24 03/12/24 09:00 Rx tab fluticasone 250 mcg-salmeterol 50 1 inh inhalation BID #60 ea 03/21/24 07/07/24 Unknown Rx mcg/dose blistr powdr for inhalation (Advair Diskus) trazodone 100 mg tablet 100 mg PO QPM 30 days #30 tabs 03/21/24 07/07/24 Unknown Rx umeclidinium 62.5 mcg/actuation 1 inh inhalation DAILY #30 ea 03/21/24 07/07/24 Unknown Rx blister powder for inhalation (Incruse Ellipta) CPAP mask #1 ea 04/03/24 04/03/24 Unknown Rx atorvastatin 40 mg tablet 40 mg PO BEDTIME #90 tabs 04/03/24 07/07/24 Unknown Rx furosemide 20 mg tablet 20 mg PO DAILY #90 tabs 04/03/24 07/07/24 Unknown Rx Allergies Allergy/AdvReac Type Severity Reaction Status Date / Time adhesive tape Allergy Unknown Unknown Verified 07/07/24 09:59 meperidine Allergy Unknown Unknown Verified 07/07/24 09:59 PFSH Acute PFSH: Medical History Sleep apnea SOB (shortness of breath) Paraplegia Encounter for screening for lung cancer LRTI (lower respiratory tract infection) Chronic obstructive pulmonary disease Ex-smoker Surgical History History of carpal tunnel surgery Family History Mother CAD (coronary artery disease) Father Hypertension Denies family history of Diabetes Social History Smoking and tobacco/nicotine status: former use of tobacco/nicotine Quit status (tobacco/nicotine): has quit using Year quit tobacco: does not remember Former quit date comment: 1ppd x 11 years Second hand smoke exposure: Yes Vitals/I&O/Wt Last Vital Signs Temp 98.1 F 08/18/24 14:21 Pulse 79 08/18/24 18:09 Resp 19 H 08/18/24 18:00 BP 124/79 08/18/24 18:09 Pulse Ox 95 08/18/24 18:09 O2 Del Method BiPAP 08/18/24 18:00 O2 Flow Rate 5 08/18/24 14:46 FiO2 40 08/18/24 14:24 Weight last 48 hrs Weight 52.163 kg Data 08/18/24 14:23 08/18/24 14:23 CXR: Radiologist's impression: 1. Decrease in left pleural effusion. 2. No change in cardiomegaly, bilateral basilar pulmonary opacities and atherosclerosis. 3. Bilateral upper lobe bullous emphysema unchanged. EKG 1: Forward Air Controller/Air Officer Interpretation: SINUS TACHYCARDIA RIGHT AXIS DEVIATION [QRS AXIS > 100] PATTERN CONSISTENT WITH PULMONARY DISEASE INCOMPLETE RIGHT BUNDLE BRANCH BLOCK [90+ ms QRS DURATION, TERMINAL R IN V1/V2, 40+ ms S IN I/aVL/V4/V5/V6] ST DEVIATION AND MODERATE T-WAVE ABNORMALITY, CONSIDER LATERAL ISCHEMIA [-0.1+ mV T-WAVE IN I/aVL/V5/V6] Compared to ECG 03/15/2024 21:16:39 T-wave abnormality now present Possible ischemia now present Myocardial infarct finding no longer present A&P Assessment and plan (1) Acute on chronic respiratory failure with hypoxia and hypercapnia: (2) COPD exacerbation: (3) Acute on chronic HFrEF (heart failure with reduced ejection fraction): (4) Hypertension: (5) Hyperlipidemia: (6) Obstructive sleep apnea: (7) CAD (coronary artery disease): (8) Adrenal insufficiency: Plan Acute on chronic hypoxic and hypercapnic respiratory failure Acute on chronic HFrEF COPD exacerbation ? Continue IV Lasix ? He was on hydrocortisone for adrenal insufficiency; will switch him to IV hydrocortisone ? Continue DuoNebs; formulary substitution for home inhalers ? Placed on BiPAP in the ED; currently on 6 L/min O2 (uses 2 to 3 L/min O2 baseline) ? Monitor I's and O's and daily weights ? Telemetry monitoring ? Monitor renal function Adrenal insufficiency ? IV hydrocortisone as above CAD Hyperlipidemia ? History of NH - Continue aspirin and atorvastatin CARMEN - uses CPAP qhs Hypertension - monitor BP PDMP PDMP Reviewed: Not Reviewed Attestations Medical Necessity Statement*: Patient requires initial hospitalization which is expected to cross 2 midnights. Patient needs IV diuretics, IV steroids, neb treatments, telemetry monitoring. Time Spent in Patient Care: Total time spent in patient care equals 50 minutes. Coding Level of Care Code 15926 Diagnoses Acute on chronic respiratory failure with hypoxia and hypercapnia J96.21; J96.22 COPD exacerbation J44.1 Acute on chronic HFrEF (heart failure with reduced ejection fraction) I50.23 Hypertension I10 Hyperlipidemia E78.5 Obstructive sleep apnea G47.33 CAD (coronary artery disease) I25.10 Adrenal insufficiency E27.40
[2024-08-18 19:38] LABS: Procalcitonin 0.06 ng/mL (0-0.5)
[2024-08-18 20:14] LABS: Troponin(5th) Baseline 45 ng/L (0-15)
[2024-08-18] MEDS: gabapentin 300 mg Capsule 600 MG PO (20:37)
[2024-08-18] MEDS: atorvastatin 40 mg Tablet PO (20:38)
[2024-08-18] MEDS: enoxaparin 40 mg/0.4 mL Syringe SUBCUT (20:39)
[2024-08-18] MEDS: budesonide 0.5 mg/2 mL Neb INHALATION (21:32)
[2024-08-18 22:49] LABS: Troponin 5 2HR 41.07 ng/L (0-15)
[2024-08-18 22:55] LABS: Troponin 5 2HR Delta -3.93 ABS# (0-10)
[2024-08-19] VITALS (13 sets, daily range): BP systolic 93–134; BP diastolic 53–73; PULSE 71–98; RESP 14–24; TEMP 36.4–37.2; O2SAT 90–100
[2024-08-19] MEDS: hydrocortisone 100 mg/2 mL SDV 50 MG IVP ×2 (02:02→15:15)
[2024-08-19] MEDS: ipratropium-albuterol 3 mL Neb INHALATION ×4 (02:33→19:52)
[2024-08-19 03:56] LABS: Basophils % 0.3 %; Hematocrit 48.5 % (37-53); Lymphocytes # 0.7 10^3/uL (0.8-4.8); Lymphocytes % 9.1 %; Mean Corpuscular Hemoglobin 29.8 pg (27-33); Mean Corpuscular Volume 93.3 fl (82-101); Monocytes # 1.2 10^3/uL (0.2-0.9); Monocytes % 15.5 %; Neutrophils # 5.64 10^3/uL (1.8-7.7); Neutrophils % 74.7 %; Nucleated Red Blood Cells % 0 %; Platelet Count 305 10^3/cmm (157-399); Red Cell Distribution Width 15.5 % (12.1-15.1); White Blood Count 7.55 10^3/uL (3.29-11.43)
[2024-08-19 04:10] LABS: Troponin 5 6HR 41.48 ng/L (0-15)
[2024-08-19 04:11] LABS: Troponin 5 6HR Delta -3.52 ng/L (0-12)
[2024-08-19 04:12] LABS: Blood Urea Nitrogen 26 mg/dL (8-23); Calcium 8.4 mg/dL (8.5-10.5); Chloride 95 mmol/L (98-107); Creatinine Clr Calc Pharmacy 46.1037; Glomerular Filtration Rate 66.2 mL/min (90-130); Glucose 82 mg/dL (65-115); Osmolality Calculated 304 mOsm/kg (285-295); Sodium 145 mmol/L (136-145)
[2024-08-19 04:29] LABS: Anion Gap 11.1 (5-19); Potassium 4.1 mmol/L (3.5-5.1)
[2024-08-19 04:31] LABS: Carbon Dioxide 43 mmol/L (22-29)
[2024-08-19] MEDS: FUROsemide 10 mg/mL SDV 4mL 40 MG IVP ×2 (04:51→15:16)
--- NOTE | 2024-08-19 05:11 | P.PN_ITS ---
Subjective 2 Subjective: Reports still very short of breath. Feeling better today however. No chest pain. Having a lot of urine output. Medications: Reviewed: Yes Vitals/I&O/Wt Last Vital Signs Temp 97.9 F 08/19/24 04:00 Pulse 95 08/19/24 04:00 Resp 19 H 08/19/24 04:00 BP 93/62 08/19/24 04:00 Pulse Ox 90 08/19/24 04:00 O2 Del Method Nasal Cannula 08/19/24 04:00 O2 Flow Rate 5 08/19/24 02:33 FiO2 40 08/18/24 14:24 08/18/24 08/18/24 08/19/24 14:59 22:59 06:59 Output Total 200 / 200 200 / 400 Balance -200 / -200 -200 / -400 Weight last 48 hrs Weight 115 lb Physical Exam 2 Narrative: General: Cooperative, tachypneic. Thin body habitus. HEENT: Normocephalic, Atraumatic. External ears normal. Nasal passages patent without drainage. MMM. Heart: RRR. Resp: Rales throughout the meredith. Diminished lung sounds, Mild wheezes. Abd: Soft, non-tender. Non-distended. Extremities: 2+ LE edema. Skin: No rash or lesions on exposed areas. Neuro: Alert, oriented. Data 08/19/24 02:20 08/19/24 02:20 A&P Assessment and plan (1) Acute on chronic respiratory failure with hypoxia and hypercapnia: (2) COPD exacerbation: (3) Acute on chronic HFrEF (heart failure with reduced ejection fraction): (4) Hypertension: (5) Hyperlipidemia: (6) Obstructive sleep apnea: (7) CAD (coronary artery disease): (8) Adrenal insufficiency: Plan 69 y/o M admitted for acute on chronic hypoxic and hypercapnic respiratory failure, exacerbation of chronic HFrEF. Continue close inpatient monitoring. Continues to have crackles throughout the lungs, LE edema. Is tachypneic. O2 sats are 92% on 5L n/c. Start on Cefepime for COPD-E given severity of symptoms and chronic systemic steroid use. Continue lasix BID. Continue RAAT, Duonebs, O2 protocol. Placed on BiPAP in the ED; currently on 6 L/min O2 (uses 2 to 3 L/min O2 baseline) Continue to monitor I/O's and daily weights Continue Telemetry. Recheck am labs. History of adrenal insufficiency, takes oral hydrocortisone at home. Continue IV hydrocortisone for now given his critical illness. BP stable. Continue other home medications for chronic illnesses. Code Status: Full IVF: None DVT PPx: Lovenox GI PPx: Protonix ABx: Cefepime Diet: Cardiac Discharge plan: Home when stable. PDMP PDMP Reviewed: Not Reviewed Attestations 2 Medical Necessity Statement*: Patient requires initial hospitalization which is expected to cross 2 midnights. Patient needs IV diuretics, IV steroids, neb treatments, telemetry monitoring. Coding Level of Care Code Acute Code for Chg Fwd Moderate MDM includes number and complexity of problems actively addressed during encounter, amount and/or complexity of data reviewed/ordered and described risk of complication, morbidity or mortality of management as documented Diagnoses Acute on chronic respiratory failure with hypoxia and hypercapnia J96.21; J96.22 COPD exacerbation J44.1 Acute on chronic HFrEF (heart failure with reduced ejection fraction) I50.23 Hypertension I10 Hyperlipidemia E78.5 Obstructive sleep apnea G47.33 CAD (coronary artery disease) I25.10 Adrenal insufficiency E27.40
[2024-08-19] MEDS: budesonide 0.5 mg/2 mL Neb INHALATION ×2 (08:30→19:52)
[2024-08-19] MEDS: aspirin 81 mg EC Tablet PO (08:53)
[2024-08-19] MEDS: sertraline 100 mg Tablet 150 MG PO (08:53)
[2024-08-19] MEDS: pantoprazole DR 40 mg Tablet PO (08:54)
[2024-08-19] MEDS: loratadine 10 mg Tablet PO (08:54)
[2024-08-19] MEDS: gabapentin 300 mg Capsule 600 MG PO ×3 (08:54→20:26)
[2024-08-19] MEDS: fluticasone nasal spray 16gm Btl 2 SPRAY INTRANASAL (08:58)
--- NOTE | 2024-08-19 09:07 | PC.PHAR ---
Pt is seen at [facility] in [place], [place]. He did not know his medications. Last Med Rec completed 03/14/24. Pt states nothing has changed. I did find that NitroStat 0.4 rx was added 03/21/24.
[2024-08-19] MEDS: acetaminophen 325 mg Tablet 650 MG PO (15:15)
[2024-08-19] MEDS: cefepime 1,000 mg SDV 1000 MG IVP ×2 (17:44→23:49)
[2024-08-19] MEDS: enoxaparin 40 mg/0.4 mL Syringe SUBCUT (17:45)
[2024-08-19] MEDS: atorvastatin 40 mg Tablet PO (20:26)
[2024-08-20] VITALS (12 sets, daily range): BP systolic 99–128; BP diastolic 56–69; PULSE 78–101; RESP 15–24; TEMP 36.7–37.4; O2SAT 90–98
[2024-08-20] MEDS: hydrocortisone 100 mg/2 mL SDV 50 MG IVP ×2 (02:12→13:49)
[2024-08-20] MEDS: ipratropium-albuterol 3 mL Neb INHALATION ×4 (03:14→20:11)
[2024-08-20 04:07] LABS: Basophils % 0.1 %; Eosinophils % 0.1 %; Hematocrit 48.7 % (37-53); Lymphocytes # 0.6 10^3/uL (0.8-4.8); Lymphocytes % 7.6 %; Mean Corpuscular HGB Conc 30.6 g/dL (30-55); Mean Corpuscular Hemoglobin 30.3 pg (27-33); Mean Corpuscular Volume 99.2 fl (82-101); Mean Platelet Volume 10.9 fL (7.4-10.4); Monocytes # 0.8 10^3/uL (0.2-0.9); Monocytes % 9.8 %; Neutrophils # 6.62 10^3/uL (1.8-7.7); Nucleated Red Blood Cells % 0 %; Platelet Count 268 10^3/cmm (157-399); Red Blood Count 4.91 10^6/uL (3.85-5.65); Red Cell Distribution Width 15.7 % (12.1-15.1); White Blood Count 8.07 10^3/uL (3.29-11.43)
[2024-08-20 04:20] LABS: Blood Urea Nitrogen 21 mg/dL (8-23); Calcium 8.1 mg/dL (8.5-10.5); Chloride 97 mmol/L (98-107); Creatinine Clr Calc Pharmacy 63.2273; Glomerular Filtration Rate 95.6 mL/min (90-130); Glucose 126 mg/dL (65-115); Osmolality Calculated 311 mOsm/kg (285-295); Sodium 148 mmol/L (136-145)
[2024-08-20 04:37] LABS: Anion Gap 11.4 (5-19); Potassium 3.4 mmol/L (3.5-5.1)
[2024-08-20 04:39] LABS: Carbon Dioxide 43 mmol/L (22-29)
[2024-08-20] MEDS: FUROsemide 10 mg/mL SDV 4mL 40 MG IVP (04:44)
--- NOTE | 2024-08-20 07:24 | P.PN_ITS ---
Subjective 2 Subjective: Still short of breath, feels very fatigued. States that he has had some body aches. Medications: Reviewed: Yes Vitals/I&O/Wt Last Vital Signs Temp 98.2 F 08/20/24 04:32 Pulse 78 08/20/24 04:32 Resp 16 08/20/24 04:32 BP 116/69 08/20/24 04:32 Pulse Ox 94 08/20/24 04:32 O2 Del Method Nasal Cannula 08/20/24 03:14 O2 Flow Rate 4 08/20/24 03:14 FiO2 40 08/19/24 23:10 08/19/24 08/20/24 08/20/24 22:59 06:59 14:59 Intake Total 240 / 600 Balance 240 / 600 Weight last 48 hrs Weight 129 lb Weight 114 lb 11.2 oz Weight 115 lb Physical Exam 2 Narrative: General: Cooperative, tachypneic. Thin body habitus. HEENT: Normocephalic, Atraumatic. External ears normal. Nasal passages patent without drainage. MMM. Heart: RRR. Resp: Mild wheezes with diminished lung sounds. Abd: Soft, non-tender. Non-distended. Extremities: 2+ LE edema. Skin: No rash or lesions on exposed areas. Neuro: Alert, oriented. Data 08/20/24 02:56 08/20/24 02:56 A&P Assessment and plan (1) Acute on chronic respiratory failure with hypoxia and hypercapnia: (2) COPD exacerbation: (3) Acute on chronic HFrEF (heart failure with reduced ejection fraction): (4) Hypertension: (5) Hyperlipidemia: (6) Obstructive sleep apnea: (7) CAD (coronary artery disease): (8) Adrenal insufficiency: Plan 69 y/o M admitted for acute on chronic hypoxic and hypercapnic respiratory failure, exacerbation of chronic HFrEF. Continue close inpatient monitoring. Exam is improved. Lungs are now clear. Reduced air movement throughout. Still feels very fatigued. Continue Cefepime. Will COPD-E given severity of symptoms and chronic systemic steroid use. Has received adequate diuresis. Lungs now clear. Continue RAAT, Duonebs, O2 protocol. Continue BIPAP. Oxygen requirement now down to 3L which is near baseline. Continue to monitor I/O's and daily weights Continue Telemetry. Recheck am labs. Continue hydrocortisone for adrenal insufficiency. BP currently stable. Continue other home medications for chronic illnesses. Code Status: Full IVF: None DVT PPx: Lovenox GI PPx: Protonix ABx: Doxycycline Diet: Cardiac Discharge plan: Home when stable. PDMP PDMP Reviewed: Not Reviewed Attestations 2 Medical Necessity Statement*: Continued hospitalization needs including antibiotics, respiratory support, antibiotics, breathing treatments, lab monitoring, and telemetry monitoring. Coding Level of Care Code Acute Code for Chg Fwd Moderate MDM includes number and complexity of problems actively addressed during encounter, amount and/or complexity of data reviewed/ordered and described risk of complication, morbidity or mortality of management as documented Diagnoses Acute on chronic respiratory failure with hypoxia and hypercapnia J96.21; J96.22 COPD exacerbation J44.1 Acute on chronic HFrEF (heart failure with reduced ejection fraction) I50.23 Primary hypertension I10 Hypertension type: primary hypertension Moderate mixed hyperlipidemia not requiring statin therapy E78.2 Hyperlipidemia type: moderate mixed hyperlipidemia not requiring statin therapy Obstructive sleep apnea G47.33 CAD (coronary artery disease) I25.10 Adrenal insufficiency E27.40
[2024-08-20] MEDS: budesonide 0.5 mg/2 mL Neb INHALATION ×2 (07:34→20:11)
[2024-08-20] MEDS: cefepime 1,000 mg SDV 1000 MG IVP ×2 (08:53→16:11)
[2024-08-20] MEDS: aspirin 81 mg EC Tablet PO (08:53)
[2024-08-20] MEDS: gabapentin 300 mg Capsule 600 MG PO ×3 (08:54→21:01)
[2024-08-20] MEDS: pantoprazole DR 40 mg Tablet PO (08:54)
[2024-08-20] MEDS: loratadine 10 mg Tablet PO (08:54)
[2024-08-20] MEDS: fluticasone nasal spray 16gm Btl 2 SPRAY INTRANASAL (08:54)
[2024-08-20] MEDS: sertraline 100 mg Tablet 150 MG PO (08:54)
[2024-08-20] MEDS: potassium chloride ER 20 mEq Tablet 40 MEQ PO (11:56)
--- NOTE | 2024-08-20 12:06 | PC.NURSE ---
Provider asked nursing to order doxy 100mg IV Q12 hours. Order entered.
[2024-08-20] MEDS: doxycycline 100 MG in sodium chloride 0.9% (plus) 100 ML IV (13:49)
[2024-08-20] MEDS: enoxaparin 40 mg/0.4 mL Syringe SUBCUT (19:02)
[2024-08-20] MEDS: atorvastatin 40 mg Tablet PO (21:01)
[2024-08-20] MEDS: hyDROXYzine 25 mg Capsule PO (23:55)
[2024-08-20] MEDS: trazodone 100 mg Tablet PO (23:56)
[2024-08-21] VITALS (12 sets, daily range): BP systolic 103–117; BP diastolic 31–70; PULSE 81–127; RESP 16–29; TEMP 36.7–37.2; O2SAT 88–95
[2024-08-21] MEDS: ipratropium-albuterol 3 mL Neb INHALATION ×4 (01:49→19:14)
[2024-08-21] MEDS: hydrocortisone 100 mg/2 mL SDV 50 MG IVP (01:51)
[2024-08-21] MEDS: doxycycline 100 MG in sodium chloride 0.9% (plus) 100 ML IV ×2 (01:55→15:22)
[2024-08-21 06:06] LABS: Alanine Aminotransferase 34 U/L (0-41); Albumin Level 3.2 g/dL (3.5-5.2); Alkaline Phosphatase 80 U/L (40-130); Anion Gap 8.9 (5-19); Aspartate Amino Transferase 24 U/L (0-40); Blood Urea Nitrogen 17 mg/dL (8-23); C Reactive Protein 3.5 mg/L (0.0-4.9); Calcium 8.3 mg/dL (8.5-10.5); Chloride 96 mmol/L (98-107); Creatinine Clr Calc Pharmacy 68.6851; Globulin 2.2 g/dL (1.3-4.6); Glomerular Filtration Rate 164.4 mL/min (90-130); Glucose 94 mg/dL (65-115); Osmolality Calculated 297 mOsm/kg (285-295); Potassium 3.9 mmol/L (3.5-5.1); Sodium 143 mmol/L (136-145); Total Bilirubin 0.4 mg/dL (0.15-1.2); Total Protein 5.4 g/dL (6.6-8.7)
[2024-08-21 06:09] LABS: Carbon Dioxide 42 mmol/L (22-29)
[2024-08-21 06:12] LABS: Procalcitonin 0.04 ng/mL (0-0.5)
--- NOTE | 2024-08-21 07:16 | CT_ITS ---
WS: [id number] CT CHEST ANGIOGRAPHY WITH REFORMATS HISTORY: hypoxia TECHNIQUE: Contiguous axial images are obtained through the chest during arterial injection of intravenous contrast. Images are reconstructed to evaluate the pulmonary arteries. MIP imaging also reviewed. All CT scans at [facility] use at least one of these dose optimization techniques: automated exposure control; mA and/or kV adjustment per patient size (includes targeted exams where dose is matched to clinical indication); or iterative reconstruction. CONTRAST: Omnipaque 350; 100 mL IV. DLP: 370.95 mGy.cm COMPARISON: 03/14/2024 Good opacification of the pulmonary arteries. No pulmonary embolism is identified. Very good opacification centrally. Main pulmonary artery and the proximal branches are dilated from hypertension. Mild atherosclerosis aorta. No aneurysm aorta. Marked enlargement of the RIGHT heart chambers with RIGHT heart strain. Tricuspid regurgitation into the hepatic veins. Severe emphysema. Small layering RIGHT pleural effusion. Atelectatic lung disease at the bases. Slightly greater at the LEFT lung base. Normal esophagus. No pathologic lymph nodes. Small hiatal hernia. Stomach is moderately distended with fluid. Adrenal glands are poorly visualized. Splenic varices. Mild anterior wedging of T11. CT/CT angio chest PE protcl [id number] IMPRESSION: 1. No pulmonary embolism. 2. Markedly enlarged pulmonary artery from pulmonary hypertension. 3. Severe chronic emphysema. 4. Tricuspid regurgitation into the hepatic veins. 5. RIGHT heart strain. 6. Small RIGHT pleural effusion. 7. Bibasilar atelectasis.
[2024-08-21] MEDS: methylPREDNISolone sod succ 40 mg/mL INJ IVP ×3 (07:49→23:49)
[2024-08-21] MEDS: gabapentin 300 mg Capsule 600 MG PO ×3 (07:49→20:54)
[2024-08-21] MEDS: aspirin 81 mg EC Tablet PO (07:50)
[2024-08-21] MEDS: loratadine 10 mg Tablet PO (07:50)
[2024-08-21] MEDS: acetaZOLAMIDE 250 mg Tablet 500 MG PO (07:50)
[2024-08-21] MEDS: sertraline 100 mg Tablet 150 MG PO (07:50)
[2024-08-21] MEDS: pantoprazole DR 40 mg Tablet PO (07:50)
[2024-08-21] MEDS: fluticasone nasal spray 16gm Btl 2 SPRAY INTRANASAL (07:51)
[2024-08-21] MEDS: budesonide 0.5 mg/2 mL Neb INHALATION ×2 (08:26→19:14)
[2024-08-21 08:33] LABS: Estmated Average Glucose 140; Hemoglobin A1C 6.5 % (4.0-6.0)
[2024-08-21 09:05] LABS: Procalcitonin 0.04 ng/mL (0-0.5); Thyroid Stimulating Hormone 0.61 uIU/mL (0.27-4.20); Vitamin B12 786 pg/mL (232-1245)
[2024-08-21 09:16] LABS: Iron 26 ug/dL (59-158); Total Iron Binding Capacity 324 mcg/dl; Unsaturated Iron Binding 298 ug/dL (112-347)
[2024-08-21 09:45] LABS: ABG PH Result 7.32 (7.35-7.45); Arterial Blood Gas Hematocrit 51.7 % (42-52); Base Excess ABG 11.3 mmol/L (-2.0-2.0); Blood Gas Allen Test Pos; Blood Gas Operator Identificat BROMA; Blood Gas Sample Site Radial, right; Blood Gas Sample Type Arterial; Carboxyhemoglobin 1.5 %THgb (0.4-20.1); HCO3 ABG 42.1 mmol/L (22-26); HGB O2 Sat 91.4 % (95-100); Ionized Calcium Level - ABG 1.2 mmol/L (1.1-1.4); Methemoglobin < 0.0 % (0.4-1.5); Oxygen Device NC; Oxygen Saturation ABG 92.6; Total Hemoglobin 16.9 g/dL (14-18)
[2024-08-21 09:48] LABS: ABG PCO2 81.1 mmHg (35-45)
--- NOTE | 2024-08-21 11:23 | P.PN_ITS ---
Subjective 2 Subjective: Hospital course, labs appreciated. Patient seen sitting up in chair. Saturating over 92% on 4 L. States he is still feeling out of breath. During examination patient slightly drowsy but AO x 3. Tachypneic. Denies any nausea, vomiting, headache. Vitals/I&O/Wt Last Vital Signs Temp 97.9 F 08/22/24 07:15 Pulse 83 08/22/24 07:37 Resp 18 08/22/24 07:35 BP 115/59 08/22/24 07:15 Pulse Ox 95 08/22/24 07:37 O2 Del Method BiPAP 08/22/24 07:35 O2 Flow Rate 2 08/21/24 16:00 FiO2 35 08/22/24 07:37 08/21/24 08/22/24 08/22/24 22:59 06:59 14:59 Intake Total 340 / 820 100 / 920 360 / 360 Output Total 200 / 200 850 / 850 Balance 140 / 620 100 / 720 -490 / -490 Weight last 48 hrs Weight 56.518 kg Weight 56.518 kg Physical Exam 2 Narrative: General: Cooperative, tachypneic. Thin body habitus. HEENT: Normocephalic, Atraumatic. External ears normal. Nasal passages patent without drainage. MMM. Heart: RRR. Resp: Mild wheezes with diminished lung sounds. Abd: Soft, non-tender. Non-distended. Extremities: 2+ LE edema. Skin: No rash or lesions on exposed areas. Neuro: Alert, oriented. Data 08/22/24 02:16 08/22/24 02:16 A&P Assessment and plan (1) Acute on chronic respiratory failure with hypoxia and hypercapnia: (2) COPD exacerbation: (3) Hypertension: (4) Hyperlipidemia: (5) Obstructive sleep apnea: (6) CAD (coronary artery disease): (7) Adrenal insufficiency: Plan 69 y/o M admitted for acute on chronic hypoxic and hypercapnic respiratory failure, exacerbation of chronic HFrEF. Continue close inpatient monitoring. Exam is improved. Lungs are now clear. Reduced air movement throughout. Still feels very fatigued. Continue Cefepime. Will COPD-E given severity of symptoms and chronic systemic steroid use. Has received adequate diuresis. Lungs now clear. Continue RAAT, Dutomy, O2 protocol. Continue BIPAP. Oxygen requirement now down to 3L which is near baseline. Continue to monitor I/O's and daily weights Continue Telemetry. Recheck am labs. Continue hydrocortisone for adrenal insufficiency. BP currently stable. Continue other home medications for chronic illnesses. Plan for the day: Acute on chronic hypoxic and hypercapnic respiratory failure due to COPD exacerbation. Less likely due to congestive heart failure. Last echocardiogram 06/19/2023 shows EF of 50?55 %, trace TR with PASP of 28 mmHg. Patient did have diuretics earlier in admission. Currently patient is euvolemic. Does have contraction alkalosis with bicarb of more than 40. Check CTA chest to rule out pulmonary embolism or consolidation. Check ABG. Concern for hypercapnia. If hypercapnic can plan for BiPAP. Start on Diamox 500 mg oral daily. Hold off on Lasix. Continue with DuoNebs every 6 hours. Add Pulmicort twice daily. Solu-Medrol 40 mg every 8 hours. Low concerns for pneumonia for now. Continue with empiric doxycycline for now. Discussed CODE STATUS in detail with the patient. Discussed unfortunately patient has advanced COPD and if he ends up on ventilator there is a high chance he will be ventilator dependent. He does not want any mechanical ventilation but is okay with chest compression. CODE STATUS changed to limited resuscitation. Code Status: Limited resuscitation l IVF: None DVT PPx: Lovenox GI PPx: Protonix ABx: Doxycycline Diet: Cardiac Discharge plan: Home when stable. PDMP PDMP Reviewed: Not Reviewed Attestations 2 Medical Necessity Statement*: Requires further hospitalization for management of acute on chronic hypoxic and hypercapnic respiratory failure in setting of COPD exacerbation, contraction alkalosis Diagnoses Acute on chronic respiratory failure with hypoxia and hypercapnia J96.21; J96.22 COPD exacerbation J44.1 Primary hypertension I10 Hypertension type: primary hypertension Moderate mixed hyperlipidemia not requiring statin therapy E78.2 Hyperlipidemia type: moderate mixed hyperlipidemia not requiring statin therapy Obstructive sleep apnea G47.33 CAD (coronary artery disease) I25.10 Adrenal insufficiency E27.40
--- NOTE | 2024-08-21 12:38 | PC.SOCIAL ---
IMM Updated Updated pt on IMM. No questions voiced. Provided pt a copy. Initialed, dated, & timed a copy & placed in chart.
[2024-08-21 13:34] LABS: ABG PH Result 7.32 (7.35-7.45); Arterial Blood Gas Hematocrit 49.9 % (42-52); Base Excess ABG 11.3 mmol/L (-2.0-2.0); Blood Gas Allen Test Pos; Blood Gas Operator Identificat BROMA; Blood Gas Sample Site Radial, right; Blood Gas Sample Type Arterial; Carboxyhemoglobin 1.6 %THgb (0.4-20.1); HGB O2 Sat 86.5 % (95-100); Ionized Calcium Level - ABG 1.2 mmol/L (1.1-1.4); Methemoglobin 0.8 % (0.4-1.5); Oxygen Device NC; Oxygen Saturation ABG 88.7; PO2 FiO2 Ratio Arterial Blood 203; Potassium Level - ABG 4.1 mmol/L (3.5-5.0); Total Hemoglobin 16.3 g/dL (14-18)
--- NOTE | 2024-08-21 14:32 | PC.RESP ---
Patient is refusing to wear Bipap notified
[2024-08-21] MEDS: iohexol 350 mg/mL 500 mL Btl (per mL) IV (15:04)
[2024-08-21 18:02] LABS: ABG PCO2 82.1 mmHg (35-45)
[2024-08-21] MEDS: enoxaparin 40 mg/0.4 mL Syringe SUBCUT (18:04)
--- NOTE | 2024-08-21 18:50 | CTR_ITS ---
PROCEDURE INFORMATION: Exam: CT Head Without Contrast Exam date and time: 08/21/2024 7:39 PM Age: 69 years old Clinical indication: Injury or trauma; Fall; Blunt trauma (contusions or hematomas); Without loss of consciousness TECHNIQUE: Imaging protocol: Computed tomography of the head without contrast. Radiation optimization: All CT scans at this facility use at least one of these dose optimization techniques: automated exposure control; mA and/or kV adjustment per patient size (includes targeted exams where dose is matched to clinical indication); or iterative reconstruction. COMPARISON: CT cervical spin wo con* [id number] 08/21/2024 7:39 PM RADIATION DOSE METRICS: Total DLP (mGy-cm): 1261.3 FINDINGS: Brain: No hemorrhage. Unremarkable white matter. No mass effect. Preserved lou-white interfaces. No pathologic enhancement. Cerebral ventricles: No ventriculomegaly. Paranasal sinuses: Visualized sinuses are unremarkable. No fluid levels. Mastoid air cells: Visualized mastoid air cells are well aerated. Bones: Unremarkable. No acute fracture. Soft tissues: Unremarkable. Vasculature: High-density vascular structures are compatible with recent prior contrast administration. CT/CT head wo con* [id number] IMPRESSION: No evidence of acute intracranial hemorrhage, mass effect, or edema.
--- NOTE | 2024-08-21 18:51 | PC.NURSE ---
patient fell back wards from his home wheel chair patient assisted to feet and back to wheel chair patient alert but does report hitting his head provider notified instruction to obtain ct head
--- NOTE | 2024-08-21 19:00 | PC.NURSE ---
Patient refused to wear telemtry most of the shift.
--- NOTE | 2024-08-21 19:11 | CTR_ITS ---
PROCEDURE INFORMATION: Exam: CT Cervical Spine Without Contrast Exam date and time: 08/21/2024 7:39 PM Age: 69 years old Clinical indication: Injury or trauma; Fall; Blunt trauma TECHNIQUE: Imaging protocol: Computed tomography of the cervical spine without contrast. Radiation optimization: All CT scans at this facility use at least one of these dose optimization techniques: automated exposure control; mA and/or kV adjustment per patient size (includes targeted exams where dose is matched to clinical indication); or iterative reconstruction. COMPARISON: CT angio chest PE protcl [id number] 08/21/2024 2:55 PM RADIATION DOSE METRICS: Total DLP (mGy-cm): 148 FINDINGS: Bones: No evidence of acute cervical spine fracture or traumatic malalignment. There is moderate diffuse degenerative disc and facet disease throughout the cervical spine. There is bilateral neural foraminal stenosis at C3-C4. Right neural foraminal stenosis is evident at C5-C6 and C6-C7. Adequate spinal canal. Pharynx: Normal fossa of Rosenmuller. Normal tonsillar pillars. Larynx: Normal epiglottis. Symmetric vocal folds. Lungs: Emphysema noted at the lung apices. Thyroid: Homogeneous thyroid. Vasculature: Calcification noted in the carotid arteries bilaterally. Soft tissues: Unremarkable. CT/CT cervical spin wo con* [id number] IMPRESSION: 1. No evidence of acute cervical spine fracture or traumatic malalignment. 2. There is moderate degenerative disc and facet disease throughout with neural foraminal stenosis bilaterally at C3-C4 and on the right at C5-C6 and C6-C7. Adequate spinal canal.
[2024-08-21] MEDS: atorvastatin 40 mg Tablet PO (20:54)
[2024-08-21] MEDS: trazodone 100 mg Tablet PO (21:06)
[2024-08-21] MEDS: hyDROXYzine 25 mg Capsule PO (22:53)
[2024-08-22] VITALS (18 sets, daily range): BP systolic 103–144; BP diastolic 59–81; PULSE 79–103; RESP 14–26; TEMP 36.6–36.9; O2SAT 85–100
[2024-08-22] MEDS: ipratropium-albuterol 3 mL Neb INHALATION ×4 (02:00→19:35)
[2024-08-22 02:26] LABS: Basophils % 0.2 %; Eosinophils % 0.1 %; Hematocrit 45.8 % (37-53); Lymphocytes # 0.8 10^3/uL (0.8-4.8); Lymphocytes % 8.9 %; Mean Corpuscular Hemoglobin 30.1 pg (27-33); Mean Platelet Volume 10.1 fL (7.4-10.4); Monocytes # 0.8 10^3/uL (0.2-0.9); Monocytes % 8.8 %; Neutrophils # 7.28 10^3/uL (1.8-7.7); Neutrophils % 81.4 %; Nucleated Red Blood Cells % 0 %; Platelet Count 221 10^3/cmm (157-399); Red Blood Count 4.72 10^6/uL (3.85-5.65); Red Cell Distribution Width 15.5 % (12.1-15.1); White Blood Count 8.95 10^3/uL (3.29-11.43)
[2024-08-22 02:50] LABS: Alanine Aminotransferase 31 U/L (0-41); Albumin Level 3.3 g/dL (3.5-5.2); Alkaline Phosphatase 78 U/L (40-130); Blood Urea Nitrogen 17 mg/dL (8-23); Calcium 8.3 mg/dL (8.5-10.5); Carbon Dioxide 40 mmol/L (22-29); Chloride 97 mmol/L (98-107); Chol HDL Ratio 2.11 mg/dL (1.0-5.00); Cholesterol 120 mg/dL (0-200); Creatinine Clr Calc Pharmacy 68.6851; Globulin 2.1 g/dL (1.3-4.6); Glomerular Filtration Rate 133.2 mL/min (90-130); Glucose 83 mg/dL (65-115); HDL Cholesterol 57 mg/dL (60-100); LDL Cholesterol Calculated 50 mg/dL (50-129); Magnesium 1.9 mg/dL (1.7-2.3); Osmolality Calculated 293 mOsm/kg (285-295); Sodium 141 mmol/L (136-145); Total Bilirubin 0.2 mg/dL (0.15-1.2); Total Protein 5.4 g/dL (6.6-8.7); Triglycerides 67 mg/dL (0-150); VLDL Cholestrol Calculation 13 mg/dL (0-30)
[2024-08-22 03:04] LABS: Aspartate Amino Transferase 26 U/L (0-40)
[2024-08-22 03:14] LABS: Folate Level > 20.0 ng/mL (4.5-32.2)
[2024-08-22] MEDS: doxycycline 100 MG in sodium chloride 0.9% (plus) 100 ML IV ×2 (03:26→15:30)
[2024-08-22] MEDS: budesonide 0.5 mg/2 mL Neb INHALATION ×2 (07:35→19:35)
[2024-08-22] MEDS: acetaZOLAMIDE 250 mg Tablet 500 MG PO (08:35)
[2024-08-22] MEDS: FUROsemide 10 mg/mL SDV 2mL 20 MG IVP (08:35)
[2024-08-22] MEDS: methylPREDNISolone sod succ 40 mg/mL INJ IVP ×3 (08:35→23:16)
[2024-08-22] MEDS: pantoprazole DR 40 mg Tablet PO (08:36)
[2024-08-22] MEDS: fluticasone nasal spray 16gm Btl 2 SPRAY INTRANASAL (08:36)
[2024-08-22] MEDS: sertraline 100 mg Tablet 150 MG PO (08:36)
[2024-08-22] MEDS: gabapentin 300 mg Capsule 600 MG PO ×3 (08:36→21:16)
[2024-08-22] MEDS: loratadine 10 mg Tablet PO (08:36)
[2024-08-22] MEDS: aspirin 81 mg EC Tablet PO (08:36)
[2024-08-22 08:59] LABS: ABG PH Result 7.34 (7.35-7.45); Arterial Blood Gas Hematocrit 48.1 % (42-52); Base Excess ABG 11.1 mmol/L (-2.0-2.0); Blood Gas Allen Test Pos; Blood Gas Sample Type Arterial; Carboxyhemoglobin 1.7 %THgb (0.4-20.1); HCO3 ABG 40.9 mmol/L (22-26); HGB O2 Sat 87.3 % (95-100); Ionized Calcium Level - ABG 1.2 mmol/L (1.1-1.4); Methemoglobin 0.8 % (0.4-1.5); Oxygen Saturation ABG 89.5; PO2 ABG 56.7 mmHg (80.0-100.0); Potassium Level - ABG 3.9 mmol/L (3.5-5.0); Total Hemoglobin 15.7 g/dL (14-18)
[2024-08-22 09:00] LABS: Alveolar-Arterial Oxygen Gradi 14.4 mmHg (5-10); Blood Gas Operator Identificat MONRO; Blood Gas Sample Site Radial, left; Oxygen Device NC; PO2 FiO2 Ratio Arterial Blood 157
[2024-08-22 09:01] LABS: ABG PCO2 76.3 mmHg (35-45)
[2024-08-22] MEDS: ALPRAZolam 0.5 mg Tablet PO ×3 (10:20→21:16)
--- NOTE | 2024-08-22 11:24 | PM.PN ---
Subjective Subjective: No acute events overnight. Yesterday evening patient had persistent hypercapnia for which she reluctantly agreed for BiPAP ventilation. Today morning he is awake and alert, sitting at edge of the bed on 4 L saturating more than 92%. Repeat ABG shows mild hypercapnia. Patient otherwise has remained hemodynamically stable and afebrile. Remains tachypneic. Medications: Reviewed: Yes Vitals/I&O/Wt Last Vital Signs Temp 97.9 F 08/22/24 07:15 Pulse 83 08/22/24 07:37 Resp 18 08/22/24 07:35 BP 115/59 08/22/24 07:15 Pulse Ox 95 08/22/24 07:37 O2 Del Method BiPAP 08/22/24 07:35 O2 Flow Rate 2 08/21/24 16:00 FiO2 35 08/22/24 07:37 08/21/24 08/22/24 08/22/24 22:59 06:59 14:59 Intake Total 340 / 820 100 / 920 360 / 360 Output Total 200 / 200 850 / 850 Balance 140 / 620 100 / 720 -490 / -490 Weight last 48 hrs Weight 56.518 kg Weight 56.518 kg Physical Exam Narrative: General: AO x 3, chronically sick appearing, cachectic, tachypneic. HEENT: Normocephalic, Atraumatic. External ears normal. Nasal passages patent without drainage. MMM. Heart: RRR. Resp: Bilateral bronchial breath sounds all lung meredith with occasional rhonchi, decreased air entry all over lung meredith Abd: Soft, non-tender. Non-distended. Extremities: 2+ LE edema. Skin: No rash or lesions on exposed areas. Neuro: Alert, oriented. Data 08/22/24 02:16 08/22/24 02:16 A&P Assessment and plan (1) Acute on chronic respiratory failure with hypoxia and hypercapnia: (2) COPD exacerbation: (3) Hypertension: (4) Hyperlipidemia: (5) Obstructive sleep apnea: (6) CAD (coronary artery disease): (7) Adrenal insufficiency: (8) Goals of care, counseling/discussion: Plan 69 y/o M admitted for acute on chronic hypoxic and hypercapnic respiratory failure, exacerbation of chronic HFrEF. Continue close inpatient monitoring. Exam is improved. Lungs are now clear. Reduced air movement throughout. Still feels very fatigued. Continue Cefepime. Will COPD-E given severity of symptoms and chronic systemic steroid use. Has received adequate diuresis. Lungs now clear. Continue RAAT, Duonebs, O2 protocol. Continue BIPAP. Oxygen requirement now down to 3L which is near baseline. Continue to monitor I/O's and daily weights Continue Telemetry. Recheck am labs. Continue hydrocortisone for adrenal insufficiency. BP currently stable. Continue other home medications for chronic illnesses. Plan for the day: Acute on chronic hypoxic and hypercapnic respiratory failure due to COPD exacerbation. Less likely due to congestive heart failure. Last echocardiogram 06/19/2023 shows EF of 50?55 %, trace TR with PASP of 28 mmHg. Patient did have diuretics earlier in admission. Currently patient is euvolemic. Does have contraction alkalosis with bicarb of more than 40. CTA chest ruled out pulmonary embolism in main arteries or consolidation. Consistent with severe emphysema and COPD. ABG showing hypercapnia. Resolved with BiPAP ventilation. Patient back to 4 L of oxygen supplementation. Hold off on diuretics. Contraction alkalosis improving. Continue with Diamox. Continue with DuoNebs every 6 hours. Add Pulmicort twice daily. Solu-Medrol 40 mg every 8 hours. Low concerns for pneumonia for now. Continue with empiric doxycycline for now. Goals of care discussion: Had further goals of care discussion with patient at bedside. We discussed he seems to have end-stage COPD with severe emphysema leading to hypercapnia and respiratory failure. Discussed unfortunately patient has a does not have too many options patient probably improve some with nebulization treatment and steroids but there is a high chance that he would not recover. Patient verbalizes understanding. States his main goal is to be able to go back home and have quality of life as much as possible. We discussed options of going home with hospice in which he will continue taking his medications as before he will have medications to keep himself comfortable and if and when he gets sick again they will keep him comfortable at home and let nature take its own course which could mean that he could . Patient is agreeable and wants hospital to be set up. territory outside sales manager alerted. Start on Xanax 0.5 3 times daily. Code Status: Limited resuscitation l IVF: None DVT PPx: Lovenox GI PPx: Protonix ABx: Doxycycline Diet: Cardiac Discharge plan: Home when stable. PDMP PDMP Reviewed: Not Reviewed Attestations Medical Necessity Statement*: Requires further hospitalization while hospice is set up in a patient with concerns for COPD exacerbation leading to acute on chronic hypoxic and hypercapnic respiratory failure. Diagnoses Acute on chronic respiratory failure with hypoxia and hypercapnia J96.21; J96.22 COPD exacerbation J44.1 Primary hypertension I10 Hypertension type: primary hypertension Moderate mixed hyperlipidemia not requiring statin therapy E78.2 Hyperlipidemia type: moderate mixed hyperlipidemia not requiring statin therapy Obstructive sleep apnea G47.33 CAD (coronary artery disease) I25.10 Adrenal insufficiency E27.40 Goals of care, counseling/discussion Z71.89
[2024-08-22] MEDS: enoxaparin 40 mg/0.4 mL Syringe SUBCUT (17:39)
[2024-08-22] MEDS: atorvastatin 40 mg Tablet PO (21:16)
[2024-08-23] VITALS (9 sets, daily range): BP systolic 120–142; BP diastolic 70–79; PULSE 94–104; RESP 17–24; TEMP 36.7–37.1; O2SAT 93–98
[2024-08-23] MEDS: acetaminophen 325 mg Tablet 650 MG PO (02:45)
[2024-08-23] MEDS: ipratropium-albuterol 3 mL Neb INHALATION ×3 (02:50→13:32)
[2024-08-23] MEDS: doxycycline 100 MG in sodium chloride 0.9% (plus) 100 ML IV (03:56)
[2024-08-23] MEDS: budesonide 0.5 mg/2 mL Neb INHALATION (07:54)
--- NOTE | 2024-08-23 08:16 | P.DS_ITS ---
Discharge Providers Date of Admission: 08/18/24 17:00 Date of Discharge: August 23, 2024 Attending Provider at Admission: Kalyn Goodwin MD Attending Provider at Discharge: Edil Kumar MD Diagnoses at Discharge Discharge Diagnosis (1) Acute on chronic respiratory failure with hypoxia and hypercapnia: Status: Acute (2) COPD exacerbation: Status: Acute (3) Hypertension: Status: Acute Qualifiers: Hypertension type: primary hypertension Qualified Code(s): I10 - Essential (primary) hypertension (4) Hyperlipidemia: Status: Acute Qualifiers: Hyperlipidemia type: moderate mixed hyperlipidemia not requiring statin therapy Qualified Code(s): E78.2 - Mixed hyperlipidemia (5) Obstructive sleep apnea: Status: Acute (6) CAD (coronary artery disease): Status: Acute (7) Adrenal insufficiency: Status: Acute (8) Goals of care, counseling/discussion: Status: Acute Reason for Visit Reason for Visit: sob - leg swelling Brief History: History as per HPI: Suraj Sandy is a 69 year old male with chronic HFrEF (44%), COPD, chronic hypoxic respiratory failure (2 to 3 L/min O2), CARMEN on CPAP, CAD, history of AR, hypertension, hyperlipidemia, adrenal insufficiency, GERD, paraplegia, and Raynaud's phenomenon who presented with hypoxia. [facility]. He was not wearing his oxygen. He was hypoxic to the 70s on room air. He was also confused. He was transferred to the ED. He was noted to have significantly elevated BNP (greater than 22K). Chest x-ray showed bibasilar opacities. ABG showed hypercarbia and he was placed on BiPAP. He is currently requiring 6 L/min O2. He was given IV Solu-Medrol and Lasix in the ED. Hospital Course Hospital Course Patient was admitted to the hospital further evaluation and management of acute on chronic hypoxic and hypercapnic respiratory failure in setting of COPD exacerbation with concerns for mild congestive heart failure. He was started on IV diuretics, nebulization treatment and steroid taper. During hospitalization patient continued to have episode of difficulty in breathing with tachypnea for which CT chest was done which consolidation but was concerning for significant COPD. Goals of care discussions were done with the patient given concerns for end- stage COPD. We discussed that patient is at a higher risk of requiring hospitalization, difficulty in breathing because of end-stage COPD. Patient stated he would want to make sure his quality of life does not deteriorate. Options for further long-term treatment plans were discussed in detail with the patient with options discussed continuing current treatment with high chance of patient not improving or recurrent admissions given advanced end-stage COPD versus possible transition to home with hospice. Patient verbalized understanding and wanted to be transition to hospice. product marketing manager alerted and he has been transitioned to home with hospice for further management as per goals of care discussions. Physical Exam Narrative: General: AO x 3, chronically sick appearing, cachectic, tachypneic. HEENT: Normocephalic, Atraumatic. External ears normal. Nasal passages patent without drainage. MMM. Heart: RRR. Resp: Bilateral bronchial breath sounds all lung meredith with occasional rhonchi, decreased air entry all over lung meredith Abd: Soft, non-tender. Non-distended. Extremities: 2+ LE edema. Skin: No rash or lesions on exposed areas. Neuro: Alert, oriented. Discharge Data Studies Completed and Pending Completed Studies During Hospitalization Category Date Time Status CT cervical spin wo con* [id number] Stat Cat Scan 08/21/24 19:[address] head wo con* [id number] Stat Cat Scan 08/21/24 18:50 Completed CTA chest [CT angio chest PE protcl [id number]] Routine Cat Scan 08/21/24 07:16 Completed XR chest 1V portable [id number] Stat Exams 08/18/24 14:27 Completed Pending at discharge Category Date Time Status MAG [Magnesium] AM LABS Lab 08/24/24 04:00 Ordered Radiology Impressions Chest X-Ray 08/18/24 14:27 Impression: 1. Decrease in left pleural effusion. 2. No change in cardiomegaly, bilateral basilar pulmonary opacities and atherosclerosis. 3. Bilateral upper lobe bullous emphysema unchanged. Chest CTA 08/21/24 07:16 IMPRESSION: 1. No pulmonary embolism. 2. Markedly enlarged pulmonary artery from pulmonary hypertension. 3. Severe chronic emphysema. 4. Tricuspid regurgitation into the hepatic veins. 5. RIGHT heart strain. 6. Small RIGHT pleural effusion. 7. Bibasilar atelectasis. Head CT 08/21/24 18:50 IMPRESSION: No evidence of acute intracranial hemorrhage, mass effect, or edema. Cervical Spine CT 08/21/24 19:11 IMPRESSION: 1. No evidence of acute cervical spine fracture or traumatic malalignment. 2. There is moderate degenerative disc and facet disease throughout with neural foraminal stenosis bilaterally at C3-C4 and on the right at C5-C6 and C6- C7. Adequate spinal canal. Laboratory Results WBC 8.95 10^3/uL (3.29-11.43) 08/22/24 02:16 RBC 4.72 10^6/uL (3.85-5.65) 08/22/24 02:16 Hgb 14.20 g/dL (11.27-16.99) 08/22/24 02:16 Hct 45.8 % (37-53) 08/22/24 02:16 MCV 97.0 fl (82-101) 08/22/24 02:16 MCH 30.1 pg (27-33) 08/22/24 02:16 MCHC 31.0 g/dL (30-55) 08/22/24 02:16 RDW 15.5 % (12.1-15.1) H 08/22/24 02:16 Plt Count 221 10^3/cmm (157-399) 08/22/24 02:16 MPV 10.1 fL (7.4-10.4) 08/22/24 02:16 Neut % (Auto) 81.4 % 08/22/24 02:16 Lymph % (Auto) 8.9 % 08/22/24 02:16 [place] % (Auto) 8.8 % 08/22/24 02:16 Eos % (Auto) 0.1 % 08/22/24 02:16 Baso % (Auto) 0.2 % 08/22/24 02:16 Neut # (Auto) 7.28 10^3/uL (1.8-7.7) 08/22/24 02:16 Lymph # (Auto) 0.8 10^3/uL (0.8-4.8) 08/22/24 02:16 [place] # (Auto) 0.8 10^3/uL (0.2-0.9) 08/22/24 02:16 Eos # (Auto) 0.0 10^3/uL (0.0-0.8) 08/22/24 02:16 Baso # (Auto) 0.0 10^3/uL (0.0-0.1) 08/22/24 02:16 Nucleated RBC % (auto) 0 % 08/22/24 02:16 Nucleated RBCs # 0.0 /100WBC 08/22/24 02:16 Specimen Type Arterial 08/22/24 08:47 Sample Site Radial, left 08/22/24 08:47 ABG pH 7.34 (7.35-7.45) L 08/22/24 08:47 ABG pCO2 76.3 mmHg (35-45) H* 08/22/24 08:47 ABG pO2 56.7 mmHg (80.0-100.0) L 08/22/24 08:47 ABG PO2/FiO2 Ratio 157 08/22/24 08:47 ABG HCO3 40.9 mmol/L (22-26) H 08/22/24 08:47 ABG O2 Saturation 89.5 08/22/24 08:47 ABG Base Excess 11.1 mmol/L (-2.0-2.0) H 08/22/24 08:47 Isaiah Test Pos 08/22/24 08:47 A-a O2 Gradient 14.4 mmHg (5-10) H 08/22/24 08:47 Hematocrit 48.1 % (42-52) 08/22/24 08:47 Hgb O2 Saturation 87.3 % (95-100) L 08/22/24 08:47 Carboxyhemoglobin 1.7 %THgb (0.4-20.1) 08/22/24 08:47 Methemoglobin 0.8 % (0.4-1.5) 08/22/24 08:47 Total Hemoglobin 15.7 g/dL (14-18) 08/22/24 08:47 Sodium 141.0 mmol/L (131-143) 08/22/24 08:47 Potassium 3.9 mmol/L (3.5-5.0) 08/22/24 08:47 Glucose 93.0 mg/dL (70-115) 08/22/24 08:47 Ionized Calcium 1.2 mmol/L (1.1-1.4) 08/22/24 08:47 O2 Delivery Device Nc 08/22/24 08:47 O2 Liters/Min 4.0 % 08/22/24 08:47 FiO2 36.0 % 08/22/24 08:47 Electromechanical Equipment Assembler ID Monro 08/22/24 08:47 Sodium 141 mmol/L (136-145) 08/22/24 02:16 Potassium 4.0 mmol/L (3.5-5.1) 08/22/24 02:16 Chloride 97 mmol/L (98-107) L 08/22/24 02:16 Carbon Dioxide 40 mmol/L (22-29) H 08/22/24 02:16 Anion Gap 8.0 (5-19) 08/22/24 02:16 BUN 17 mg/dL (8-23) 08/22/24 02:16 Creatinine 0.6 mg/dL (0.7-1.2) L 08/22/24 02:16 GFR Calculation 133.2 mL/min (90-130) H 08/22/24 02:16 Glucose 83 mg/dL (65-115) 08/22/24 02:16 Estimat Average Glucose 140 08/21/24 05:23 Hemoglobin A1c 6.5 % (4.0-6.0) H 08/21/24 05:23 Calculated Osmolality 293 mOsm/kg (285-295) 08/22/24 02:16 Calcium 8.3 mg/dL (8.5-10.5) L 08/22/24 02:16 Magnesium 2.0 mg/dL (1.7-2.3) 08/23/24 03:13 Iron 26 ug/dL (59-158) L 08/21/24 05:23 TIBC 324 mcg/dl 08/21/24 05:23 % Saturation 8.0 % (20-50) L 08/21/24 05:23 Unsat Iron Binding 298 ug/dL (112-347) 08/21/24 05:23 Total Bilirubin 0.2 mg/dL (0.15-1.2) 08/22/24 02:16 AST 26 U/L (0-40) 08/22/24 02:16 ALT 31 U/L (0-41) 08/22/24 02:16 Alkaline Phosphatase 78 U/L (40-130) 08/22/24 02:16 Troponin T Baseline 45 ng/L (0-15) H 08/18/24 19:23 Troponin T 120 Minute 41.07 ng/L (0-15) H 08/18/24 22:22 Delta Troponin T -3.93 ABS# (0-10) L 08/18/24 22:22 Troponin T Hi Sens 6Hr 41.48 ng/L (0-15) H 08/19/24 02:20 Troponin T Hi Sens 6Hr Delta -3.52 ng/L (0-12) L 08/19/24 02:20 C-Reactive Protein 3.5 mg/L (0.0-4.9) 08/21/24 05:23 NT-Pro-B Natriuret Pep 99281 pg/mL (0-125) H 08/18/24 14:23 Total Protein 5.4 g/dL (6.6-8.7) L 08/22/24 02:16 Albumin 3.3 g/dL (3.5-5.2) L 08/22/24 02:16 Globulin 2.1 g/dL (1.3-4.6) 08/22/24 02:16 Triglycerides 67 mg/dL (0-150) 08/22/24 02:16 Cholesterol 120 mg/dL (0-200) 08/22/24 02:16 LDL Cholesterol, Calc 50 mg/dL (50-129) 08/22/24 02:16 Total VLDL Cholesterol 13 mg/dL (0-30) 08/22/24 02:16 HDL Cholesterol 57 mg/dL (60-100) L 08/22/24 02:16 Cholesterol/HDL Ratio 2.11 mg/dL (1.0-5.00) 08/22/24 02:16 Vitamin B12 786 pg/mL (232-1245) 08/21/24 05:23 Folate > 20.0 ng/mL (4.5-32.2) 08/22/24 02:16 Procalcitonin 0.04 ng/mL (0-0.5) 08/21/24 05:23 Procalcitonin 0.04 ng/mL (0-0.5) 08/21/24 05:23 TSH 0.61 uIU/mL (0.27-4.20) 08/21/24 05:23 Influenza A (PCR) Negative (Negative) 08/18/24 14:45 Influenza Type B (PCR) Negative (Negative) 08/18/24 14:45 RSV (PCR) Negative (Negative) 08/18/24 14:45 SARS-CoV-2 (PCR) Negative (Negative) 08/18/24 14:45 Vitals Last Vital Signs Temp 98.7 F 08/23/24 07:59 Pulse 94 08/23/24 07:59 Resp 24 H 08/23/24 07:59 BP 120/70 08/23/24 07:59 Pulse Ox 95 08/23/24 07:59 O2 Del Method BiPAP 08/23/24 07:59 O2 Flow Rate 5 08/23/24 03:05 FiO2 40 08/23/24 07:57 Discharge Plan Discharge Patient Disposition: Hospice - Medical Facility Condition: Stable Prescriptions: New ipratropium-albuterol 0.5 mg-3 mg(2.5 mg base)/3 mL Solution For Nebulization 3 ml inhalation Q6H.RESP 30 Days Qty: 180 0RF acetazolamide 250 mg Tablet 250 mg PO Q72H 30 Days Qty: 10 0RF Continued loratadine [Allergy Relief (loratadine)] 10 mg tablet 10 mg PO DAILY (DME) nebulizer accessories Kit See Rx Instructions .Route Qty: 1 0RF Rx Instructions: Please provide 1 nebulizer and supplies (DME) Portable Oxygen 2-4L/NC See Rx Instructions .Route .MEDSUPPLY Qty: 1 0RF Rx Instructions: As directed aspirin [Adult Low Dose Aspirin] 81 mg tablet,delayed release (DR/EC) 81 mg PO DAILY Qty: 30 3RF furosemide 20 mg tablet 20 mg PO DAILY Qty: 90 3RF atorvastatin 40 mg tablet 40 mg PO BEDTIME Qty: 90 3RF (DME) CPAP mask See Rx Instructions .Route .MEDSUPPLY Qty: 1 0RF Rx Instructions: As directed sertraline 100 mg Tablet 150 mg PO DAILY acetaminophen 500 mg Tablet 1,000 mg PO TID PRN (Reason: Pain) gabapentin 300 mg Capsule 600 mg PO TID hydroxyzine HCl 25 mg Tablet 25 mg PO TID PRN (Reason: Anxiety) hydrocortisone 10 mg Tablet 10 mg PO BID fluticasone propionate 50 mcg/actuation [place],Suspension 2 spray INTRANASAL DAILY Rx Instructions: administer into each nostril baclofen 20 mg Tablet 20 mg PO QID PRN (Reason: muscle spams) Qty: 1 0RF trazodone 100 mg tablet 100 mg PO QPM 30 Days Qty: 30 0RF albuterol sulfate 90 mcg/actuation HFA aerosol inhaler 2 puff INHALATION QID 30 Days Qty: 8.5 0RF fluticasone propion-salmeterol [Advair Diskus] 250-50 mcg/dose blister with device 1 inh inhalation BID Qty: 60 0RF Incruse Ellipta 62.5 mcg/actuation blister with device 1 inh inhalation DAILY Qty: 30 0RF nitroglycerin 0.4 mg tablet, sublingual See Rx Instructions .ROUTE .COMPLEX Rx Instructions: DISSOLVE 1 TABLET UNDER THE TONGUE EVERY 5 MINUTES NEEDED FOR CHEST PAIN. DO NOT EXCEED A TOTAL OF 3 DOSES IN 15 MINUTES. Discharge Orders: Discharge Order (Routine); Ordered 08/23/24 Ordered By: Edil Kumar Referrals: [facility] [Outside] [facility] [Outside] Discharge Diet: Cardiac Discharge Activity: Resume usual activity and Increase activity as tolerated Patient Instructions: Opioid Safety, Patient Portal & Alejandro Instructions Discharge Attestations Time Spent in Discharge Care*: greater than 30 min Specific Discharge Activities: educating patient, discussing with pcp/other providers, discussing with director of casework services/social workers/dc planners, documenting/other paperwork and evaluating patient/reviewing data Status at Discharge: Cognitive status at discharge: cognitively intact , Behavioral status at discharge: cooperative , Functional status at discharge: uses cane/walker , Overall status at discharge: patient is back to baseline Quality Metrics Clinical Quality Measures [ No reported AMI, CVA or VTE this stay] Coding Level of Care Code 76554 Total time (in minutes) for Discharge: 65 Diagnoses Acute on chronic respiratory failure with hypoxia and hypercapnia J96.21; J96.22 COPD exacerbation J44.1 Primary hypertension I10 Hypertension type: primary hypertension Moderate mixed hyperlipidemia not requiring statin therapy E78.2 Hyperlipidemia type: moderate mixed hyperlipidemia not requiring statin therapy Obstructive sleep apnea G47.33 CAD (coronary artery disease) I25.10 Adrenal insufficiency E27.40 Goals of care, counseling/discussion Z71.89
[2024-08-23] MEDS: loratadine 10 mg Tablet PO (09:26)
[2024-08-23] MEDS: sertraline 100 mg Tablet 150 MG PO (09:26)
[2024-08-23] MEDS: gabapentin 300 mg Capsule 600 MG PO (09:26)
[2024-08-23] MEDS: acetaZOLAMIDE 250 mg Tablet 500 MG PO (09:26)
[2024-08-23] MEDS: pantoprazole DR 40 mg Tablet PO (09:26)
[2024-08-23] MEDS: ALPRAZolam 0.5 mg Tablet PO (09:26)
[2024-08-23] MEDS: aspirin 81 mg EC Tablet PO (09:26)
[2024-08-23] MEDS: fluticasone nasal spray 16gm Btl 2 SPRAY INTRANASAL (09:27)
--- NOTE | 2024-08-23 13:32 | PC.SOCIAL ---
IMM Updated Updated pt on IMM. No questions voiced. Provided pt a copy. Initialed, dated, & timed copy in chart.
== END 2024-08-23 14:30 | disposition hospice, inpatient (51) | DRG 189 ==
LOC: ER 16:44 → CSU 17:00
PROVIDERS: Family Medicine; Admitting Provider Student in an Organized Health Care Education/Training Program; Emergency Provider Emergency Medicine; Visit Provider Student in an Organized Health Care Education/Training Program
DX: J96.21 Acute and chronic respiratory failure with hypoxia (principal); I50.23 Acute on chronic systolic (congestive) heart failure; J44.1 Chronic obstructive pulmonary disease with (acute) exacerbation; E27.40 Unspecified adrenocortical insufficiency; G82.20 Paraplegia, unspecified; E87.3 Alkalosis; I11.0 Hypertensive heart disease with heart failure; J96.22 Acute and chronic respiratory failure with hypercapnia; E78.5 Hyperlipidemia, unspecified; G47.33 Obstructive sleep apnea (adult) (pediatric); I25.10 Atherosclerotic heart disease of native coronary artery without angina pectoris; I73.00 Raynaud's syndrome without gangrene; K21.9 Gastro-esophageal reflux disease without esophagitis; J43.9 Emphysema, unspecified; Z99.81 Dependence on supplemental oxygen; I25.2 Old myocardial infarction; Z87.891 Personal history of nicotine dependence
CPT/HCPCS: 36415; 36600; 70450; 71045; 71275; 72125; 80048; 80051; 80053; 80061; 82330; 82607; 82746; 82805; 83036; 83540; 83550; 83735; 83880; 84145; 84443; 84484; 85025; 86140; 87637; 93005; 94640; 94660; 94664; 96372; 96374; 96375; 96376; 99285; J0692; J1650; J1720; J1938; J2919; J3490; J7626; J9999